=== PATIENT | male | born 1985 | race Caucasian/White ===

== ENCOUNTER 2019-12-05 20:48 | Inpatient (IN) ==
--- OUTSIDE RECORDS SUMMARY | 2019-12-05 20:49 | External Medical Summary | Continuity of Care Document ---
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 , M.D . Refills: 0 Venlafaxine HCl ER 150 MG Oral Capsule E xtended Release 24 Hour; TAKE 1 CAPSULE DAILY. , M.D. Refills: 0 KlonoPIN 1 MG Oral Tablet; TAKE 1 TABLET EVERY 12 HOURS N EEDED. , M.D. Refills: 0 HYDROcodone-Acetaminophen 5-325 MG Oral Tablet; TAKE 1 TABLET EVERY 4 TO 6 HOURS NEEDED FOR PAIN. JORGE ALBERTO Torres Start: 20-Dec-2013 Quantity: 20 Refills: 0 Tamsulosin HCl - 0.4 MG Oral Capsule; TAKE 1 CAPSULE Daily G JORGE ALBERTO wheeler Nany Start: 20-Dec-2013 Quantity: 30 Refills: 0 Prochlorperazine 25 MG Rectal Suppositor y; INSERT 1 SUPPOSITORY RECTALLY 3 TIMES DAILY. JORGE ALBERTO Torres Nany Start: 20-Dec-2013 Quantity: 9 Refills: 0 Procedures Procedures not documented Immunizations Immunizations not documented Family History Grandparent FH: colon cancer (V16.0) (Z80.0) Status: Active Mother Family history of diabetes mellitus (V18.0) (Z83.3) Status: Active Unknown Family Member Family history of cardiac disorder (V17.49) Status: Active Comments: Family History (Z82.49) Family history of hypertension (V17.49) Status: Active Comments: Family History (Z82.49) Family history of lung cancer (V16.1) (Z80.1) Status: Active Comments: Family History Social History - Smoking Status Never smoked tobacco Plan of Treatment Planned Observations Planned Goals not documented Results No Known Results Results not documented
[2019-12-05 21:43] LABS: Appearance Urine Clear (Clear); Bilirubin Urine Negative (Negative); Blood Urine Negative (Negative); Color Urine Yellow; Glucose Urine UA Negative (Negative); Ketones Urine Negative (Negative); Leukocyte Esterase Urine Negative (Negative); Nitrite Urine Negative (Negative); Protein Urine Negative (Negative); Urobilinogen Urine Negative (Negative)
[2019-12-05 21:56] LABS: Basophils # (auto) 0.03 K/uL (0-0.2); Basophils % (auto) 0.3 %; Eosinophils # (auto) 0.14 K/uL (0-0.5); Eosinophils % (auto) 1.3 %; Hematocrit (blood only) 45.6 % (42-52); Immature Granulocytes # (auto) 0.03 K/uL (0.00-0.02); Immature Granulocytes % (auto) 0.3 %; Lymphocytes # (auto) 3.27 K/uL (1.2-3.4); Lymphocytes % (auto) 31.5 %; Mean Corpuscular Hemoglobin 32.4 pg (25-34); Mean Corpuscular Hgb Conc 35.1 g/dL (32-36); Mean Corpuscular Volume 92.3 fL (80-100); Mean Platelet Volume 9.2 fL (7.4-10.4); Monocytes # (auto) 1.11 K/uL (0.11-0.59); Monocytes % (auto) 10.7 %; Neutrophils % (auto) 55.9 %; Platelet Count 446 K/uL (130-400); RDW Coefficient of Variation 12.9 % (11.5-14.5); RDW Standard Deviation 43.3 fL (36.4-46.3); Red Blood Count 4.94 M/uL (4.7-6.1); White Blood Count 10.38 K/uL (4.8-10.8)
--- NOTE | 2019-12-05 21:59 | Emergency Department Note ---
Impression & Plan Mood disorder, Involuntary commitment ED Provider Note Provider: Davis Chery MD DATE OF SERVICE: 12/05/2019 CHIEF COMPLAINT: 302 warrant HISTORY OF PRESENT ILLNESS: Patient is a 34-year-old gentleman history of prior depression presenting today with police on a 302 involuntary warrant. Patient states of last several weeks has been a bit depressed. States about 2 weeks ago he felt depression and discussed this with the crisis center today. They sent him home he says and he was going to call for additional assistance in the morning. Patient states that he does not have any active suicidal or homicidal thoughts. Patient denies any hallucinations or voices at this time. Patient states he does not believe he needs inpatient treatment at this time. Not currently seeing an outpatient counselor or therapist or currently on psychiatric medication. Patient states he has been sleeping fine. Patient has been stressed due to some money lost in the stock market recently. Patient states he lives by himself in an apartment. 302 warrant is reviewed with petitioning statement from the crisis center indicating he made multiple statements to them about plans to commit suicide and also made inquiries about possibly sexually assaulting and/or raping girls. REVIEW OF SYSTEMS: A total of 10 review of systems was obtained and negative except as stated above in the HPI. PAST MEDICAL HISTORY: As noted above MEDICATIONS: Denies current medications SOCIAL HISTORY: Patient is a non-smoker. 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 PHYSICAL EXAM: GENERAL: alert and oriented in no acute distress on stretcher Head: normocephalic and atraumatic EYES: No injection, discharge or icterus. ENT: Mucous membranes pink and moist. LUNGS: Airway patent. No retractions. Breath sounds clear HEART: Regular rate and rhythm. No chest wall tenderness SKIN: Acyanotic, warm, dry, without rashes EXTREMITIES: Without swelling or deformity NEUROLOGICAL: No focal deficits. No aphasia. No facial droop or slurred speech. Ambulatory. Psych: Denies any SI or HI. Denies voices or hallucinations. Flattened affect. Patient does endorse some mild depression. Patient's hypertension was referred to PCP HOSPITAL COURSE: 2119 Patient was first seen and H&P performed. Psychiatric classification case manager present. [id number] paperwork completed. Delegate enroute to ED. 0115 patient accepted to 3 S. Reevaluated the patient who states that he is concerned about taking any medications with feeling anxious. Discussed with him I believe he needs medication is making statements that he believes [employer] has causing cancer and is worried about his neighbor down from his apartment. Long discussion with the patient. Ordered oral Risperdal Patient's laboratory studies and imaging reviewed. Differential includes Mood disorder, infection, hypoglycemia, electrolyte abnormalities, cardiac sources, intracerebral event, toxicologic, trauma, neurologic, as well as other pathologies. IMPRESSION/MEDICAL DECISION MAKING: Patient presents on an involuntary mental health warrant. Patient denies any active symptoms to me other than depression. Denies suicidality. Medical clearance was completed. Seen conjunction with psychiatric classification case manager. The petitioning statement is highly concerning. Patient is a history of psychosis with prior admission to inpatient psychiatric care in 2011. Not currently seeing outpatient treatment or on medications. Very concerned given the retorted petition statement from the crisis center. Believe involuntary grounds exist. 302 was completed. Patient accepted 3 S. further inpatient care. Later on reevaluation the patient seems to be having more psychotic and grandiose thoughts. DIAGNOSIS: mood disorder, involuntary comittment DISPOSITION: Psychiatric Placement 3S Past Med/Surg History Social History Feels Safe at Home: Yes Smoking Status: Never smoker Allergies Allergies Allergy/AdvReac Type Severity Reaction Status Date / Time Penicillins Allergy Unknown Unknown Verified 12/05/19 21:45 Sulfa (Sulfonamide Allergy Unknown Unknown Verified 12/05/19 21:45 Antibiotics) Tobacco Allergy Mild Watery Eye Uncoded 12/05/19 21:45 Home Meds Home Medications Medication Instructions Recorded Confirmed No Known Home Medications 12/05/19 12/05/19 Results & Data (ED) Vital Signs Vital Signs - 24 hr 12/05/19 21:01 12/05/19 23:58 12/06/19 01:11 Temperature 37.1 C Temperature Source Oral Pulse Rate 130 H Pulse Rate [Left] 110 H 102 H Respiratory Rate 17 20 20 Respiratory Effort / Characteristics Non-Labored Spontaneous Non-Labored Spontaneous Respiratory Depth Normal Normal Blood Pressure 144/119 H Blood Pressure [Left Arm] 132/101 H 132/86 Blood Pressure Mean 127 Blood Pressure Mean [Left Arm] 111 101 Blood Pressure Position [Left Arm] Sitting Lying Pulse Oximetry 99 96 96 Oxygen Delivery Method Room Air Room Air Room Air Sepsis Recent Fever Within 48 Hours No Sepsis New/Unexplained Change in Mental Status No Sepsis Action Taken by Nursing No Action Required Laboratory Data Result diagrams: 12/05/19 21:37 12/05/19 21:37 Lab Results 12/05/19 12/05/19 12/05/19 Range/Units 21:04 21:04 21:37 WBC 10.38 (4.8-10.8) K/uL RBC 4.94 (4.7-6.1) M/uL Hgb 16.0 (14.0-18.0) g/dL Hct 45.6 (42-52) % MCV 92.3 (80-100) fL MCH 32.4 (25-34) pg MCHC 35.1 (32-36) g/dL RDW Std Deviation 43.3 (36.4-46.3) fL RDW Coeff of Ferdinand 12.9 (11.5-14.5) % Plt Count 446 H (130-400) K/uL MPV 9.2 (7.4-10.4) fL Immature Gran % (Auto) 0.3 % Neut % (Auto) 55.9 % Lymph % (Auto) 31.5 % [place] % (Auto) 10.7 % Eos % (Auto) 1.3 % Baso % (Auto) 0.3 % Neut # (Auto) 5.80 (1.4-6.5) K/uL Lymph # (Auto) 3.27 (1.2-3.4) K/uL [place] # (Auto) 1.11 H (0.11-0.59) K/uL Eos # (Auto) 0.14 (0-0.5) K/uL Baso # (Auto) 0.03 (0-0.2) K/uL Immature Gran # (Auto) 0.03 H (0.00-0.02) K/uL Sodium (136-145) mmol/L Potassium (3.5-5.1) mmol/L Chloride (98-107) mmol/L Carbon Dioxide (21-32) mmol/L Anion Gap (3-11) BUN (7-18) mg/dl Creatinine (0.6-1.4) mg/dl Est Cr Clr Drug Dosing ml/min Est GFR ( Amer) Est GFR (Non-Af Amer) BUN/Creatinine Ratio (10-20) Glucose (70-99) mg/dl Calcium (8.5-10.1) mg/dl Total Bilirubin (0.2-1) mg/dl AST (15-37) U/L ALT (12-78) U/L Alkaline Phosphatase (45-117) U/L Total Protein (6.4-8.2) gm/dl Albumin (3.4-5.0) gm/dl Globulin (2.5-4.0) gm/dl Albumin/Globulin Ratio (0.9-2) TSH (0.300-4.500) uIu/ml Urine Color Yellow Urine Appearance Clear (Clear) Urine pH 7.0 (4.5-7.5) Ur Specific [place] 1.010 (1.000-1.030) Urine Protein Negative (Negative) Urine Glucose (UA) Negative (Negative) Urine Ketones Negative (Negative) Urine Blood Negative (Negative) Urine Nitrite Negative (Negative) Urine Bilirubin Negative (Negative) Urine Urobilinogen Negative (Negative) Ur Leukocyte Esterase Negative (Negative) Salicylates (2.8-20) mg/dl Urine Opiates Screen Neg (Neg) Ur Methadone, Qual Neg (Neg) Acetaminophen (10-30) ug/ml Urine Barbiturates Neg (Neg) Ur Phencyclidine (PCP) Neg (Neg) U Amphetamin/Meth Scrn Neg (Neg) MDMA (Ecstasy) Screen Neg (Neg) U Benzodiazepines Scrn Neg (Neg) Ur Cocaine Metabolite Neg (Neg) U Marijuana (THC) Screen Neg (Neg) Ethyl Alcohol mg/dL (0-3) mg/dl 12/05/19 12/05/19 12/05/19 Range/Units 21:37 21:37 21:37 WBC (4.8-10.8) K/uL RBC (4.7-6.1) M/uL Hgb (14.0-18.0) g/dL Hct (42-52) % MCV (80-100) fL MCH (25-34) pg MCHC (32-36) g/dL RDW Std Deviation (36.4-46.3) fL RDW Coeff of Ferdinand (11.5-14.5) % Plt Count (130-400) K/uL MPV (7.4-10.4) fL Immature Gran % (Auto) % Neut % (Auto) % Lymph % (Auto) % [place] % (Auto) % Eos % (Auto) % Baso % (Auto) % Neut # (Auto) (1.4-6.5) K/uL Lymph # (Auto) (1.2-3.4) K/uL [place] # (Auto) (0.11-0.59) K/uL Eos # (Auto) (0-0.5) K/uL Baso # (Auto) (0-0.2) K/uL Immature Gran # (Auto) (0.00-0.02) K/uL Sodium 136 (136-145) mmol/L Potassium 3.5 (3.5-5.1) mmol/L Chloride 105 (98-107) mmol/L Carbon Dioxide 25 (21-32) mmol/L Anion Gap 6.0 (3-11) BUN 12 (7-18) mg/dl Creatinine 1.31 (0.6-1.4) mg/dl Est Cr Clr Drug Dosing 78.0 ml/min Est GFR ( Amer) 80.6 Est GFR (Non-Af Amer) 69.6 BUN/Creatinine Ratio 9.0 L (10-20) Glucose 187 H (70-99) mg/dl Calcium 8.8 (8.5-10.1) mg/dl Total Bilirubin 0.4 (0.2-1) mg/dl AST 15 (15-37) U/L ALT 37 (12-78) U/L Alkaline Phosphatase 70 (45-117) U/L Total Protein 8.2 (6.4-8.2) gm/dl Albumin 4.1 (3.4-5.0) gm/dl Globulin 4.1 H (2.5-4.0) gm/dl Albumin/Globulin Ratio 1.0 (0.9-2) TSH 3.680 (0.300-4.500) uIu/ml Urine Color Urine Appearance (Clear) Urine pH (4.5-7.5) Ur Specific [place] (1.000-1.030) Urine Protein (Negative) Urine Glucose (UA) (Negative) Urine Ketones (Negative) Urine Blood (Negative) Urine Nitrite (Negative) Urine Bilirubin (Negative) Urine Urobilinogen (Negative) Ur Leukocyte Esterase (Negative) Salicylates < 1.7 L (2.8-20) mg/dl Urine Opiates Screen (Neg) Ur Methadone, Qual (Neg) Acetaminophen < 2 L (10-30) ug/ml Urine Barbiturates (Neg) Ur Phencyclidine (PCP) (Neg) U Amphetamin/Meth Scrn (Neg) MDMA (Ecstasy) Screen (Neg) U Benzodiazepines Scrn (Neg) Ur Cocaine Metabolite (Neg) U Marijuana (THC) Screen (Neg) Ethyl Alcohol mg/dL < 3.0 (0-3) mg/dl Discharge Plan Visit Data Chief Complaint: Mental Health Evaluation Stated Complaint: EVALUATION ED Provider: Davis Chery Discharge Problem: Mood disorder, Involuntary commitment Forms Stand Alone Forms: [facility], Suicide Prevention Resources Prescriptions Prescriptions: No Action No Known Home Medications RF: 0
[2019-12-05 22:03] LABS: Amphetamines+Metham, Urine Neg (Neg); Barbiturates, Urine Neg (Neg); Benzodiazepine, Urine Neg (Neg); Cocaine, Urine Neg (Neg); MDMA (Ecstacy), Urine Neg (Neg); Methadone, Urine Neg (Neg); Opiate, Urine Neg (Neg); Phencyclidine, Urine Neg (Neg)
[2019-12-05 22:13] LABS: Albumin Level 4.1 gm/dl (3.4-5.0); Calcium 8.8 mg/dl (8.5-10.1); Est GFR (African American) 80.6; Est GFR (Non-African American) 69.6; Potassium 3.5 mmol/L (3.5-5.1)
[2019-12-05 22:16] LABS: Acetaminophen < 2 ug/ml (10-30); Salicylate < 1.7 mg/dl (2.8-20)
[2019-12-05 22:23] LABS: Bilirubin,Total 0.4 mg/dl (0.2-1); Globulin 4.1 gm/dl (2.5-4.0); Thyroid Stimulating Hormone 3.68 uIu/ml (0.300-4.500); Total Protein 8.2 gm/dl (6.4-8.2)
[2019-12-06] MEDS ORDERED: risperiDONE 2 MG TABLET PO STA (01:21)
[2019-12-06] MEDS ORDERED: ALUMINUM/MAGNESIUM SUSP 30 ML UDC PO PRN (01:24)
[2019-12-06] MEDS ORDERED: SODIUM CHLORIDE 0.65% NA SOLN 45 ML (OCEAN) PRN (01:24)
[2019-12-06] MEDS ORDERED: ACETAMINOPHEN 325 MG TAB PO PRN (01:24)
[2019-12-06] MEDS ORDERED: MAGNESIUM HYDROXIDE SUSP 30 ML UDC PO PRN (01:24)
[2019-12-06] MEDS ORDERED: BISMUTH SUBSALICYLATE PER ML OMNICELL CHARGE PO PRN (01:24)
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
[2019-12-06] MEDS: RISPERIDONE ODT 1MG PO SCH ×2 (10:10→21:17)
[2019-12-07 08:08] LABS: Glucose Fasting 100 mg/dl (70-99)
[2019-12-07 08:14] LABS: Chol HDL Ratio 5; Cholesterol 183 mg/dl (0-200); HDL Cholesterol 38 mg/dl; LDL Cholesterol Calculated 120 mg/dl; Triglycerides 123 mg/dl (0-150); VLDL Cholesterol 25 mg/dl
[2019-12-07] MEDS: RISPERIDONE ODT 1MG PO SCH ×2 (08:44→22:27)
--- NOTE | 2019-12-07 11:42 | Psychiatric Progress Note ---
Date of Service December 07, 2019 Impression / Recommendations Impression The patient is a 34-year-old single male who has a history of psychosis NOS and mood disorder NOS, with multiple previous hospitalizations, but although he has had multiple visits to the emergency room for psychiatric complaints such as "depression," he has not been seen here on the inpatient unit for approximately 9 years and says he has not had any psychiatric treatment for the last several years. He presented initially with self-reports of suicidal ideation with various plans, including hanging, self poisoning, etc. Clinical findings at admission included mood alterations and psychotic symptoms. He initially initially reporting depressive symptoms and suicidal ideation with multiple plans, but within 24 hours began to state that his mood was "great." Also, his affect was somewhat expansive, his speech was notably disorganized but was also pressured, voluminous, and suggestive of flight of ideas. It was noted that he had been treated successfully with risperidone and lithium during hospitalizati on here at [facility] in 2011, and has agreed to resume risperidone initially. Risperidone 1 mg twice a day was prescribed, and the patient's response appeared to be favorable. He began sleeping well, reported that he felt that he had "calm down," and we noticed that his thoughts were significantly more organized and focused. His behavior remains slightly intrusive with his peers, but he consistently reported that he was not having any suicidal thoughts, and continue to express an ongoing desire to continue his treatment on an outpatient basis. Given the history, and given the ongoing evidence of some symptoms of viviane, as well as some elements that suggest that the patient may not be fully forthcoming regarding a history of intentional self-injurious behaviors in the past, we are recommending that continued inpatient treatment so that we can reinstitute lithium carbonate, titrated as necessary, and determine his response before returning him to the community. James rosario, as of 11/27/2019 it is determined that the patient, while in need of intensive treatment, is unwilling to agree to stay in the hospital voluntarily, and we do not find that he will meet [place] criteria for inpatient psychiatric treatment beyond 12/10/2019. (1) Psychosis: 12/05 -continue hospitalization on 302, in a medically necessary private r oom due to psychosis. His 302 expires on Tuesday. Continue to gather information toward the need for further involuntary commitment. -Previously diagnosed with psychosis NOS, unknown what his outpatient diagnosis was, and has not been in treatment for years. Differential includes schizophrenia, schizoaffective disorder, and a psychotic mood disorder. -He agreed to resume risperidone as it was helpful in the past, and will start 1 mg twice daily with fasting labs tomorrow. Reviewed risks and benefits, and patient has tolerated first 2 doses well. -Gather collateral information if able to identify any supports in the community. 12/06 -Patient reports that he feels that he is responding favorably to risperidone. He notes some difficulty with sedation, and, more specifically, says that he misses having as much energy has he had had prior to admission. However, he also agrees that his thinking has become more organized, he has become more calm, and he is now sleeping well. -We discussed with the patient the fact that he had responded favorably to a combination of risperidone and lithium carbonate in the past, and the patient said that he recalls taking lithium carbonate and does not recall any adverse effects. However, he seemed ambivalent about the question of adding a second psychiatric medication at this point. We recommended that he remain in the hospital so that we can restart lithium carbonate as a mood stabilizer. He accepts that he is having mood alterations and mood swings, and does endorse certain symptoms consistent with viviane in the recent past. However, he is not willing to remain hospitalized voluntarily, and we do not find at this time that he can be expected to continue to meet criteria for involuntary treatment following another 2 or 3 days of observation and medication adjustments as indicated. -The patient's request is that the decision to start lithium be made on an outpatient basis. He reports intent to be fully adherent with the outpatient medication and reiterates that the reason that he had the mental health hotline was in order to secure outpatient services. -Some of the patient's reports are contradictory, or seem somewhat unlikely. For example, he told me that he was always very close with his mother, and that she had in 2012 of amyotrophic lateral sclerosis. When I asked him if that might of had something to do with his psychiatric hospitalization, he responded by saying, "no, I do not think that my being in the hospital had anything to do with it. I then asked him if he had been with his mother when she , and he said that he had not. I asked him if he attended a or memorial service for his mother, and he said "I do not remember. I do not think so." He also told me that he had been close with his father who we reports within a year of his mother. He also said he could remember if he went to a memorial or service for his father, but he did say that he knows that his father of lung cancer. (2) Mood disorder: 12/05 -differential includes psychotic depression or bipolar disorder. Assessment limited as patient is a poor historian. Although he reports primary depressive symptoms, his affect is expansive, and this morning he was singing and dancing and is reporting good mood. Attempt to identify someone for collateral information as above, and continue to monitor and observe mood symptoms here. He had a good response to lithium when hospitalized here in 2011, so could consider a retrial of that medication. 12/06 -The addition of risperidone 1 mg twice a day seems to have stabilized the patient's mood to some degree. The clinical data so far would suggest that the patient may meet criteria for a rapid cycling bipolar disorder or, possibly, for schizoaffective disorder bipolar type. -The patient does endorse certain manic symptoms prior to admission, as well as yesterday. He feels that risperidone has assisted him in that regard and that he has noted that his mood seems more stable. He also reports that he feels that he is more often depressed than manic. When asked to talk about his initial statement that he is "the greatest kana in the world," he initially said that he was kidding and that he understands that that sounds grandiose, but he also was able to say that in the past he has sometimes felt that way. -The patient's thought content today is probably more consistent with depression. He was somewhat self depreciating and talked about the fact that he has had difficulty with various academic pursuits (he claims that within the past 8 years she has tried several colleges, including [employer] without success). 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 He externalizes responsibility for the fact that he lost both of these jobs, but says that he recognizes that at the age of 34 he should have a steady source of income and more friendsalthough he says that he currently has 2 fairly close friends that he can count on. Risk Factors Assessment Male: Yes : Yes Do You Have Access To A Gun?: No (Patient said he is unable to own a gun as he has been involuntarily committed in the past.) Health Problems: Yes Mental Health Diagnoses: Yes Substance Use Disorders: No Previous Attempt: Yes Previous Psychiatric Hospitalization: Yes Smoker: No Protective Factors Assessment Cheondoism Beliefs: Yes : No Responsible for Young Children: No Employed: No Supportive Family: No Good Rapport with Provider: No Interval History Chief Complaint "Depressed, I guess". Review of Systems Sleep Information Total Hours of Sleep: 7.75 Sleep Comments: + 2.5hrs on evening shift Meal Information Percent Meal Consumed - Breakfast: 100 Percent Meal Consumed - Lunch: 100 Percent Meal Consumed - Dinner: 95 Subjective Subjective Patient was seen & assessed and interval progress reviewed with treatment team. I met individually with the patient in order to assess his current mental status, evaluate his response to treatment, coordinate any necessary changes in the patient's treatment plan with the patient, and address issues, questions and concerns that may arise. I began by asking the patient to tell me a little bit about himself, and he responded, "okay. I am the greatest kana in the world!" However, he laughed and said that he was simply joking. He also added, "That sounds grandiose, doen't it? He reports that prior to admission he had been experiencing decreased sleep, decreased desire for sleep, increased energy, and difficulty with racing thoughts. At the same time, he said that he had been feeling "kind of lonely and depressed," and explained that he had called a mental health hotline and reported suicidal ideas with suicidal plans, not because he was actually suicidal, but because he was hoping that the threats of suicide would cause the people at the other end of the line to be more likely to actively help him obtain treatment. More specifically, he said that he was looking for an outpatient therapist, a psychiatrist, and "an opportunity to make friends." He acknowledges that he has been in psychiatric treatment, off and on, since childhood ("about the age of 5, I think," he said), but he notes that he has not been in treatment either on an inpatient or an outpatient basis for several years. When asked about suicidal thoughts, the patient reiterated that he had never had suicidal thoughts, but had mistakenly assumed that if he said he was suicidal that would be "a shortcut" to getting an outpatient provider sooner. According the patient, he has no history of suicide attempts, but he does acknowledge a history of intentional self-injurious behaviors as a way of handling stress. The admission history and physical from a 2012 admission to the behavioral health unit references an unspecified history of a suicide attempt, but when the patient was confronted about this he reported that he has deliberately cut himself, but has never actually made a suicide attempt. The patient reports that he does not have any history of intentionally causing physical harm to the person or property of others. Physical Exam Psychiatric Orientation: alert, oriented x 3 and cooperative Apperance: appropriately dressed and appropriately groomed Eye Contact: + fair eye contact Motor Behavior: steady gait and station Speech: normal rate/rhythm/volume of speech Affect: + constricted affect "I guess it is okay." Thought Process: + tangential thought process The patient appears to be somewhat guarded, but no delusional material is elicited. Suicidal Thoughts: denies suicidal thoughts With reference to the patient's preadmission expression of suicidal ideation with multiple plans, the patient reports that he actually never had any suicidal plans and only reported suicidal ideation as a way of securing more rapid treatment and assistance. Homicidal Thoughts: denies homicidal thoughts Hallucinations: + auditory hallucinations The patient reports that in the past he has experienced both visual and auditory hallucinations. He notes that the hallucinations often were of a running commentary nature, and sometimes he would hear more than 1 voice talking back and forth, often as an observation of the patient's behavior such as, "Is he brushing his teeth?" (Voice#1) followed by, "Yes, he is doing it right now." (Voice #2) the patient notes, unconvincingly, that he was successful in stopping the voices through "deep meditation." He also says that he has not had any recent visual disturbances. Cognition: recent memory grossly intact, remote memory grossly intact, attention grossly intact and language grossly intact Estimated Intelligence: + above average estimated intelligence Insight: + limited insight The patient does recognize his need for treatment, although he seems to believe that part of his treatment will be to find friends for him. 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 Judgement: + impaired judgement We are recommending continued inpatient treatment. The old records indicate that he had responded well to the addition of lithium carbonate, and we talked to him about our preference that he stay in the hospital so that we could begin, titrate, and evaluate his response to lithium prior to discharge. The patient's focus was on leaving. Vital Signs (Past 24 Hours) Last Vital Signs Temp 36.8 C 12/07/19 06:00 Pulse 89 12/07/19 06:20 Resp 18 12/07/19 06:00 BP 113/78 12/07/19 06:20 Pulse Ox 96 12/06/19 02:27 Results & Data ([facility]) Laboratory Results Laboratory Results - last 24 hr 12/07/19 07:26 Fasting Glucose 100 H Triglycerides 123 Cholesterol 183 LDL Cholesterol, Calc 120 VLDL Cholesterol, Calc 25 HDL Cholesterol 38 Cholesterol/HDL Ratio 5 Current Inpatient Medications Current Inpatient Medications: Current Inpatient Medications Acetaminophen (Tylenol) 650 mg PO Q4H PRN PRN Reason: Headache or Minor Fever Stop: 01/05/20 01:23 Al Hydrox/Mg Hydrox/Simethicone (Maalox) 30 ml PO Q4H PRN PRN Reason: GI Upset Stop: 01/05/20 01:23 Bismuth Subsalicylate (Kaopectate) 15 ml PO PRN PRN PRN Reason: Loose Stool Stop: 01/05/20 01:23 Hydroxyzine HCl (Vistaril) 50 mg PO HSZ PRN PRN Reason: Insomnia Stop: 01/05/20 01:23 Hydroxyzine HCl (Vistaril) 25 mg PO Q4H PRN PRN Reason: Anxiety Stop: 01/05/20 01:23 Magnesium Hydroxide (Milk Of Magnesia) 30 ml PO DAILY PRN PRN Reason: Constipation Stop: 01/05/20 01:23 Risperidone (Risperdal M) 1 mg PO BID MOUNIKA Stop: 01/05/20 09:59 Last Admin: 12/07/19 08:44 Dose: 1 mg Documented by: Sodium Chloride ([place] Nasal) 1 - 2 sprays NA PRN PRN PRN Reason: Nasal Dryness/Congestion Stop: 01/05/20 01:23 Mental Health & Subst Abuse Tx Psychiatrist Name of Psychiatrist: Toshia Zambrano Psychiatrist's Psychiatric Appointment Comment: [phone] [facility] [place] Office Technologist Name of Office Technologist: willing to get one Post Discharge Appointments Primary Care Physician Name Of Family Doctor: Mee Verduzco Primary Care Provider Appointment Comment: [address] [place] [id number] Contact Information Discharge Discharge Address: [address] [place] [address]
[2019-12-07] MEDS ORDERED: risperiDONE 1 MG TABLET PO PRN (15:03)
[2019-12-07] MEDS ORDERED: LORazepam 0.5 MG TAB PO PRN (15:05)
[2019-12-07] MEDS: LITHIUM CARBONATE 300 MG TAB PO SCH ×2 (16:51→22:26)
[2019-12-07] MEDS ORDERED: RISPERIDONE ODT 1MG PO SCH ×2 (22:00)
[2019-12-08] MEDS: LITHIUM CARBONATE 300 MG TAB PO SCH ×2 (08:07→21:32)
[2019-12-08] MEDS: RISPERIDONE ODT 1MG PO SCH ×2 (08:07→21:31)
--- NOTE | 2019-12-08 08:39 | Psychiatric Progress Note ---
Date of Service December 08, 2019 Impression / Recommendations Impression The patient is a 34-year-old single male who has a history of psychosis NOS and mood disorder NOS, with multiple previous hospitalizations, but although he has had multiple visits to the emergency room for psychiatric complaints such as "depression," he has not been seen here on the inpatient unit for approximately 9 years and says he has not had any psychiatric treatment for the last several years. He presented initially with self-reports of suicidal ideation with various plans, including hanging, self poisoning, etc. Clinical findings at admission included mood alterations and psychotic symptoms. Within 24 hours he began to state that his mood was "great," and affect appeared expansive, with notably disorganized, pressured, and voluminous speech, suggestive of flight of ideas. It was noted that he had been treated successfully with risperidone and lithium during hospitalization here at [facility] in 2011, and these medications have been resumed. He has been delusional and paranoid, looking for weapons and stating beliefs that terrorists were going to come on the unit and kill everyone. (1) Psychosis: 12/05 -continue hospitalization on , in a medically necessary private room due to psychosis. His 302 expires on Tuesday. Continue to gather information toward the need for further involuntary commitment. -Previously diagnosed with psychosis NOS, unknown what his outpatient diagnosis was, and has not been in treatment for years. Differential includes schizophrenia, schizoaffective disorder, and a psychotic mood disorder. -He agreed to resume risperidone as it was helpful in the past, and will start 1 mg twice daily with fasting labs tomorrow. Reviewed risks and benefits, and patient has tolerated first 2 doses well. -Gather collateral information if able to identify any supports in the community. 12/06 -Patient reports that he feels that he is responding favorably to risperidone. He notes some difficulty with sedation, and, more specifically, says that he misses having as much energy has he had had prior to admission. However, he also agrees that his thinking has become more organized, he has become more calm, and he is now sleeping well. -We discussed with the patient the fact that he had responded favorably to a combination of risperidone and lithium carbonate in the past, and the patient said that he recalls taking lithium carbonate and does not recall any adverse effects. However, he seemed ambivalent about the question of adding a second psychiatric medication at this point. We recommended that he remain in the hospital so that we can restart lithium carbonate as a mood stabilizer. He accepts that he is having mood alterations and mood swings, and does endorse certain symptoms consistent with viviane in the recent past. However, he is not willing to remain hospitalized voluntarily, and we do not find at this time that he can be expected to continue to meet criteria for involuntary treatment following another 2 or 3 days of observation and medication adjustments as indicated. -The patient's request is that the decision to start lithium be made on an outpatient basis. He reports intent to be fully adherent with the outpatient medication and reiterates that the reason that he had the mental health hotline was in order to secure outpatient services. -Some of the patient's reports are contradictory, or seem somewhat unlikely. For example, he told me that he was always very close with his mother, and that she had in 2012 of amyotrophic lateral sclerosis. When I asked him if that might of had something to do with his psychiatric hospitalization, he responded by saying, "no, I do not think that my being in the hospital had anything to do with it. I then asked him if he had been with his mother when she , and he said that he had not. I asked him if he attended a or memorial service for his mother, and he said "I do not remember. I do not think so." He also told me that he had been close with his father who we reports within a year of his mother. He also said he could remember if he went to a memorial or service for his father, but he did say that he knows that his father of lung cancer. 12/07 -Increase risperidone to 2 mg twice daily, and continue as needed dose. Continue lithium, consolidate to 900 mg at bedtime for renal protection, and check trough level after 5 days (12/12/2019). -303 hearing scheduled for Tuesday. Attempt to get collateral information from his friend Willard, as this is the only support he can identify. -He will need outpatient care including psychiatry, therapy, and case management. Address on Tuesday (2) Mood disorder: 12/05 -differential includes psychotic depression or bipolar disorder. Assessment limited as patient is a poor historian. Although he reports primary depressive symptoms, his affect is expansive, and this morning he was singing and dancing and is reporting good mood. Attempt to identify someone for collateral information as above, and continue to monitor and observe mood symptoms here. He had a good response to lithium when hospitalized here in 2011, so could consider a retrial of that medication. 12/06 -The addition of risperidone 1 mg twice a day seems to have stabilized the patient's mood to some degree. The clinical data so far would suggest that the patient may meet criteria for a rapid cycling bipolar disorder or, possibly, for schizoaffective disorder bipolar type. -The patient does endorse certain manic symptoms prior to admission, as well as yesterday. He feels that risperidone has assisted him in that regard and that he has noted that his mood seems more stable. He also reports that he feels that he is more often depressed than manic. When asked to talk about his initial statement that he is "the greatest kana in the world," he initially said that he was kidding and that he understands that that sounds grandiose, but he also was able to say that in the past he has sometimes felt that way. -The patient's thought content today is probably more consistent with depression. He was somewhat self depreciating and talked about the fact that he has had difficulty with various academic pursuits (he claims that within the past 8 years she has tried several colleges, including [employer] without success). 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 He externalizes responsibility for the fact that he lost both of these jobs, but says that he recognizes that at the age of 34 he should have a steady source of income and more friendsalthough he says that he currently has 2 fairly close friends that he can count on. Risk Factors Assessment Male: Yes : Yes Do You Have Access To A Gun?: No (Patient said he is unable to own a gun as he has been involuntarily committed in the past.) Health Problems: Yes Mental Health Diagnoses: Yes Substance Use Disorders: No Previous Attempt: Yes Previous Psychiatric Hospitalization: Yes Smoker: No Protective Factors Assessment Gnosticist Beliefs: Yes : No Responsible for Young Children: No Employed: No Supportive Family: No Good Rapport with Provider: No Interval History Identifying Information BOBBY SRINIVASAN is a 34-year-old M who currently lives in [place] alone, has a history of schizophrenia, and was admitted on 12/06/19 01:24 on a 302 involuntary commitment for psychosis and SI with multiple plans. Chief Complaint "Well I'm in here and kind of sad because I wanna get out of here". Review of Systems Sleep Information Total Hours of Sleep: 13.25 Sleep Comments: + 2.5hrs on evening shift Meal Information Percent Meal Consumed - Breakfast: 100 Percent Meal Consumed - Lunch: 100 Percent Meal Consumed - Dinner: 95 Subjective Subjective Patient was seen & assessed and interval progress reviewed with nursing and social work. Staff report patient was delusional and paranoid yesterday, stating that all staff members were the devil, and said he was looking for a weapon because he believed terrorists were going to break onto the unit at any moment and attack. Due to concerns for ongoing psychosis and suicidality, a 303 petition was completed and hearing scheduled for Tuesday. On my assessment today, the patient states he is upset that he is still here as he would like to leave. When asked about his mood, he says that medications "make me a little bit lower in excitedness," and gives conflicting reports about whether mood is better or worse than when he came to the hospital. When asked how he has been sleeping, he says "well, I sleep here," gesturing to his bed. With additional questioning he clarifies that he feels he is sleeping "okay," and when asked if he is getting enough sleep and feels rested, he says "well my eyes burn when I wake up." He is evasive when asked about his statements that staff are the devil and that he fears for his safety here, stating he does not want to talk about it because it "makes me uncomfortable." He says he has spoken to his friend, Willard, who lives locally, but cannot identify any other supports and does not have outpatient follow-up arranged. Physical Exam Psychiatric Orientation: alert and cooperative (Partially, but evasive with questioning, and refuses to answer some questions) Dressed in multiple layers, wearing 2 polo shirts and scrub pants. He was initi ally found standing in his room, staring out the window, holding a banana in his hands. He has a receding hairline and patchy, unkempt facial hair. Eye Contact: + poor eye contact Motor Behavior: steady gait and station and no abnormal motor movements Minimal, delayed, monotone. Affect: + depressed affect (Appears paranoid and fearful) "I have to fight every day to get up and cheer up." Thought Process: + concrete thought process; + thought association not intact Delayed thoughts, paucity of thought content, evasive, at times answers very concretely Thought Content: + preoccupation, + paranoid, + delusions and + persecution Answers with unrelated information Homicidal Thoughts: denies homicidal thoughts Denies hallucinations, but at times appears to be listening to unseen others. Cognition: + recent memory not intact and + attention not intact Insight: + poor insight Judgement: + poor judgement Vital Signs (Past 24 Hours) Last Vital Signs Temp 36.9 C 12/08/19 06:28 Pulse 91 H 12/08/19 06:28 Resp 18 12/08/19 06:28 BP 126/80 12/08/19 06:28 Pulse Ox 96 12/06/19 02:27 Results & Data ([facility]) Current Inpatient Medications Current Inpatient Medications: Current Inpatient Medications Acetaminophen (Tylenol) 650 mg PO Q4H PRN PRN Reason: Headache or Minor Fever Stop: 01/05/20 01:23 Al Hydrox/Mg Hydrox/Simethicone (Maalox) 30 ml PO Q4H PRN PRN Reason: GI Upset Stop: 01/05/20 01:23 Bismuth Subsalicylate (Kaopectate) 15 ml PO PRN PRN PRN Reason: Loose Stool Stop: 01/05/20 01:23 Hydroxyzine HCl (Vistaril) 50 mg PO HSZ PRN PRN Reason: Insomnia Stop: 01/05/20 01:23 Hydroxyzine HCl (Vistaril) 25 mg PO Q4H PRN PRN Reason: Anxiety Stop: 01/05/20 01:23 Bel-Ridge Carbonate (Bel-Ridge Carbonate) 600 mg PO HS MOUNIKA Stop: 01/06/20 21:59 Last Admin: 12/07/19 22:26 Dose: 600 mg Documented by: Bel-Ridge Carbonate (Bel-Ridge Carbonate) 300 mg PO QAM MOUNIKA Stop: 01/06/20 14:59 Last Admin: 12/08/19 08:07 Dose: 300 mg Documented by: Lorazepam (Ativan) 0.5 mg PO Q6H PRN PRN Reason: Anxiety/Agitation Stop: 01/06/20 15:04 Last Admin: 12/07/19 15:20 Dose: 0.5 mg Documented by: Magnesium Hydroxide (Milk Of Magnesia) 30 ml PO DAILY PRN PRN Reason: Constipation Stop: 01/05/20 01:23 Risperidone (Risperdal M) 1 mg PO DAILY MOUNIKA Stop: 01/07/20 08:59 Last Admin: 12/08/19 08:07 Dose: 1 mg Documented by: Risperidone (Risperdal M) 2 mg PO HS MOUNIKA Stop: 01/06/20 21:59 Last Admin: 12/07/19 22:27 Dose: 2 mg Documented by: Risperidone (Risperdal) 1 mg PO Q6H PRN PRN Reason: viviane/anxiety/agitation Stop: 01/06/20 15:02 Last Admin: 12/07/19 15:24 Dose: 1 mg Documented by: Sodium Chloride (Wharton Nasal) 1 - 2 sprays NA PRN PRN PRN Reason: Nasal Dryness/Congestion Stop: 01/05/20 01:23 Mental Health & Subst Abuse Tx Psychiatrist Name of Psychiatrist: Toshia Zambrano Psychiatrist's Psychiatric Appointment Comment: [phone] [facility] Economist Name of Tax Economist: PRASAD Phone Number for Tax Economist: [phone] Case Management Appointment Comment: [address] [facility], [address] [place] [address] Post Discharge Appointments Primary Care Physician Name Of Family Doctor: Mee Verduzco Primary Care Provider Appointment Comment: [address] [place] [address] Contact Information Discharge Discharge Address: [address] [place] [address], [place] [address]
--- NOTE | 2019-12-09 08:19 | Psychiatric Progress Note ---
Date of Service December 09, 2019 Impression / Recommendations Impression The patient is a 34-year-old single male who has a history of psychosis NOS and mood disorder NOS, with multiple previous hospitalizations, but although he has had multiple visits to the emergency room for psychiatric complaints such as "depression," he has not been seen here on the inpatient unit for approximately 9 years and says he has not had any psychiatric treatment for the last several years. He presented initially with self-reports of suicidal ideation with various plans, including hanging, self poisoning, etc. Clinical findings at admission included mood alterations and psychotic symptoms. Within 24 hours he began to state that his mood was "great," and affect appeared expansive, with notably disorganized, pressured, and voluminous speech, suggestive of flight of ideas, but mood continues to vacillate with both depressive and manic symptoms. He remains psychotic, disorganized, with delusions of persecution and paranoia, and is very guarded and reluctant to discuss the symptoms. It was noted that he had been treated successfully with risperidone and lithium during hospitalization here at [facility] in 2011, and these medications have been resumed. He has been delusional and paranoid, looking for weapons and stating beliefs that terrorists were going to come on the unit and kill everyone. He is on a 302 involuntary commitment, with a 303 hearing scheduled for tomorrow. (1) Psychosis: 12/05 -continue hospitalization on 302, in a medically necessary private room due to psychosis. His 302 expires on Tuesday. Continue to gather information toward the need for further involuntary commitment. -Previously diagnosed with psychosis NOS, unknown what his outpatient diagnosis was, and has not been in treatment for years. Differential includes schizophrenia, schizoaffective disorder, and a psychotic mood disorder. -He agreed to resume risperidone as it was helpful in the past, and will start 1 mg twice daily with fasting labs tomorrow. Reviewed risks and benefits, and patient has tolerated first 2 doses well. -Gather collateral information if able to identify any supports in the community. 12/06 -Patient reports that he feels that he is responding favorably to risperidone. He notes some difficulty with sedation, and, more specifically, says that he misses having as much energy has he had had prior to admission. However, he also agrees that his thinking has become more organized, he has become more calm, and he is now sleeping well. -We discussed with the patient the fact that he had responded favorably to a combination of risperidone and lithium carbonate in the past, and the patient said that he recalls taking lithium carbonate and does not recall any adverse effects. However, he seemed ambivalent about the question of adding a second psychiatric medication at this point. We recommended that he remain in the hospital so that we can restart lithium carbonate as a mood stabilizer. He accepts that he is having mood alterations and mood swings, and does endorse certain symptoms consistent with viviane in the recent past. However, he is not willing to remain hospitalized voluntarily, and we do not find at this time that he can be expected to continue to meet criteria for involuntary treatment following another 2 or 3 days of observation and medication adjustments as indicated. -The patient's request is that the decision to start lithium be made on an outpatient basis. He reports intent to be fully adherent with the outpatient medication and reiterates that the reason that he had the mental health hotline was in order to secure outpatient services. -Some of the patient's reports are contradictory, or seem somewhat unlikely. For example, he told me that he was always very close with his mother, and that she had in 2012 of amyotrophic lateral sclerosis. When I asked him if that might of had something to do with his psychiatric hospitalization, he responded by saying, "no, I do not think that my being in the hospital had anything to do with it. I then asked him if he had been with his mother when she , and he said that he had not. I asked him if he attended a or memorial service for his mother, and he said "I do not remember. I do not think so." He also told me that he had been close with his father who we reports within a year of his mother. He also said he could remember if he went to a memorial or service for his father, but he did say that he knows that his father of lung cancer. 12/07 -Increase risperidone to 2 mg twice daily, and continue as needed dose. Continue lithium, consolidate to 900 mg at bedtime for renal protection, and check trough level after 5 days (12/12/2019). -303 hearing scheduled for Tuesday. Attempt to get collateral information from his friend Willard, as this is the only support he can identify. -He will need outpatient care including psychiatry, therapy, and case management. Address on Tuesday. 12/08 -Social work attempting to contact his friend Willard for collateral information. 303 hearing tomorrow. -Continue current medication doses. Discussed option of switching risperidone to paliperidone, given patient's concern about side effects and also to allow an option of an ROBERT, but he was unwilling to do this. Previously responded to 6 mg daily of risperidone, so may need further dose titration. (2) Mood disorder: 12/05 -differential includes psychotic depression or bipolar disorder. Assessment limited as patient is a poor historian. Although he reports primary depressive symptoms, his affect is expansive, and this morning he was singing and dancing and is reporting good mood. Attempt to identify someone for collateral information as above, and continue to monitor and observe mood symptoms here. He had a good response to lithium when hospitalized here in 2011, so could consider a retrial of that medication. 12/06 -The addition of risperidone 1 mg twice a day seems to have stabilized the patient's mood to some degree. The clinical data so far would suggest that the patient may meet criteria for a rapid cycling bipolar disorder or, possibly, for schizoaffective disorder bipolar type. -The patient does endorse certain manic symptoms prior to admission, as well as yesterday. He feels that risperidone has assisted him in that regard and that he has noted that his mood seems more stable. He also reports that he feels that he is more often depressed than manic. When asked to talk about his initial statement that he is "the greatest kana in the world," he initially said that he was kidding and that he understands that that sounds grandiose, but he also was able to say that in the past he has sometimes felt that way. -The patient's thought content today is probably more consistent with depression. He was somewhat self depreciating and talked about the fact that he has had difficulty with various academic pursuits (he claims that within the past 8 years she has tried several colleges, including [employer] without success). 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 He externalizes responsibility for the fact that he lost both of these jobs, but says that he recognizes that at the age of 34 he should have a steady source of income and more friendsalthough he says that he currently has 2 fairly close friends that he can count on. Risk Factors Assessment Male: Yes : Yes Do You Have Access To A Gun?: No (Patient said he is unable to own a gun as he has been involuntarily committed in the past.) Health Problems: Yes Mental Health Diagnoses: Yes Substance Use Disorders: No Previous Attempt: Yes Previous Psychiatric Hospitalization: Yes Smoker: No Protective Factors Assessment Sikh Beliefs: Yes : No Responsible for Young Children: No Employed: No Supportive Family: No Good Rapport with Provider: No Interval History Identifying Information BOBBY SRINIVASAN is a 34-year-old M who currently lives in [place] alone, has a history of schizophrenia, and was admitted on 12/06/19 01:24 on a 302 involuntary commitment for psychosis and SI with multiple plans. Chief Complaint " I don't feel good in my stomach". Review of Systems Sleep Information Total Hours of Sleep: 8 Sleep Comments: + 2.5hrs on evening shift Meal Information Percent Meal Consumed - Breakfast: 100 Percent Meal Consumed - Lunch: 100 Percent Meal Consumed - Dinner: 100 Subjective Subjective Patient was seen & assessed and interval progress reviewed with nursing and social work. Staff report he remains disorganized, labile, paranoid and delusional, told staff there were "the devil," and was unable to interact appropriately during a game of checkers. He attended community meeting and participated, but many of his responses were unrelated and bizarre despite attempts to redirect him. He refused his morning dose of risperidone, stating that he thought it made him feel nauseated after he took it last night, although he had just finished eating a large breakfast. On my assessment, he states that he is worried about various side effects that could be related to medications, including nausea which occurred last night, denies vomiting, constipation, diarrhea. He also reports "tired, like the blood is draining from my head," and says "my eye is not moving right." He attributes all of these somatic concerns to medication, stating he would like to decrease his doses of medication. Reports thoughts are "confusing, my brain's going 'blaaahhhh blaaahhh', instead of words." He continues to report paranoia and persecutory delusions, but does not want to discuss the details, stating that it scares him and that if he does not think about it he does not feel as scared. He reports continued concerns that others would harm him, but then says he would like to leave the hospital although he cannot review any kind of safety plan. He denies suicidal thoughts, and says he thinks they resolved because "I was scared." Shortly after that, he says that he is still very fearful. Discussed his concerns about medications, including that any antipsychotic we use will likely cause some side effects in the short-term, and that this is expected in the acute stabilization phase. Also discussed various alternatives to his current medications, including a switch to paliperidone or similar antipsychotic with a lower side effect risk, but he declined this stating "A[employer], that heartburn drug, they said it causes diseases." He ultimately said he wants to stay on his current medications, and explained that the plan was to titrate his doses to the previously effective doses, and that we are not yet there, and that given ongoing symptoms, I cannot recommend decreasing his doses. We discussed other ways to mitigate side effects, and encouraged him to drink more water as he had been drinking more coffee yesterday per his report. Discussed his 303 hearing tomorrow and explained what I would be saying and again reviewed treatment recommendations. He abruptly interrupted to say "you've been asking me about pooping for 5 days, now I actually need to poop." Advised him to go to the bathroom if he needed to, and he replied "now it's stopped." He was unable to indicate whether he was in agreement with the treatment recommendations or not, asking what he should say at the hearing and was advised to talk to his workers compensation defense attorney. He then said he would agree to "what ever is best," but immediately said he wanted his medication doses reduced. Physical Exam Psychiatric Orientation: alert and cooperative Apperance: appropriately dressed Dressed casually in a T-shirt, receding hairline, patchy facial hair. Seated in no acute distress. Eye Contact: + fair eye contact Motor Behavior: steady gait and station and no abnormal motor movements Halting speech, often does not finish sentences Affect: + depressed affect, + anxious affect and + constricted affect "Really tired." Thought Process: + tangential thought process Disorganized, often answers with unrelated information, or makes conflicting statements Thought Content: + paranoid, + delusions, + ideas of reference and + persecution Suicidal Thoughts: denies suicidal thoughts Homicidal Thoughts: denies homicidal thoughts But reports fears that others want to kill him Hallucinations: no auditory hallucinations Cognition: + recent memory not intact and + attention not intact Insight: + limited insight Judgement: + limited judgement Vital Signs (Past 24 Hours) Last Vital Signs Temp 36.7 C 12/09/19 06:39 Pulse 99 H 12/09/19 06:39 Resp 18 12/09/19 06:39 BP 133/93 12/09/19 06:39 Pulse Ox 96 12/06/19 02:27 Results & Data ([facility]) Current Inpatient Medications Current Inpatient Medications: Current Inpatient Medications Acetaminophen (Tylenol) 650 mg PO Q4H PRN PRN Reason: Headache or Minor Fever Stop: 01/05/20 01:23 Al Hydrox/Mg Hydrox/Simethicone (Maalox) 30 ml PO Q4H PRN PRN Reason: GI Upset Stop: 01/05/20 01:23 Bismuth Subsalicylate (Kaopectate) 15 ml PO PRN PRN PRN Reason: Loose Stool Stop: 01/05/20 01:23 Hydroxyzine HCl (Vistaril) 50 mg PO HSZ PRN PRN Reason: Insomnia Stop: 01/05/20 01:23 Hydroxyzine HCl (Vistaril) 25 mg PO Q4H PRN PRN Reason: Anxiety Stop: 01/05/20 01:23 Kunkle Carbonate (Kunkle Carbonate) 900 mg PO HS MOUNIKA Stop: 01/08/20 21:59 Lorazepam (Ativan) 0.5 mg PO Q6H PRN PRN Reason: Anxiety/Agitation Stop: 01/06/20 15:04 Last Admin: 12/07/19 15:20 Dose: 0.5 mg Documented by: Magnesium Hydroxide (Milk Of Magnesia) 30 ml PO DAILY PRN PRN Reason: Constipation Stop: 01/05/20 01:23 Risperidone (Risperdal) 1 mg PO Q6H PRN PRN Reason: viviane/anxiety/agitation Stop: 01/06/20 15:02 Last Admin: 12/07/19 15:24 Dose: 1 mg Documented by: Risperidone (Risperdal M) 2 mg PO BID MOUNIKA Stop: 01/07/20 20:59 Last Admin: 12/08/19 21:31 Dose: 2 mg Documented by: Sodium Chloride ([place] Nasal) 1 - 2 sprays NA PRN PRN PRN Reason: Nasal Dryness/Congestion Stop: 01/05/20 01:23 Mental Health & Subst Abuse Tx Psychiatrist Name of Psychiatrist: Toshia Zambrano Psychiatrist's Psychiatric Appointment Comment: [id number] [facility] Work[facility] Tra[facility] Name of Maintenance Worker House Trailer: PRASAD Phone Number for Maintenance Worker House Trailer: [phone] Case Management Appointment Comment: [address] [facility], [address] [place] [address] Post Discharge Appointments Primary Care Physician Name Of Family Doctor: Mee Verduzco Primary Care Provider Appointment Comment: [address] [place] [address] Contact Information Discharge Discharge Address: [address] [place] [address], [place] [address]
[2019-12-09] MEDS: RISPERIDONE ODT 1MG PO SCH ×2 (10:38→20:22)
[2019-12-09] MEDS: LITHIUM CARBONATE 300 MG TAB PO SCH (20:23)
--- NOTE | 2019-12-10 06:35 | Psychiatric Progress Note ---
Date of Service December 10, 2019 Impression / Recommendations Impression The patient is a 34-year-old single male who has a history of psychosis NOS and mood disorder NOS, with multiple previous hospitalizations, but although he has had multiple visits to the emergency room for psychiatric complaints such as "depression," he has not been seen here on the inpatient unit for approximately 9 years and says he has not had any psychiatric treatment for the last several years. He presented initially with self-reports of suicidal ideation with various plans, including hanging, self poisoning, etc. Clinical findings at admission included mood alterations and psychotic symptoms. Within 24 hours he began to state that his mood was "great," and affect appeared expansive, with notably disorganized, pressured, and voluminous speech, suggestive of flight of ideas, but mood continues to vacillate with both depressive and manic symptoms. He remains psychotic, disorganized, with delusions of persecution and paranoia, and is very guarded and reluctant to discuss his perceptions. It was noted that he had been treated successfully with risperidone and lithium during hospitalization here at [facility] in 2011, and these medications have been resumed. He has been delusional and paranoid, looking for weapons and stating beliefs that terrorists were going to come on the unit and kill everyone. He is on a 303 involuntary commitment as of 12/10/2019. (1) Psychosis: 12/05 -continue hospitalization on 302, in a medically necessary private room due to psychosis. His 302 expires on Tuesday. Continue to gather information toward the need for further involuntary commitment. -Previously diagnosed with psychosis NOS, unknown what his outpatient diagnosis was, and has not been in treatment for years. Differential includes schi zophrenia, schizoaffective disorder, and a psychotic mood disorder. -He agreed to resume risperidone as it was helpful in the past, and will start 1 mg twice daily with fasting labs tomorrow. Reviewed risks and benefits, and patient has tolerated first 2 doses well. -Gather collateral information if able to identify any supports in the community. 12/06 -Patient reports that he feels that he is responding favorably to risperidone. He notes some difficulty with sedation, and, more specifically, says that he misses having as much energy has he had had prior to admission. However, he also agrees that his thinking has become more organized, he has become more calm, and he is now sleeping well. -We discussed with the patient the fact that he had responded favorably to a combination of risperidone and lithium carbonate in the past, and the patient said that he recalls taking lithium carbonate and does not recall any adverse effects. However, he seemed ambivalent about the question of adding a second psychiatric medication at this point. We recommended that he remain in the hospital so that we can restart lithium carbonate as a mood stabilizer. He accepts that he is having mood alterations and mood swings, and does endorse certain symptoms consistent with viviane in the recent past. However, he is not willing to remain hospitalized voluntarily, and we do not find at this time that he can be expected to continue to meet criteria for involuntary treatment following another 2 or 3 days of observation and medication adjustments as indicated. -The patient's request is that the decision to start lithium be made on an outpatient basis. He reports intent to be fully adherent with the outpatient medication and reiterates that the reason that he had the mental health hotline was in order to secure outpatient services. -Some of the patient's reports are contradictory, or seem somewhat unlikely. For example, he told me that he was always very close with his mother, and that she had in 2012 of amyotrophic lateral sclerosis. When I asked him if that might of had something to do with his psychiatric hospitalization, he responded by saying, "no, I do not think that my being in the hospital had anything to do with it. I then asked him if he had been with his mother when she , and he said that he had not. I asked him if he attended a or memorial service for his mother, and he said "I do not remember. I do not think so." He also told me that he had been close with his father who we reports within a year of his mother. He also said he could remember if he went to a memorial or service for his father, but he did say that he knows that his father of lung cancer. 12/07 -Increase risperidone to 2 mg twice daily, and continue as needed dose. Continue lithium, consolidate to 900 mg at bedtime for renal protection, and check trough level after 5 days (12/12/2019). -303 hearing scheduled for Tuesday. Attempt to get collateral information from his friend Willard, as this is the only support he can identify. -He will need outpatient care including psychiatry, therapy, and case management. Address on Tuesday. 12/08 -Social work attempting to contact his friend Willard for collateral information. 303 hearing tomorrow. -Continue current medication doses. Discussed option of switching risperidone to paliperidone, given patient's concern about side effects and also to allow an option of an ROBERT, but he was unwilling to do this. Previously responded to 6 mg daily of risperidone, so may need further dose titration. 12/09 -collateral information from friend indicates patient did well when in treatment in [id number], but decompensated over the next several years after he dropped out of treatment, with another acute decompensation over the past few months. -Patient is responding well to current medication and does not want to increase the doses further, in fact asking to decrease them, but would not recommend this given the fact that he symptoms are still not well controlled; continue them and check lithium level after 5 days. Discussed with him that after he is stable for approximately 6 months, he and his outpatient clinician could consider decreasing doses, but the doing so now would likely result in decompensation and longer hospitalization. -Refer for case management, outpatient psychiatry, and therapy. (2) Mood disorder: 12/05 -differential includes psychotic depression or bipolar disorder. Assessment limited as patient is a poor historian. Although he reports primary depressive symptoms, his affect is expansive, and this morning he was singing and dancing and is reporting good mood. Attempt to identify someone for collateral information as above, and continue to monitor and observe mood symptoms here. He had a good response to lithium when hospitalized here in 2011, so could consider a retrial of that medication. 12/06 -The addition of risperidone 1 mg twice a day seems to have stabilized the patient's mood to some degree. The clinical data so far would suggest that the patient may meet criteria for a rapid cycling bipolar disorder or, possibly, for schizoaffective disorder bipolar type. -The patient does endorse certain manic symptoms prior to admission, as well as yesterday. He feels that risperidone has assisted him in that regard and that he has noted that his mood seems more stable. He also reports that he feels that he is more often depressed than manic. When asked to talk about his initial statement that he is "the greatest kana in the world," he initially said that he was kidding and that he understands that that sounds grandiose, but he also was able to say that in the past he has sometimes felt that way. -The patient's thought content today is probably more consistent with depression. He was somewhat self depreciating and talked about the fact that he has had difficulty with various academic pursuits (he claims that within the past 8 years she has tried several colleges, including [employer] without success). 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 He externalizes responsibility for the fact that he lost both of these jobs, but says that he recognizes that at the age of 34 he should have a steady source of income and more friendsalthough he says that he currently has 2 fairly close friends that he can count on. 12/09 -Continue to explore ways to increase socialization and supports outside of the hospital, for example by attending religion or other activities. Risk Factors Assessment Male: Yes : Yes Do You Have Access To A Gun?: No (Patient said he is unable to own a gun as he has been involuntarily committed in the past.) Health Problems: Yes Mental Health Diagnoses: Yes Substance Use Disorders: No Previous Attempt: Yes Previous Psychiatric Hospitalization: Yes Smoker: No Protective Factors Assessment Mormon Beliefs: Yes : No Responsible for Young Children: No Employed: No Supportive Family: No Good Rapport with Provider: No Interval History Identifying Information BOBBY SRINIVASAN is a 34-year-old M who currently lives in [place] alone, has a history of schizophrenia, and was admitted on 12/06/19 01:24 on a 302 involuntary commitment for psychosis and SI with multiple plans. Chief Complaint "Really good, pretty good, okay". Review of Systems Sleep Information Total Hours of Sleep: 7.5 Sleep Comments: + 2.5hrs on evening shift Meal Information Percent Meal Consumed - Breakfast: 100 Percent Meal Consumed - Lunch: 100 Percent Meal Consumed - Dinner: 100 Subjective Subjective Patient was seen & assessed and interval progress reviewed with treatment team. Staff report he remains disorganized, requiring staff direction for some ADLs. He appeared to be responding to internal stimuli, had delayed answers to questions, and was observed staring blankly. He struggled to answer basic questions about his life, for example stated he had been to [place] times, then said he thinks it was actually his father that went to [place] 40 times. He appeared to be misinterpreting interactions with others, stating that appear was talking about shooting someone, while appears that he made a comment about gun violence. He approached staff multiple times with concerns, for example stating that he did not think patients should be watching programming about violence or adult situations, when there was a news report about baseball players using steroids. His friend, Willard, was contacted for collateral information and stated he is known the patient for 6 years, and that he did much better when he was in outpatient treatment, but in 2017 he decided to stop taking his medications and dropped out of treatment, and has declined since that time. He has no other family or supports, as he had an altercation with his stepfather and sister years ago and is now estranged from them, and his parents in 2012 and 2013. Over the past 6 months, the patient has been increasingly agitated, with racing thoughts, and delusions, stating that he was a "savior," becoming increasingly paranoid about his living situation, believing his landlord was spying on him, and expressing fears about where he lived. He described the patient's home as a house with a few bedrooms, with each 10 and having their own room, but sharing at living area, bathroom, and kitchen. The landlord lives upstairs. On my assessment, the patient states his mood is better this morning, although he slept poorly, woke multiple times, and felt easily distracted by other noises. He believed he could hear people talking in the room next-door and that this kept him awake. He is trying to stay active on the unit, playing piano, video games, watching TV, exercising, and talking to his peers. He continues to endorse paranoia, stating that he thought staff were angry at him or judging him because they would not say hello to him when they were doing checks last night. He continues to feel unsafe at times, but does not want to discuss his thoughts that other people on the unit might be the devil or might try to hurt others. He endorses feeling "stressed out" when he can hear other people talking, and says this causes him to "freak out." He says he worries he will "open my door, come in." He denies suicidal thoughts, and thinks it is helping him to be around other people and talk to them. He is able to suggest several ideas of how he might increase socialization outside of the h ospital. He reports mild nausea this morning, but is eating 100% of each meal plus snacks, and denies vomiting, diarrhea, and constipation. He reports feeling "tense where my spleen is, while I don't have a spleen," and wonders if this is due to medication. He does not want to consider a switch to a different antipsychotic, as he thinks that risperidone is working well, but would like the dose to be decreased. Reviewed that the goal right now is to control his psychotic symptoms, but that if he stabilizes, he will possibly be able to reduce his dose of medication in the future, and he expressed understanding. Discussed his history of noncompliance with treatment and he states this was due to "the stigma of it," and is now willing for outpatient treatment but wants "the nicest people." Reviewed his treatment plan and length of stay, and he expressed agreement with that and said he would not contest the 303 commitment. He also stated he did not want to attend his hearing. He does not believe he contacted his traffic law attorney, and thinks he lost the contact information. Physical Exam Psychiatric Orientation: alert and cooperative Apperance: appropriately dressed, appropriately groomed and appeared stated age Eye Contact: + fair eye contact Motor Behavior: steady gait and station and no abnormal motor movements Speech: normal rate/rhythm/volume of speech Slightly hyperverbal today Affect: + anxious affect Frequent inappropriate laughter "Really good, pretty good, okay." Disorganized Thought Content: + paranoid, + delusions and + persecution Suicidal Thoughts: denies suicidal thoughts But believes he may be at risk of danger from others Homicidal Thoughts: denies homicidal thoughts Hallucinations: + auditory hallucinations (Reports hearing voices of other people talking which distracts him and prevents sleep) Appears to be responding to unseen others, laughing inappropriately and without provocation Cognition: attention grossly intact and language grossly intact; + recent memory not intact and + remote memory not intact Estimated Intelligence: average estimated intelligence Insight: + fair insight Judgement: + fair judgement Vital Signs (Past 24 Hours) Last Vital Signs Temp 36.8 C 12/10/19 06:30 Pulse 91 H 12/10/19 06:31 Resp 18 12/10/19 06:30 BP 121/76 12/10/19 06:31 Pulse Ox 96 12/06/19 02:27 Results & Data ([facility]) Current Inpatient Medications Current Inpatient Medications: Current Inpatient Medications Acetaminophen (Tylenol) 650 mg PO Q4H PRN PRN Reason: Headache or Minor Fever Stop: 01/05/20 01:23 Al Hydrox/Mg Hydrox/Simethicone (Maalox) 30 ml PO Q4H PRN PRN Reason: GI Upset Stop: 01/05/20 01:23 Bismuth Subsalicylate (Kaopectate) 15 ml PO PRN PRN PRN Reason: Loose Stool Stop: 01/05/20 01:23 Hydroxyzine HCl (Vistaril) 50 mg PO HSZ PRN PRN Reason: Insomnia Stop: 01/05/20 01:23 Hydroxyzine HCl (Vistaril) 25 mg PO Q4H PRN PRN Reason: Anxiety Stop: 01/05/20 01:23 [place] Carbonate ([place] Carbonate) 900 mg PO HS MOUNIKA Stop: 01/08/20 21:59 Last Admin: 12/09/19 20:23 Dose: 900 mg Documented by: Lorazepam (Ativan) 0.5 mg PO Q6H PRN PRN Reason: Anxiety/Agitation Stop: 01/06/20 15:04 Last Admin: 12/07/19 15:20 Dose: 0.5 mg Documented by: Magnesium Hydroxide (Milk Of Magnesia) 30 ml PO DAILY PRN PRN Reason: Constipation Stop: 01/05/20 01:23 Risperidone (Risperdal) 1 mg PO Q6H PRN PRN Reason: viviaen/anxiety/agitation Stop: 01/06/20 15:02 Last Admin: 12/07/19 15:24 Dose: 1 mg Documented by: Risperidone (Risperdal M) 2 mg PO BID MOUNIKA Stop: 01/07/20 20:59 Last Admin: 12/09/19 20:22 Dose: 2 mg Documented by: Sodium Chloride ([place] Nasal) 1 - 2 sprays NA PRN PRN PRN Reason: Nasal Dryness/Congestion Stop: 01/05/20 01:23 Mental Health & Subst Abuse Tx Psychiatrist Name of Psychiatrist: [facility] Psychiatrist's Psychiatric Appointment Comment: [id number] [facility] Client Renewal Specialist Name of Client Renewal Specialist: [facility]SU Phone Number for Client Renewal Specialist: [phone] Case Management Appointment Comment: [address] [facility], [address] Post Discharge Appointments Primary Care Physician Name Of Family Doctor: Mee Verduzco Primary Care Provider Appointment Comment: [address] [place] [address] Contact Information Discharge Discharge Address: [address] [place] [address], [place] [address]
[2019-12-10] MEDS: RISPERIDONE ODT 1MG PO SCH ×2 (08:49→20:45)
[2019-12-10] MEDS: LITHIUM CARBONATE 300 MG TAB PO SCH (20:46)
[2019-12-11] MEDS: RISPERIDONE ODT 1MG PO SCH ×2 (09:07→20:56)
--- NOTE | 2019-12-11 11:38 | Psychiatric Progress Note ---
Date of Service December 11, 2019 Impression / Recommendations Impression The patient is a 34-year-old single male who has a history of psychosis NOS and mood disorder NOS, with multiple previous hospitalizations, but although he has had multiple visits to the emergency room for psychiatric complaints such as "depression," he has not been seen here on the inpatient unit for approximately 9 years and says he has not had any psychiatric treatment for the last several years. He presented initially with self-reports of suicidal ideation with various plans, including hanging, self poisoning, etc. Clinical findings at admission included mood alterations and psychotic symptoms. Within 24 hours he began to state that his mood was "great," and affect appeared expansive, with notably disorganized, pressured, and voluminous speech, suggestive of flight of ideas, but mood continues to vacillate with both depressive and manic symptoms. He remains psychotic, disorganized, with delusions of persecution and paranoia, and is very guarded and reluctant to discuss his perceptions. It was noted that he had been treated successfully with risperidone and lithium during hospitalization here at [facility] in 2011, and these medications have been resumed. He had been delusional and paranoid, looking for weapons and stating beliefs that terrorists were going to come on the unit and kill everyone. He continues to be paranoid and delusional, but has been demonstrating gradual improvement as his medications are being titrated. He is on a 303 involuntary commitment as of 12/10/2019. (1) Psychosis: 12/05 -continue hospitalization on 302, in a medically necessary private room due to psychosis. His 302 expires on Tuesday. Continue to gather information toward the need for further involuntary commitment. -Previously diagnosed with psychosis NOS, unknown what his outpatient diagnosis was, and has not been in treatment for years. Differential includes schizophrenia, schizoaffective disorder, and a psychotic mood disorder. -He agreed to resume risperidone as it was helpful in the past, and will start 1 mg twice daily with fasting labs tomorrow. Reviewed risks and benefits, and patient has tolerated first 2 doses well. -Gather collateral information if able to identify any supports in the community. 12/06 -Patient reports that he feels that he is responding favorably to risperidone. He notes some difficulty with sedation, and, more specifically, says that he misses having as much energy has he had had prior to admission. However, he also agrees that his thinking has become more organized, he has become more calm, and he is now sleeping well. -We discussed with the patient the fact that he had responded favorably to a combination of risperidone and lithium carbonate in the past, and the patient said that he recalls taking lithium carbonate and does not recall any adverse effects. However, he seemed ambivalent about the question of adding a second psychiatric medication at this point. We recommended that he remain in the hospital so that we can restart lithium carbonate as a mood stabilizer. He accepts that he is having mood alterations and mood swings, and does endorse certain symptoms consistent with viviane in the recent past. However, he is not willing to remain hospitalized voluntarily, and we do not find at this time that he can be expected to continue to meet criteria for involuntary treatment following another 2 or 3 days of observation and medication adjustments as indicated. -The patient's request is that the decision to start lithium be made on an outpatient basis. He reports intent to be fully adherent with the outpatient medication and reiterates that the reason that he had the mental health hotline was in order to secure outpatient services. -Some of the patient's reports are contradictory, or seem somewhat unlikely. For example, he told me that he was always very close with his mother, and that she had in 2012 of amyotrophic lateral sclerosis. When I asked him if that might of had something to do with his psychiatric hospitalization, he responded by saying, "no, I do not think that my being in the hospital had anything to do with it. I then asked him if he had been with his mother when she , and he said that he had not. I asked him if he attended a or memorial service for his mother, and he said "I do not remember. I do not think so." He also told me that he had been close with his father who we reports within a year of his mother. He also said he could remember if he went to a memorial or service for his father, but he did say that he knows that his father of lung cancer. 12/07 -Increase risperidone to 2 mg twice daily, and continue as needed dose. Continue lithium, consolidate to 900 mg at bedtime for renal protection, and check trough level after 5 days (12/12/2019). -303 hearing scheduled for Tuesday. Attempt to get collateral information from his friend Willard, as this is the only support he can identify. -He will need outpatient care including psychiatry, therapy, and case management. Address on Tuesday. 12/08 -Social work attempting to contact his friend Willard for collateral information. 303 hearing tomorrow. -Continue current medication doses. Discussed option of switching risperidone to paliperidone, given patient's concern about side effects and also to allow an option of an ROBERT, but he was unwilling to do this. Previously responded to 6 mg daily of risperidone, so may need further dose titration. 12/09 -collateral information from friend indicates patient did well when in treatment in [id number], but decompensated over the next several years after he dropped out of treatment, with another acute decompensation over the past few months. -Patient is responding well to current medication and does not want to increase the doses further, in fact asking to decrease them, but would not recommend this given the fact that he symptoms are still not well controlled; continue them and check lithium level after 5 days. Discussed with him that after he is stable for approximately 6 months, he and his outpatient clinician could consider decreasing doses, but the doing so now would likely result in decompensation and longer hospitalization. -Refer for case management, outpatient psychiatry, and therapy. 12/10 - Continues to demonstrate gradual improvement with current medication regimen, but has ongoing delusions and paranoia along with disorganized and tangential thoughts. Pt consented to titrating risperidone to 2mg qAM and 3mg qHS - continuing lithium at 900mg qHS with level to be drawn on 12/11. - Pt completed [facility] phone intake - hopeful to have assigned outpatient case manager meet with patient - Referred to [facility] for medication management, will require a therapist (2) Mood disorder: 12/05 -differential includes psychotic depression or bipolar disorder. Assessment limited as patient is a poor historian. Although he reports primary depressive symptoms, his affect is expansive, and this morning he was singing and dancing and is reporting good mood. Attempt to identify someone for collateral information as above, and continue to monitor and observe mood symptoms here. He had a good response to lithium when hospitalized here in 2011, so could consider a retrial of that medication. 12/06 -The addition of risperidone 1 mg twice a day seems to have stabilized the patient's mood to some degree. The clinical data so far would suggest that the patient may meet criteria for a rapid cycling bipolar disorder or, possibly, for schizoaffective disorder bipolar type. -The patient does endorse certain manic symptoms prior to admission, as well as yesterday. He feels that risperidone has assisted him in that regard and that ezra hale has noted that his mood seems more stable. He also reports that he feels that he is more often depressed than manic. When asked to talk about his initial statement that he is "the greatest kana in the world," he initially said that he was kidding and that he understands that that sounds grandiose, but he also was able to say that in the past he has sometimes felt that way. -The patient's thought content today is probably more consistent with depression. He was somewhat self depreciating and talked about the fact that he has had difficulty with various academic pursuits (he claims that within the past 8 years she has tried several colleges, including [employer] without success). 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 He externalizes responsibility for the fact that he lost both of these jobs, but says that he recognizes that at the age of 34 he should have a steady source of income and more friendsalthough he says that he currently has 2 fairly close friends that he can count on. 12/09 -Continue to explore ways to increase socialization and supports outside of the hospital, for example by attending mandaen or other activities. Risk Factors Assessment Male: Yes : Yes Do You Have Access To A Gun?: No (Patient said he is unable to own a gun as he has been involuntarily committed in the past.) Health Problems: Yes Mental Health Diagnoses: Yes Substance Use Disorders: No Previous Attempt: Yes Previous Psychiatric Hospitalization: Yes Smoker: No Protective Factors Assessment Anabaptism Beliefs: Yes : No Responsible for Young Children: No Employed: No Supportive Family: No Good Rapport with Provider: No Interval History Identifying Information BOBBY SRINIVASAN is a 34-year-old M who currently lives in [place] alone, has a history of schizophrenia, and was admitted on 12/06/19 01:24 on a 302 involuntary commitment for psychosis and SI with multiple plans. Chief Complaint "Today is the first day I've been more absent-minded." Review of Systems Notes Constitutional: denied Cardiovascular: denied Respiratory: denied Gastrointestinal: denied Neurological: denied Psychiatric: denies symptoms other than stated above Total of at least 10 systems reviewed, pertinent positives as above and in HPI. Sleep Information Total Hours of Sleep: 7.25 Sleep Comments: pt on q-15 minute checks Meal Information Percent Meal Consumed - Breakfast: 100 Percent Meal Consumed - Lunch: 100 Percent Meal Consumed - Dinner: 100 Subjective Subjective Patient was seen & assessed and interval progress reviewed with nursing and social work. Staff report the patient had some difficulty last evening and processed various concerns with staff (asking if someone had as he felt "low vibrations"). He was also reportedly paranoid when a new patient was escorted onto the unit by security. Pt did complete his initial phone [facility]. Pt was seen today to assess progress since admission. Pt was initially asked how he was feeling, and stated "I'm thinking 'feel' is a trigger now that I think about it." When asked to elaborate on this thought, the patient was unable to provide a response that could be rationally interpreted by this provider. Instead, he was asked what improvements he has noticed over the course of his admission. Pt states "Today is the first day I've been more absent-minded." Pt does believe this may be a positive thing, though describes it as "blah" and "like I don't have to worry about other people as much, but I still worry about them." Pt reports that he is sleeping decently on the unit, but does not feel he is eating enough food. Pt claims he has lost ~8lbs in the past 6 days - though it is not clear from documentation that there was an indication to weigh patient since admission. Pt reports continued anxiety related to "new people" on the unit, as "they're strangers, they do drugs, and they have security with them. One kana was in the so I don't know how many people he has killed, but he probably has killed people. And this is a psych ndiaye, so who knows if some of them are crazy." Pt was encouraged to take time to get to know the other patients as he feels comfortable, as our initial judgements are not always consistent with the truth. Pt interjected with random comments or topics at several points during our conversation. Once spontaneously laughing uncontrollably as "your mask. It reminds me, well...I shouldn't say what it reminds me of. I just think of Cobra from Lorrie Rosales." At one point he also interjected with "in school, I used to get a 104 and thought I failed." When asked where this particular thought came from, the patient states "I'm just reading your body language. I would imagine from reading you that you're right-hand dominant so when you look to the top right you are thinking about your thoughts about me, and when you look to the bottom right you are thinking about your emotions. The left side is objective, so not important for this conversation. I don't know, it just made me think about feeling like I was failing in school." Pt denied any suicidal or homicidal thoughts at this time. He denied other needs or concerns presently. Physical Exam Psychiatric Orientation: alert, oriented x 3 and + guarded (superficially cooperative) Apperance: appropriately dressed (casually, wearing a polo shirt and scrub pants), appropriately groomed and appeared stated age Eye Contact: + fair eye contact Motor Behavior: + psychomotor agitation (appearing restless and somewhat anxious/uncomfortable) Speech: normal rate/rhythm/volume of speech Affect: + anxious affect and + constricted affect Mood: + anxious mood ("I'm still worrying about other people, but not as much") Thought Process: + thought blocking, + tangential thought process, + looseness of associations and + perseveration Thought Content: + paranoid, + delusions and + persecution Suicidal Thoughts: denies suicidal thoughts Homicidal Thoughts: denies homicidal thoughts Cognition: attention grossly intact and language grossly intact Insight: + impaired insight Judgement: + impaired judgement Vital Signs (Past 24 Hours) Last Vital Signs Temp 36.7 C 12/11/19 06:36 Pulse 82 12/11/19 06:36 Resp 18 12/11/19 06:36 BP 101/65 12/11/19 06:36 Pulse Ox 96 12/06/19 02:27 Results & Data ([facility]) Current Inpatient Medications Current Inpatient Medications: Current Inpatient Medications Acetaminophen (Tylenol) 650 mg PO Q4H PRN PRN Reason: Headache or Minor Fever Stop: 01/05/20 01:23 Al Hydrox/Mg Hydrox/Simethicone (Maalox) 30 ml PO Q4H PRN PRN Reason: GI Upset Stop: 01/05/20 01:23 Bismuth Subsalicylate (Kaopectate) 15 ml PO PRN PRN PRN Reason: Loose Stool Stop: 01/05/20 01:23 Hydroxyzine HCl (Vistaril) 50 mg PO HSZ PRN PRN Reason: Insomnia Stop: 01/05/20 01:23 Hydroxyzine HCl (Vistaril) 25 mg PO Q4H PRN PRN Reason: Anxiety Stop: 01/05/20 01:23 [place] Carbonate ([place] Carbonate) 900 mg PO HS MOUNIKA Stop: 01/08/20 21:59 Last Admin: 12/10/19 20:46 Dose: 900 mg Documented by: Lorazepam (Ativan) 0.5 mg PO Q6H PRN PRN Reason: Anxiety/Agitation Stop: 01/06/20 15:04 Last Admin: 12/07/19 15:20 Dose: 0.5 mg Documented by: Magnesium Hydroxide (Milk Of Magnesia) 30 ml PO DAILY PRN PRN Reason: Constipation Stop: 01/05/20 01:23 Risperidone (Risperdal) 1 mg PO Q6H PRN PRN Reason: viviane/anxiety/agitation Stop: 01/06/20 15:02 Last Admin: 12/07/19 15:24 Dose: 1 mg Documented by: Risperidone (Risperdal M) 2 mg PO BID MOUNIKA Stop: 01/07/20 20:59 Last Admin: 12/11/19 09:07 Dose: 2 mg Documented by: Sodium Chloride (P[place]is Nasal) 1 - 2 sprays NA PRN PRN PRN Reason: Nasal Dryness/Congestion Stop: 01/05/20 01:23 Mental Health & Subst Abuse Tx Psychiatrist Name of Psychiatrist: Toshia Salazar [facility] Psychiatrist's Date of Appointment with Psychiatrist: 01/10/20 Time of Appointment with Psychiatrist: 8:20am Psychiatric Appointment Comment: [address] [facility] Receiving Tank Operator Name of Receiving Tank Operator: U Phone Number for Receiving Tank Operator: [phone] Case Management Appointment Comment: [address] [facility], [address], [place] Post Discharge Appointments Primary Care Physician Name Of Family Doctor: Mee Verduzco Primary Care Provider Appointment Comment: Karthik Cruz, ZACHERY Hernandez [phone] Contact Information Discharge Discharge Address: [address] [place] [address], [place] [address]
[2019-12-11] MEDS: LITHIUM CARBONATE 300 MG TAB PO SCH (20:56)
[2019-12-12] MEDS: RISPERIDONE ODT 1MG PO SCH ×2 (09:56→20:23)
--- NOTE | 2019-12-12 13:32 | Psychiatric Progress Note ---
Date of Service December 12, 2019 Impression / Recommendations Impression The patient is a 34-year-old single male who has a history of psychosis NOS and mood disorder NOS, with multiple previous hospitalizations, but although he has had multiple visits to the emergency room for psychiatric complaints such as "depression," he has not been seen here on the inpatient unit for approximately 9 years and says he has not had any psychiatric treatment for the last several years. He presented initially with self-reports of suicidal ideation with various plans, including hanging, self poisoning, etc. Clinical findings at admission included mood alterations and psychotic symptoms. Within 24 hours he began to state that his mood was "great," and affect appeared expansive, with notably disorganized, pressured, and voluminous speech, suggestive of flight of ideas, but mood continues to vacillate with both depressive and manic symptoms. He remains psychotic, disorganized, with delusions of persecution and paranoia, and is very guarded and reluctant to discuss his perceptions. It was noted that he had been treated successfully with risperidone and lithium during hospitalization here at [facility] in 2011, and these medications have been resumed. He had been delusional and paranoid, looking for weapons and stating beliefs that terrorists were going to come on the unit and kill everyone. He continues to be paranoid and delusional, but has been demonstrating gradual improvement as his medications are being titrated. He is on a 303 involuntary commitment as of 12/10/2019. (1) Psychosis: 12/05 -continue hospitalization on 302, in a medically necessary private room due to psychosis. His 302 expires on Tuesday. Continue to gather information toward the need for further involuntary commitment. -Previously diagnosed with psychosis NOS, unknown what his outpatient diagnosis was, and has not been in treatment for years. Differential includes schizophrenia, schizoaffective disorder, and a psychotic mood disorder. -He agreed to resume risperidone as it was helpful in the past, and will start 1 mg twice daily with fasting labs tomorrow. Reviewed risks and benefits, and patient has tolerated first 2 doses well. -Gather collateral information if able to identify any supports in the community. 12/06 -Patient reports that he feels that he is responding favorably to risperidone. He notes some difficulty with sedation, and, more specifically, says that he misses having as much energy has he had had prior to admission. However, he also agrees that his thinking has become more organized, he has become more calm, and he is now sleeping well. -We discussed with the patient the fact that he had responded favorably to a combination of risperidone and lithium carbonate in the past, and the patient said that he recalls taking lithium carbonate and does not recall any adverse effects. However, he seemed ambivalent about the question of adding a second psychiatric medication at this point. We recommended that he remain in the hospital so that we can restart lithium carbonate as a mood stabilizer. He accepts that he is having mood alterations and mood swings, and does endorse certain symptoms consistent with viviane in the recent past. However, he is not willing to remain hospitalized voluntarily, and we do not find at this time that he can be expected to continue to meet criteria for involuntary treatment following another 2 or 3 days of observation and medication adjustments as indicated. -The patient's request is that the decision to start lithium be made on an outpatient basis. He reports intent to be fully adherent with the outpatient medication and reiterates that the reason that he had the mental health hotline was in order to secure outpatient services. -Some of the patient's reports are contradictory, or seem somewhat unlikely. For example, he told me that he was always very close with his mother, and that she had in 2012 of amyotrophic lateral sclerosis. When I asked him if that might of had something to do with his psychiatric hospitalization, he responded by saying, "no, I do not think that my being in the hospital had anything to do with it. I then asked him if he had been with his mother when she , and he said that he had not. I asked him if he attended a or memorial service for his mother, and he said "I do not remember. I do not think so." He also told me that he had been close with his father who we reports within a year of his mother. He also said he could remember if he went to a memorial or service for his father, but he did say that he knows that his father of lung cancer. 12/07 -Increase risperidone to 2 mg twice daily, and continue as needed dose. Continue lithium, consolidate to 900 mg at bedtime for renal protection, and check trough level after 5 days (12/12/2019). -303 hearing scheduled for Tuesday. Attempt to get collateral information from his friend Willard, as this is the only support he can identify. -He will need outpatient care including psychiatry, therapy, and case management. Address on Tuesday. 12/08 -Social work attempting to contact his friend Willard for collateral information. 303 hearing tomorrow. -Continue current medication doses. Discussed option of switching risperidone to paliperidone, given patient's concern about side effects and also to allow an option of an ROBERT, but he was unwilling to do this. Previously responded to 6 mg daily of risperidone, so may need further dose titration. 12/09 -collateral information from friend indicates patient did well when in treatment in [id number], but decompensated over the next several years after he dropped out of treatment, with another acute decompensation over the past few months. -Patient is responding well to current medication and does not want to increase the doses further, in fact asking to decrease them, but would not recommend this given the fact that he symptoms are still not well controlled; continue them and check lithium level after 5 days. Discussed with him that after he is stable for approximately 6 months, he and his outpatient clinician could consider decreasing doses, but the doing so now would likely result in decompensation and longer hospitalization. -Refer for case management, outpatient psychiatry, and therapy. 12/10 - Continues to demonstrate gradual improvement with current medication regimen, but has ongoing delusions and paranoia along with disorganized and tangential thoughts. Pt consented to titrating risperidone to 2mg qAM and 3mg qHS - continuing lithium at 900mg qHS with level to be drawn on 12/11. - Pt completed [facility] phone intake - hopeful to have assigned pillowcase folder meet with patient - Referred to [place] for medication management, will require a therapist 12/11 - Continue risperidone 2mg qAM and 3mg qHS, can consider further titration as indicated/tolerated - Pt did engage in somewhat organized conversation about cross-titration to paliperidone with option to start an ROBERT. He seemed very intrigued by this and requested additional information, but was not yet comfortable consenting to the switch. - Cordele level drawn today - subtherapeutic at 0.5. Will increase lithium to 300mg qAM and 900mg qHS after discussion of risks, benefits, and dosing options with patient - Continue to encourage group participation as appropriate - Meeting with assigned pillowcase folder this afternoon - Maintain private room due to continued delusions/paranoia - staff reports ongoing thought disorganization, paranoia, and occasional bizarre statements; although patient denies any of this at this time (2) Mood disorder: 12/05 -differential includes psychotic depression or bipolar disorder. Assessment limited as patient is a poor historian. Although he reports primary depressive symptoms, his affect is expansive, and this morning he was singing and dancing and is reporting good mood. Attempt to identify someone for collateral information as above, and continue to monitor and observe mood symptoms here. He had a good response to lithium when hospitalized here in 2011, so could consider a retrial of that medication. 12/06 -The addition of risperidone 1 mg twice a day seems to have stabilized the patient's mood to some degree. The clinical data so far would suggest that the patient may meet criteria for a rapid cycling bipolar disorder or, possibly, for schizoaffective disorder bipolar type. -The patient does endorse certain manic symptoms prior to admission, as well as yesterday. He feels that risperidone has assisted him in that regard and that he has noted that his mood seems more stable. He also reports that he feels that he is more often depressed than manic. When asked to talk about his initial statement that he is "the greatest kana in the world," he initially said that he was kidding and that he understands that that sounds grandiose, but he also was able to say that in the past he has sometimes felt that way. -The patient's thought content today is probably more consistent with depression. He was somewhat self depreciating and talked about the fact that he has had difficulty with various academic pursuits (he claims that within the past 8 years she has tried several colleges, including [employer] without success). 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 He externalizes responsibility for the fact that he lost both of these jobs, but says that he recognizes that at the age of 34 he should have a steady source of income and more friendsalthough he says that he currently has 2 fairly close friends that he can count on. 12/09 -Continue to explore ways to increase socialization and supports outside of the hospital, for example by attending [facility] or other activities. 12/11 - Continue as above Risk Factors Assessment Male: Yes : Yes Do You Have Access To A Gun?: No (Patient said he is unable to own a gun as he has been involuntarily committed in the past.) Health Problems: Yes Mental Health Diagnoses: Yes Substance Use Disorders: No Previous Attempt: Yes Previous Psychiatric Hospitalization: Yes Smoker: No Protective Factors Assessment [employer] Beliefs: Yes : No Responsible for Young Children: No Employed: No Supportive Family: No Good Rapport with Provider: No Interval History Identifying Information BOBBY SRINIVASAN is a 34-year-old M who currently lives in [place] alone, has a history of schizophrenia, and was admitted on 12/06/19 01:24 on a 302 involuntary commitment for psychosis and SI with multiple plans. Chief Complaint "Pretty good." Review of Systems Notes Constitutional: denied Cardiovascular: denied Respiratory: denied Gastrointestinal: denied Neurological: denied Psychiatric: denies symptoms other than stated above Total of at least 10 systems reviewed, pertinent positives as above and in HPI. Sleep Information Total Hours of Sleep: 7 Sleep Comments: pt on q-15 minute checks Meal Information Percent Meal Consumed - Breakfast: 100 Percent Meal Consumed - Lunch: 100 Percent Meal Consumed - Dinner: 100 Subjective Subjective Patient was seen & assessed and interval progress reviewed with treatment team. Staff report the patient continues to have intermittent thought blocking and verbalizing paranoid/delusional statements at times. Pt did rate his mood a 7/10 and "peaceful" last evening. It was reported that his level of distress appeared reduced after he was returned to a private room. Pt was seen today to assess progress since admission. Pt states he is "pretty good" today and denies concerns, and describes himself as "pretty happy." This provider asked about the presence of any fearful or paranoid thoughts. He had difficulty with this questions, repeatedly asking what it meant or requesting it be re-phrased. Pt denies any issues with his thoughts today, despite multiple staff reports that the patient has continued to be paranoid/delusional and continues to make bizarre statements. When asked specifically about his mood, the patient he sitates and describes his mood as "normal I guess", but then reports "I guess if I really want to know, I would just look in the mirror." When asked how this has been helpful for him, he states "so I can see myself from an outside perspective, I don't know." Pt did appear frequently flustered and confused during our conversation, requiring for simple questions to be repeated or re- phrased. When asked about the presence of suicidal and homicidal thoughts, the patient admits "I don't like that you ask me that." This provider apologized, but reminded patient of statement he had made earlier in his admission about wanting to end his life. Pt recalled this, but stated the thoughts are no longer present, and "I don't want you to ask that anymore." Pt did engage in a somewhat organized conversation about potential medication adjustments, which started with his subtherapeutic lithium level and recommendation to increase the medication. Pt agreed to an additional 300mg morning dose. We also discussed potential to convert medications to allow for initiation of an ROBERT. Pt did admit he was intrigued by this idea with tolerated further discussion. He did admit to hesitation to change medications as "I'm really concerned about the risk for long-term diseases, like things that could happen to me 2 and 4 and 6 and 8 years from now." We did review need for regular monitoring of fasting labs and other potential side effects, but that paliperidone is rather similar to risperidone in this regard. Pt shares his somewhat disorganized understanding of the influence of various neurotransmitters in his brain, and hope that one day there will be an injection that "just makes your brain go back to normal." Pt does admit to desire to learn more about paliperidone, but is not yet comfortable switching medications. Pt requests a handout on paliperidone, which was provided to him. Otherwise, he denies additional needs or concerns today. Physical Exam Psychiatric Orientation: alert, oriented x 3 and + guarded (superficially cooperative) Apperance: appropriately dressed (casually, in sweater and scrub pants), appropriately groomed and appeared stated age Eye Contact: + fair eye contact (distracted, eye contact darting around surroundings) Motor Behavior: no abnormal motor movements and + psychomotor agitation (pacing, appearing somewhat restless) Speech: normal rate/rhythm/volume of speech (some delay in response) often repeating ending phrases of questions before answering Affect: + anxious affect and + constricted affect Mood: no depressed mood ("pretty good" and "pretty happy") and no anxious mood Thought Process: + thought blocking and + tangential thought process Thought Content: + paranoid (based on reports from staff, though patient denies) and + cognitive distortions (versus delusions); no hopelessness Suicidal Thoughts: denies suicidal thoughts and denies suicidal intent Homicidal Thoughts: denies homicidal thoughts Hallucinations: no auditory hallucinations and no visual hallucinations Cognition: attention grossly intact and language grossly intact Estimated Intelligence: consistent with education level Insight: + impaired insight Judgement: + impaired judgement Vital Signs (Past 24 Hours) Last Vital Signs Temp 36.7 C 12/12/19 06:25 Pulse 87 12/12/19 06:26 Resp 18 12/12/19 06:25 BP 109/69 12/12/19 06:26 Pulse Ox 96 12/06/19 02:27 [facility] Laboratory Results Laboratory Results - last 24 hr 12/12/19 08:34 Cordele 0.5 L Current Inpatient Medications Current Inpatient Medications: Current Inpatient Medications Acetaminophen (Tylenol) 650 mg PO Q4H PRN PRN Reason: Headache or Minor Fever Stop: 01/05/20 01:23 Al Hydrox/Mg Hydrox/Simethicone (Maalox) 30 ml PO Q4H PRN PRN Reason: GI Upset Stop: 01/05/20 01:23 Bismuth Subsalicylate (Kaopectate) 15 ml PO PRN PRN PRN Reason: Loose Stool Stop: 01/05/20 01:23 Hydroxyzine HCl (Vistaril) 50 mg PO HSZ PRN PRN Reason: Insomnia Stop: 01/05/20 01:23 Hydroxyzine HCl (Vistaril) 25 mg PO Q4H PRN PRN Reason: Anxiety Stop: 01/05/20 01:23 Cordele Carbonate ([place] Carbonate) 900 mg PO HS MOUNIKA Stop: 01/08/20 21:59 Last Admin: 12/11/19 20:56 Dose: 900 mg Documented by: Lorazepam (Ativan) 0.5 mg PO Q6H PRN PRN Reason: Anxiety/Agitation Stop: 01/06/20 15:04 Last Admin: 12/07/19 15:20 Dose: 0.5 mg Documented by: Magnesium Hydroxide (Milk Of Magnesia) 30 ml PO DAILY PRN PRN Reason: Constipation Stop: 01/05/20 01:23 Risperidone (Risperdal) 1 mg PO Q6H PRN PRN Reason: viviane/anxiety/agitation Stop: 01/06/20 15:02 Last Admin: 12/07/19 15:24 Dose: 1 mg Documented by: Risperidone (Risperdal M) 2 mg PO QAM MOUNIKA Stop: 01/11/20 08:59 Last Admin: 12/12/19 09:56 Dose: 2 mg Documented by: Risperidone (Risperdal M) 3 mg PO HS MOUNIKA Stop: 01/10/20 21:59 Last Admin: 12/11/19 20:56 Dose: 3 mg Documented by: Sodium Chloride ([place] Nasal) 1 - 2 sprays NA PRN PRN PRN Reason: Nasal Dryness/Congestion Stop: 01/05/20 01:23 Mental Health & Subst Abuse Tx Psychiatrist Name of Psychiatrist: Toshia Singleton Psychiatrist's Date of Appointment with Psychiatrist: 01/10/20 Time of Appointment with Psychiatrist: 8:20 am Psychiatric Appointment Comment: [address] [facility] Therapist Name of Therapist: [facility] Therapist's Therapy Appointment Comment: [address] [facility], [facility] [address] Skin Installer Name of Skin Installer: PRASAD Celeste Phone Number for Skin Installer: [phone] Case Management Appointment Comment: [address] [facility], [facility] [address] Post Discharge Appointments Primary Care Physician Name Of Family Doctor: Mee Verduzco Primary Care Provider Appointment Comment: [address] [facility] [place] [address] Contact Information Discharge Discharge Address: [address] [place] [address], [place] [address]
[2019-12-12] MEDS: LITHIUM CARBONATE 300 MG TAB PO SCH (20:22)
[2019-12-13] MEDS ORDERED: LITHIUM CARBONATE 300 MG TAB PO SCH (09:00)
[2019-12-13] MEDS: RISPERIDONE ODT 1MG PO SCH (09:02)
--- NOTE | 2019-12-13 09:52 | Psychiatric Progress Note ---
Date of Service December 13, 2019 Impression / Recommendations Impression The patient is a 34-year-old single male who has a history of psychosis NOS and mood disorder NOS, with multiple previous hospitalizations, but although he has had multiple visits to the emergency room for psychiatric complaints such as "depression," he has not been seen here on the inpatient unit for approximately 9 years and says he has not had any psychiatric treatment for the last several years. He presented initially with self-reports of suicidal ideation with various plans, including hanging, self poisoning, etc. Clinical findings at admission included mood alterations and psychotic symptoms. Within 24 hours he began to state that his mood was "great," and affect appeared expansive, with notably disorganized, pressured, and voluminous speech, suggestive of flight of ideas, but mood continues to vacillate with both depressive and manic symptoms. He remains psychotic, disorganized, with delusions of persecution and paranoia, and is guarded and reluctant to discuss his perceptions. It was noted that he had been treated successfully with risperidone and lithium during hospitalization here at [facility] in 2011, and these medications have been resumed. He remains delusional and paranoid, disorganized, and easily overwhelmed by external stimuli, but is reporting improvements in mood and denying SI. He is on a 303 involuntary commitment as of 12/10/2019. We are recommending a trial of Invega with transition to Invega Sustenna, but he is still considering it. Inpatient treatment is medically necessary due to the severity of his symptoms and risk for harm to himself if discharged prematurely. (1) Psychosis: 12/05 -continue hospitalization on 302, in a medically necessary private room due to psychosis. His 302 expires on Tuesday. Continue to gather information toward the need for further involuntary commitment. -Previously diagnosed with psychosis NOS, unknown what his outpatient diagnosis was, and has not been in treatment for years. Differential includes schizophrenia, schizoaffective disorder, and a psychotic mood disorder. -He agreed to resume risperidone as it was helpful in the past, and will start 1 mg twice daily with fasting labs tomorrow. Reviewed risks and benefits, and patient has tolerated first 2 doses well. -Gather collateral information if able to identify any supports in the community. 12/06 -Patient reports that he feels that he is responding favorably to risperidone. He notes some difficulty with sedation, and, more specifically, says that he misses having as much energy has he had had prior to admission. However, he also agrees that his thinking has become more organized, he has become more calm, and he is now sleeping well. -We discussed with the patient the fact that he had responded favorably to a combination of risperidone and lithium carbonate in the past, and the patient said that he recalls taking lithium carbonate and does not recall any adverse effects. However, he seemed ambivalent about the question of adding a second psychiatric medication at this point. We recommended that he remain in the hospital so that we can restart lithium carbonate as a mood stabilizer. He accepts that he is having mood alterations and mood swings, and does endorse certain symptoms consistent with viviane in the recent past. However, he is not willing to remain hospitalized voluntarily, and we do not find at this time that he can be expected to continue to meet criteria for involuntary treatment following another 2 or 3 days of observation and medication adjustments as shalonda cated. -The patient's request is that the decision to start lithium be made on an outpatient basis. He reports intent to be fully adherent with the outpatient medication and reiterates that the reason that he had the mental health hotline was in order to secure outpatient services. -Some of the patient's reports are contradictory, or seem somewhat unlikely. For example, he told me that he was always very close with his mother, and that she had in 2012 of amyotrophic lateral sclerosis. When I asked him if that might of had something to do with his psychiatric hospitalization, he responded by saying, "no, I do not think that my being in the hospital had anything to do with it. I then asked him if he had been with his mother when she , and he said that he had not. I asked him if he attended a or memorial service for his mother, and he said "I do not remember. I do not think so." He also told me that he had been close with his father who we reports within a year of his mother. He also said he could remember if he went to a memorial or service for his father, but he did say that he knows that his father of lung cancer. 12/07 -Increase risperidone to 2 mg twice daily, and continue as needed dose. Continue lithium, consolidate to 900 mg at bedtime for renal protection, and check trough level after 5 days (12/12/2019). -303 hearing scheduled for Tuesday. Attempt to get collateral information from his friend Willard, as this is the only support he can identify. -He will need outpatient care including psychiatry, therapy, and case management. Address on Tuesday. 12/08 -Social work attempting to contact his friend Willard for collateral information. 303 hearing tomorrow. -Continue current medication doses. Discussed option of switching risperidone to paliperidone, given patient's concern about side effects and also to allow an option of an ROBERT, but he was unwilling to do this. Previously responded to 6 mg daily of risperidone, so may need further dose titration. 12/09 -collateral information from friend indicates patient did well when in treatment in [id number], but decompensated over the next several years after he dropped out of treatment, with another acute decompensation over the past few months. -Patient is responding well to current medication and does not want to increase the doses further, in fact asking to decrease them, but would not recommend this given the fact that he symptoms are still not well controlled; continue them and check lithium level after 5 days. Discussed with him that after he is stable for approximately 6 months, he and his outpatient clinician could consider decreasing doses, but the doing so now would likely result in decompensation and longer hospitalization. -Refer for case management, outpatient psychiatry, and therapy. 12/10 - Continues to demonstrate gradual improvement with current medication regimen, but has ongoing delusions and paranoia along with disorganized and tangential thoughts. Pt consented to titrating risperidone to 2mg qAM and 3mg qHS - continuing lithium at 900mg qHS with level to be drawn on 12/11. - Pt completed [facility] phone intake - hopeful to have assigned egg caser meet with patient - Referred to [facility] for medication management, will require a therapist 12/11 - Continue risperidone 2mg qAM and 3mg qHS, can consider further titration as indicated/tolerated - Pt did engage in somewhat organized conversation about cross-titration to paliperidone with option to start an ROBERT. He seemed very intrigued by this and requested additional information, but was not yet comfortable consenting to the switch. - [place] level drawn today - subtherapeutic at 0.5. Will increase lithium to 300mg qAM and 900mg qHS after discussion of risks, benefits, and dosing options with patient - Continue to encourage group participation as appropriate - Meeting with assigned egg caser this afternoon - Maintain private room due to continued delusions/paranoia - staff reports ongoing thought disorganization, paranoia, and occasional bizarre statements; although patient denies any of this at this time 12/12 -Reviewed Invega, Invega Sustenna, and risperidone in detail with patient, provided up-to-date patient handouts on the medications, and answered his questions. We are recommending a trial of Invega due to the more favorable side effect profile and the option of an ROBERT. He has some difficulty manipulating information, and says he would like to think about it some more before making a decision. If he does agree to Invega, we will need to check with his insurance regarding the need for a PA. -Continue increase lithium dose and consolidate to bedtime for renal protection; repeat trough level due 12/18/2019. (2) Mood disorder: 12/05 -differential includes psychotic depression or bipolar disorder. Assessment limited as patient is a poor historian. Although he reports primary depressive symptoms, his affect is expansive, and this morning he was singing and dancing and is reporting good mood. Attempt to identify someone for collateral information as above, and continue to monitor and observe mood sympt oms here. He had a good response to lithium when hospitalized here in 2011, so could consider a retrial of that medication. 12/06 -The addition of risperidone 1 mg twice a day seems to have stabilized the patient's mood to some degree. The clinical data so far would suggest that the patient may meet criteria for a rapid cycling bipolar disorder or, possibly, for schizoaffective disorder bipolar type. -The patient does endorse certain manic symptoms prior to admission, as well as yesterday. He feels that risperidone has assisted him in that regard and that he has noted that his mood seems more stable. He also reports that he feels that he is more often depressed than manic. When asked to talk about his initial statement that he is "the greatest kana in the world," he initially said that he was kidding and that he understands that that sounds grandiose, but he also was able to say that in the past he has sometimes felt that way. -The patient's thought content today is probably more consistent with depression. He was somewhat self depreciating and talked about the fact that he has had difficulty with various academic pursuits (he claims that within the past 8 years she has tried several colleges, including [employer] without success). 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 He externalizes responsibility for the fact that he lost both of these jobs, but says that he recognizes that at the age of 34 he should have a steady source of income and more friendsalthough he says that he currently has 2 fairly close friends that he can count on. 12/09 -Continue to explore ways to increase socialization and supports outside of the hospital, for example by attending anabaptism or other activities. 12/11 - Continue as above Risk Factors Assessment Male: Yes : Yes Do You Have Access To A Gun?: No (Patient said he is unable to own a gun as he has been involuntarily committed in the past.) Health Problems: Yes Mental Health Diagnoses: Yes Substance Use Disorders: No Previous Attempt: Yes Previous Psychiatric Hospitalization: Yes Smoker: No Protective Factors Assessment Christianity Beliefs: Yes : No Responsible for Young Children: No Employed: No Supportive Family: No Good Rapport with Provider: No Interval History Identifying Information BOBBY SRINIVASAN is a 34-year-old M who currently lives in [place] alone, has a history of schizophrenia, and was admitted on 12/06/19 01:24 on a 302 involuntary commitment for psychosis and SI with multiple plans. He is on a 303 involuntary commitment as of 12/10/2019. Chief Complaint " Good, I don't know". Review of Systems Sleep Information Total Hours of Sleep: 5.5 Sleep Comments: pt on q-15 minute checks Meal Information Percent Meal Consumed - Breakfast: 75 Percent Meal Consumed - Lunch: 100 Percent Meal Consumed - Dinner: 100 Subjective Subjective Patient was seen & assessed and interval progress reviewed with nursing and social work. Staff report he continues to be confused in his interactions with staff, does not want to discuss delusions of persecution and paranoia, but reported feeling more safe on the unit yesterday and was better able to tolerate interactions with peers. He attended groups but was disorganized with thought blocking and restricted affect. He met with Lis from the [facility] to complete his case management intake. He is taking medications as prescribed, and lithium trough level was 0.5 yesterday, so lithium was increased to 1200 mg daily in divided dosing. He discussed the option of a trial of Invega with transition to Invega Sustenna, but wanted to think about it. On my assessment, he states he is feeling better and describes his mood as "good, normal." He perseverates on being asked to give a feeling word in community meeting, stating "it's kind of a joke, you could say white, and then you talk about that for 20 minutes." He comes back to this topic later saying "jorje confusing to be in here with a 23-year-old man asking for feeling words." He thinks his thoughts are improving and are less jumbled, but has difficulty understanding some of the questions, for example when asked what he feels he needs to work on here, says "you mean designing a curriculum?" Clarified the question, and he then says that his primary goal is "acclimating here." He is able to list multiple coping strategies that are helpful for him, including exercise, playing video games, talking to people. He references "hearing people talking in the background," which is distracting, but denies hallucinations and thinks he was actually hearing people talking elsewhere on the unit. He feels he is ready for discharge, stating he wants to be able to "go outside and get some sun," and also plans to get in touch with some of his friends and start going to anabaptism. He says he read some of the information he was given yesterday on Invega, but wants to read printed information about Risperdal before making a decision. Provided him with an up-to-date patient handout on the medication, and answered all of his questions about side effects and the differences between the 2 medications. Offered a trial of Invega orally, or direct transition to Invega Sustenna. He appeared overwhelmed by the information about the medications, and was ultimately unable to make a decision, saying he needed to think about it some more. Physical Exam Psychiatric Orientation: alert and cooperative Apperance: appropriately dressed, appropriately groomed and appeared stated age Wearing the same clothes since admission, scrub pants and T-shirt. Unshaven facial hair. Adequate hygiene. Eye Contact: + poor eye contact Only brief, limited eye contact. Motor Behavior: steady gait and station and no abnormal motor movements Halting, monotone, soft. Affect: + anxious affect and + blunted affect; + mood not congruent with affect "Good, normal." Thought Process: goal directed thought process Thought Content: + delusions Thought blocking Suicidal Thoughts: denies suicidal thoughts Homicidal Thoughts: denies homicidal thoughts Hallucinations: no auditory hallucinations and no visual hallucinations Denies AH, but reports hearing voices "in the background" which are distracting, and which may represent auditory hallucinations. Cognition: recent memory grossly intact and language grossly intact; + attention not intact Insight: + impaired insight Judgement: + impaired judgement Vital Signs (Past 24 Hours) Last Vital Signs Temp 36.5 C 12/13/19 06:34 Pulse 91 H 12/13/19 06:35 Resp 18 12/13/19 06:34 BP 101/69 12/13/19 06:35 Pulse Ox 96 12/06/19 02:27 Results & Data ([facility]) Current Inpatient Medications Current Inpatient Medications: Current Inpatient Medications Acetaminophen (Tylenol) 650 mg PO Q4H PRN PRN Reason: Headache or Minor Fever Stop: 01/05/20 01:23 Al Hydrox/Mg Hydrox/Simethicone (Maalox) 30 ml PO Q4H PRN PRN Reason: GI Upset Stop: 01/05/20 01:23 Bismuth Subsalicylate (Kaopectate) 15 ml PO PRN PRN PRN Reason: Loose Stool Stop: 01/05/20 01:23 Hydroxyzine HCl (Vistaril) 50 mg PO HSZ PRN PRN Reason: Insomnia Stop: 01/05/20 01:23 Hydroxyzine HCl (Vistaril) 25 mg PO Q4H PRN PRN Reason: Anxiety Stop: 01/05/20 01:23 [place] Carbonate ([place] Carbonate) 900 mg PO HS MOUNIKA Stop: 01/08/20 21:59 Last Admin: 12/12/19 20:22 Dose: 900 mg Documented by: [place] Carbonate ([place] Carbonate) 300 mg PO QAM MOUNIKA Stop: 01/12/20 08:59 Last Admin: 12/13/19 09:02 Dose: 300 mg Documented by: Lorazepam (Ativan) 0.5 mg PO Q6H PRN PRN Reason: Anxiety/Agitation Stop: 01/06/20 15:04 Last Admin: 12/07/19 15:20 Dose: 0.5 mg Documented by: Magnesium Hydroxide (Milk Of Magnesia) 30 ml PO DAILY PRN PRN Reason: Constipation Stop: 01/05/20 01:23 Risperidone (Risperdal) 1 mg PO Q6H PRN PRN Reason: viviane/anxiety/agitation Stop: 01/06/20 15:02 Last Admin: 12/07/19 15:24 Dose: 1 mg Documented by: Risperidone (Risperdal M) 2 mg PO QAM MOUNIKA Stop: 01/11/20 08:59 Last Admin: 12/13/19 09:02 Dose: 2 mg Documented by: Risperidone (Risperdal M) 3 mg PO HS MOUNIKA Stop: 01/10/20 21:59 Last Admin: 12/12/19 20:23 Dose: 3 mg Documented by: Sodium Chloride ([place] Nasal) 1 - 2 sprays NA PRN PRN PRN Reason: Nasal Dryness/Congestion Stop: 01/05/20 01:23 Mental Health & Subst Abuse Tx Psychiatrist Name of Psychiatrist: Toshia Singleton Psychiatrist's Date of Appointment with Psychiatrist: 01/10/20 Time of Appointment with Psychiatrist: 8:20 am Psychiatric Appointment Comment: [address] [facility] Therapist Name of Therapist: Danae Lopez Therapist's Date of Therapist Appointment: 12/18/19 Time of Therapist Appointment: 6:00pm Therapy Appointment Comment: [address] [facility], [facility] [address] Market Garden Worker Name of Market Garden Worker: PRASAD Celeste Phone Number for Market Garden Worker: [phone] Case Management Appointment Comment: [address] [facility], [facility] [address], [place] Post Discharge Appointments Primary Care Physician Name Of Family Doctor: Mee Verduzco Primary Care Provider Appointment Comment: [address] [place] [address] Contact Information Discharge Discharge Address: [address] [place] [id number]
[2019-12-13] MEDS: LITHIUM CARBONATE 300 MG TAB PO SCH (20:46)
[2019-12-13] MEDS ORDERED: PALIPERIDONE 3 MG TABCR PO ONE (22:00)
[2019-12-14] MEDS ORDERED: PALIPERIDONE 3 MG TABCR PO SCH (09:00)
--- NOTE | 2019-12-14 14:08 | Psychiatric Progress Note ---
Date of Service December 14, 2019 Impression / Recommendations Impression The patient is a 34-year-old single male who has a history of psychosis NOS and mood disorder NOS, with multiple previous hospitalizations, but although he has had multiple visits to the emergency room for psychiatric complaints such as "depression," he has not been seen here on the inpatient unit for approximately 9 years and says he has not had any psychiatric treatment for the last several years. He presented initially with self-reports of suicidal ideation with various plans, including hanging, self poisoning, etc. Clinical findings at admission included mood alterations and psychotic symptoms. Within 24 hours he began to state that his mood was "great," and affect appeared expansive, with notably disorganized, pressured, and voluminous speech, suggestive of flight of ideas, but mood continues to vacillate with both depressive and manic symptoms. He remains psychotic, disorganized, with delusions of persecution and paranoia, and is guarded and reluctant to discuss his perceptions. It was noted that he had been treated successfully with risperidone and lithium during hospitalization here at [facility] in 2011, and these medications have been resumed. He remains delusional and paranoid, disorganized, and easily overwhelmed by external stimuli, but is reporting improvements in mood and denying SI. He is on a 303 involuntary commitment as of 12/10/2019. Pt was agreeable but he is still considering it. Inpatient treatment is medically necessary due to the severity of his symptoms and risk for harm to himself if discharged prematurely. (1) Psychosis: 12/05 -continue hospitalization on 302, in a medically necessary private room due to psychosis. His 302 expires on Tuesday. Continue to gather information toward the need for further involuntary commitment. -Previously diagnosed with psychosis NOS, unknown what his outpatient diagnosis was, and has not been in treatment for years. Differential includes schizophrenia, schizoaffective disorder, and a psychotic mood disorder. -He agreed to resume risperidone as it was helpful in the past, and will start 1 mg twice daily with fasting labs tomorrow. Reviewed risks and benefits, and patient has tolerated first 2 doses well. -Gather collateral information if able to identify any supports in the community. 12/06 -Patient reports that he feels that he is responding favorably to risperidone. He notes some difficulty with sedation, and, more specifically, says that he misses having as much energy has he had had prior to admission. However, he also agrees that his thinking has become more organized, he has become more calm, and he is now sleeping well. -We discussed with the patient the fact that he had responded favorably to a combination of risperidone and lithium carbonate in the past, and the patient said that he recalls taking lithium carbonate and does not recall any adverse effects. However, he seemed ambivalent about the question of adding a second psychiatric medication at this point. We recommended that he remain in the hospital so that we can restart lithium carbonate as a mood stabilizer. He accepts that he is having mood alterations and mood swings, and does endorse certain symptoms consistent with viviane in the recent past. However, he is not willing to remain hospitalized voluntarily, and we do not find at this time that he can be expected to continue to meet criteria for involuntary treatment following another 2 or 3 days of observation and medication adjustments as indicated. -The patient's request is that the decision to start lithium be made on an outpatient basis. He reports intent to be fully adherent with the outpatient medication and reiterates that the reason that he had the mental health hotline was in order to secure outpatient services. -Some of the patient's reports are contradictory, or seem somewhat unlikely. For example, he told me that he was always very close with his mother, and that she had in 2012 of amyotrophic lateral sclerosis. When I asked him if that might of had something to do with his psychiatric hospitalization, he responded by saying, "no, I do not think that my being in the hospital had anything to do with it. I then asked him if he had been with his mother when she , and he said that he had not. I asked him if he attended a or memorial service for his mother, and he said "I do not remember. I do not think so." He also told me that he had been close with his father who we reports within a year of his mother. He also said he could remember if he went to a memorial or service for his father, but he did say that he knows that his father of lung cancer. 12/07 -Increase risperidone to 2 mg twice daily, and continue as needed dose. Con tinue lithium, consolidate to 900 mg at bedtime for renal protection, and check trough level after 5 days (12/12/2019). -303 hearing scheduled for Tuesday. Attempt to get collateral information from his friend Willard, as this is the only support he can identify. -He will need outpatient care including psychiatry, therapy, and case management. Address on Tuesday. 12/08 -Social work attempting to contact his friend Willard for collateral information. 303 hearing tomorrow. -Continue current medication doses. Discussed option of switching risperidone to paliperidone, given patient's concern about side effects and also to allow an option of an ROBERT, but he was unwilling to do this. Previously responded to 6 mg daily of risperidone, so may need further dose titration. 12/09 -collateral information from friend indicates patient did well when in treatment in [id number], but decompensated over the next several years after he dropped out of treatment, with another acute decompensation over the past few months. -Patient is responding well to current medication and does not want to increase the doses further, in fact asking to decrease them, but would not recommend this given the fact that he symptoms are still not well controlled; continue them and check lithium level after 5 days. Discussed with him that after he is stable for approximately 6 months, he and his outpatient clinician could consider decreasing doses, but the doing so now would likely result in decompensation and longer hospitalization. -Refer for case management, outpatient psychiatry, and therapy. 12/10 - Continues to demonstrate gradual improvement with current medication regimen, but has ongoing delusions and paranoia along with disorganized and tangential thoughts. Pt consented to titrating risperidone to 2mg qAM and 3mg qHS - continuing lithium at 900mg qHS with level to be drawn on 12/11. - Pt completed [facility] phone intake - hopeful to have assigned classification case manager meet with patient - Referred to [facility] for medication management, will require a therapist 12/11 - Continue risperidone 2mg qAM and 3mg qHS, can consider further titration as indicated/tolerated - Pt did engage in somewhat organized conversation about cross-titration to paliperidone with option to start an ROBERT. He seemed very intrigued by this and requested additional information, but was not yet comfortable consenting to the switch. - Ovando level drawn today - subtherapeutic at 0.5. Will increase lithium to 300mg qAM and 900mg qHS after discussion of risks, benefits, and dosing options with patient - Continue to encourage group participation as appropriate - Meeting with assigned classification case manager this afternoon - Maintain private room due to continued delusions/paranoia - staff reports ongoing thought disorganization, paranoia, and occasional bizarre statements; although patient denies any of this at this time 12/12 -Reviewed Invega, Invega Sustenna, and risperidone in detail with patient, provided up-to-date patient handouts on the medications, and answered his questions. We are recommending a trial of Invega due to the more favorable side effect profile and the option of an ROBERT. He has some difficulty manipulating information, and says he would like to think about it some more before making a decision. If he does agree to Invega, we will need to check with his insurance regarding the need for a PA. -Continue increase lithium dose and consolidate to bedtime for renal protection; repeat trough level due 12/18/2019. 12/13 - Continue Invega titration, recommending titration to 9mg for tomorrow morning. - We are continuing to recommend that patient receive the two loading injections of Invega Sustenna prior to discharge; however, pt was rather irritable today and was not willing to discuss this today - Continue MNPR due to level of irritability and disorganized thoughts (2) Mood disorder: 12/05 -differential includes psychotic depression or bipolar disorder. Assessment limited as patient is a poor historian. Although he reports primary depressive symptoms, his affect is expansive, and this morning he was singing and dancing and is reporting good mood. Attempt to identify someone for collateral information as above, and continue to monitor and observe mood symptoms here. He had a good response to lithium when hospitalized here in 2011, so could consider a retrial of that medication. 12/06 -The addition of risperidone 1 mg twice a day seems to have stabilized the patient's mood to some degree. The clinical data so far would suggest that the patient may meet criteria for a rapid cycling bipolar disorder or, possibly, for schizoaffective disorder bipolar type. -The patient does endorse certain manic symptoms prior to admission, as well as yesterday. He feels that risperidone has assisted him in that regard and that he has noted that his mood seems more stable. He also reports that he feels that he is more often depressed than manic. When asked to talk about his initial statement that he is "the greatest kana in the world," he initially said that he was kidding and that he understands that that sounds grandiose, but he also was able to say that in the past he has sometimes felt that way. -The patient's thought content today is probably more consistent with depression. He was somewhat self depreciating and talked about the fact that he has had difficulty with various academic pursuits (he claims that within the past 8 years she has tried several colleges, including [employer] without success). 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 He externalizes responsibility for the fact that he lost both of these jobs, but says that he recognizes that at the age of 34 he should have a steady source of income and more friendsalthough he says that he currently has 2 fairly close friends that he can count on. 12/09 -Continue to explore ways to increase socialization and supports outside of the hospital, for example by attending sabianism or other activities. 12/11 - Continue as above Risk Factors Assessment Male: Yes : Yes Do You Have Access To A Gun?: No (Patient said he is unable to own a gun as he has been involuntarily committed in the past.) Health Problems: Yes Mental Health Diagnoses: Yes Substance Use Disorders: No Previous Attempt: Yes Previous Psychiatric Hospitalization: Yes Smoker: No Protective Factors Assessment Gnosticist Beliefs: Yes : No Responsible for Young Children: No Employed: No Supportive Family: No Good Rapport with Provider: No Interval History Identifying Information BOBBY SRINIVASAN is a 34-year-old M who currently lives in [place] alone, has a history of schizophrenia, and was admitted on 12/06/19 01:24 on a 302 involuntary commitment for psychosis and SI with multiple plans. He is on a 303 involuntary commitment as of 12/10/2019. Chief Complaint "[]". Review of Systems Notes Constitutional: [denied] Cardiovascular: [denied] Respiratory: [denied] Gastrointestinal: [denied] Neurological: [denied] Psychiatric: [denies symptoms other than stated above] Total of at least 10 systems reviewed, pertinent positives as above and in HPI. Sleep Information Total Hours of Sleep: 6 Sleep Comments: pt on q-15 minute checks Meal Information Percent Meal Consumed - Breakfast: 50 Percent Meal Consumed - Lunch: 75 Percent Meal Consumed - Dinner: 100 Subjective Subjective Patient was seen & assessed and interval progress reviewed with [treatment team] [nursing and social work] Physical Exam Vital Signs (Past 24 Hours) Last Vital Signs Temp 36.8 C 12/14/19 06:29 Pulse 86 12/14/19 06:29 Resp 18 12/14/19 06:29 BP 105/67 12/14/19 06:29 Pulse Ox 96 12/06/19 02:27 Results & Data ([facility]) Current Inpatient Medications Current Inpatient Medications: Current Inpatient Medications Acetaminophen (Tylenol) 650 mg PO Q4H PRN PRN Reason: Headache or Minor Fever Stop: 01/05/20 01:23 Al Hydrox/Mg Hydrox/Simethicone (Maalox) 30 ml PO Q4H PRN PRN Reason: GI Upset Stop: 01/05/20 01:23 Bismuth Subsalicylate (Kaopectate) 15 ml PO PRN PRN PRN Reason: Loose Stool Stop: 01/05/20 01:23 Hydroxyzine HCl (Vistaril) 50 mg PO HSZ PRN PRN Reason: Insomnia Stop: 01/05/20 01:23 Hydroxyzine HCl (Vistaril) 25 mg PO Q4H PRN PRN Reason: Anxiety Stop: 01/05/20 01:23 Ovando Carbonate (Ovando Carbonate) 1,200 mg PO HS MOUNIKA Stop: 01/13/20 21:59 Lorazepam (Ativan) 0.5 mg PO Q6H PRN PRN Reason: Anxiety/Agitation Stop: 01/06/20 15:04 Last Admin: 12/07/19 15:20 Dose: 0.5 mg Documented by: Magnesium Hydroxide (Milk Of Magnesia) 30 ml PO DAILY PRN PRN Reason: Constipation Stop: 01/05/20 01:23 Paliperidone (Invega) 6 mg PO QAM MOUNIKA Stop: 01/13/20 08:59 Last Admin: 12/14/19 09:01 Dose: 6 mg Documented by: Risperidone (Risperdal) 1 mg PO Q6H PRN PRN Reason: viviane/anxiety/agitation Stop: 01/06/20 15:02 Last Admin: 12/07/19 15:24 Dose: 1 mg Documented by: Sodium Chloride ([place] Nasal) 1 - 2 sprays NA PRN PRN PRN Reason: Nasal Dryness/Congestion Stop: 01/05/20 01:23 Mental Health & Subst Abuse Tx Psychiatrist Name of Psychiatrist: Toshia Singleton Psychiatrist's Date of Appointment with Psychiatrist: 01/10/20 Time of Appointment with Psychiatrist: 8:20 am Psychiatric Appointment Comment: [address] [facility] Therapist Name of Therapist: Danae Lopez Therapist's Date of Therapist Appointment: 12/18/19 Time of Therapist Appointment: 6:00pm Therapy Appointment Comment: [address] [facility] [address], [place] Hospice Social Worker Name of Hospice Social Worker: PRASAD Celeste Phone Number for Hospice Social Worker: [phone] Case Management Appointment Comment: [address] [facility] [address], [place] Post Discharge Appointments Primary Care Physician Name Of Family Doctor: Mee Verduzco Primary Care Provider Appointment Comment: [address] [place] [address] Contact Information Discharge Discharge Address: [address] [place] [address], [place] [id number]
--- NOTE | 2019-12-14 18:54 | Psychiatric Progress Note ---
Date of Service December 14, 2019 Impression / Recommendations Impression Originally somewhat manic, hyperactive, intrusive, disorganized, and pressured, the patient's thoughts have become more organized and he is less pressured. His thinking sometimes borders on the illogical, but he is able, with some effort, to reconstitute and remain focused. He is no longer intrusive. In addition to the symptoms of viviane observed during the initial portion of the stay, the patient began to exhibit paranoid delusions. He identifies several staff members, including the activity therapist and 1 of the psychiatrist as being "devils" who were posing his healthcare providers. Also claims that all of his, patients and staff, were going to need to be prepared to defend ourselves against a terrorist attack which he felt was imminent. Within that context, he acknowledged that he had been searching the unit for items that could potentially be used as weapons to defend ourselves against invaders. This week, when we attempted to give him a roommate he told staff that he was afraid of the roommate, specifically because he had learned that the roommate had at one time served in the and the patient believed that because of this the roommate might be prepared to kill or otherwise seriously physically harm the patient. He has been treated with titrating doses of Invega, and the plan for 12/15/2019 is to begin Invega Sustenna, with a repeat in approximately 4 days thereafter. As of 12/14/2019 the patient's degree of paranoia seems less intense and less intrusive. Also, the manic symptoms that were seen initially have abated and his thinking, while still somewhat disorganized and illogical at times, has improved. (1) Psychosis: 12/05 -continue hospitalization on 302, in a medically necessary private room due to psychosis. His 302 expires on Tuesday. Continue to gather information toward the need for further involuntary commitment. -Previously diagnosed with psychosis NOS, unknown what his outpatient diagnosis was, and has not been in treatment for years. Differential includes schizophrenia, schizoaffective disorder, and a psychotic mood disorder. -He agreed to resume risperidone as it was helpful in the past, and will start 1 mg twice daily with fasting labs tomorrow. Reviewed risks and benefits, and patient has tolerated first 2 doses well. -Gather collateral information if able to identify any supports in the [place]. 12/06 -Patient reports that he feels that he is responding favorably to risperidone. He notes some difficulty with sedation, and, more specifically, says that he misses having as much energy has he had had prior to admission. However, he also agrees that his thinking has become more organized, he has become more calm, and he is now sleeping well. -We discussed with the patient the fact that he had responded favorably to a combination of risperidone and lithium carbonate in the past, and the patient said that he recalls taking lithium carbonate and does not recall any adverse effects. However, he seemed ambivalent about the question of adding a second psychiatric medication at this point. We recommended that he remain in the hospital so that we can restart lithium carbonate as a mood stabilizer. He accepts that he is having mood alterations and mood swings, and does endorse certain symptoms consistent with viviane in the recent past. However, he is not willing to remain hospitalized voluntarily, and we do not find at this time that he can be expected to continue to meet criteria for involuntary treatment following another 2 or 3 days of observation and medication adjustments as indicated. -The patient's request is that the decision to start lithium be made on an outpatient basis. He reports intent to be fully adherent with the outpatient medication and reiterates that the reason that he had the mental health hotline was in order to secure outpatient services. -Some of the patient's reports are contradictory, or seem somewhat unlikely. For example, he told me that he was always very close with his mother, and that she had in 2012 of amyotrophic lateral sclerosis. When I asked him if that might of had something to do with his psychiatric hospitalization, he responded by saying, "no, I do not think that my being in the hospital had anything to do with it. I then asked him if he had been with his mother when she , and he said that he had not. I asked him if he attended a or memorial service for his mother, and he said "I do not remember. I do not think so." He also told me that he had been close with his father who we reports within a year of his mother. He also said he could remember if he went to a memorial or service for his father, but he did say that he knows that his father of lung cancer. 12/07 -Increase risperidone to 2 mg twice daily, and continue as needed dose. Continue lithium, consolidate to 900 mg at bedtime for renal protection, and check trough level after 5 days (12/12/2019). -303 hearing scheduled for Tuesday. Attempt to get collateral information from his friend Willard, as this is the only support he can identify. -He will need outpatient care including psychiatry, therapy, and huma hutchinson. Address on Tuesday. 12/08 -Social work attempting to contact his friend Willard for collateral information. 303 hearing tomorrow. -Continue current medication doses. Discussed option of switching risperidone to paliperidone, given patient's concern about side effects and also to allow an option of an ROBERT, but he was unwilling to do this. Previously responded to 6 mg daily of risperidone, so may need further dose titration. 12/09 -collateral information from friend indicates patient did well when in treatment in [id number], but decompensated over the next several years after he dropped out of treatment, with another acute decompensation over the past few months. -Patient is responding well to current medication and does not want to increase the doses further, in fact asking to decrease them, but would not recommend this given the fact that he symptoms are still not well controlled; continue them and check lithium level after 5 days. Discussed with him that after he is stable for approximately 6 months, he and his outpatient clinician could consider decreasing doses, but the doing so now would likely result in decompensation and longer hospitalization. -Refer for case management, outpatient psychiatry, and therapy. 12/10 - Continues to demonstrate gradual improvement with current medication regimen, but has ongoing delusions and paranoia along with disorganized and tangential thoughts. Pt consented to titrating risperidone to 2mg qAM and 3mg qHS - continuing lithium at 900mg qHS with level to be drawn on 12/11. - Pt completed [facility] phone intake - hopeful to have assigned sample case porter meet with patient - Referred to [facility] for medication management, will require a therapist 12/11 - Continue risperidone 2mg qAM and 3mg qHS, can consider further titration as indicated/tolerated - Pt did engage in somewhat organized conversation about cross-titration to paliperidone with option to start an ROBERT. He seemed very intrigued by this and requested additional information, but was not yet comfortable consenting to the switch. - [place] level drawn today - subtherapeutic at 0.5. Will increase lithium to 300mg qAM and 900mg qHS after discussion of risks, benefits, and dosing options with patient - Continue to encourage group participation as appropriate - Meeting with assigned sample case porter this afternoon - Maintain private room due to continued delusions/paranoia - staff reports ongoing thought disorganization, paranoia, and occasional bizarre statements; although patient denies any of this at this time 12/12 -Reviewed Invega, Invega Sustenna, and risperidone in detail with patient, provided up-to-date patient handouts on the medications, and answered his questions. We are recommending a trial of Invega due to the more favorable side effect profile and the option of an ROBERT. He has some difficulty manipulating information, and says he would like to think about it some more before making a decision. If he does agree to Invega, we will need to check with his insurance regarding the need for a PA. -Continue increase lithium dose and consolidate to bedtime for renal protection; repeat trough level due 12/18/2019. 12/13 - Continue Invega titration, recommending titration to 9mg for tomorrow morning. - We are continuing to recommend that patient receive the two loading injections of Invega Sustenna prior to discharge; however, pt was rather irritable today and was not willing to discuss this today - Continue MNPR due to level of irritability and disorganized thoughts 12/14 -The patient agrees to Invega sustenna, and tells us that he understands that we want him to take this medicine to help assure adherence with medication on an outpatient basis in preparation for discharge. -Rather than increase his oral dose to 9 mg tomorrow, we will give the patient a planned dose of Invega Sustenna 234 mg tomorrow (12/16/2019), and will repeat in approximately 4 days, probably at 156 mg IM, as indicated and tolerated. Present on Admission?: Yes (2) Mood disorder: 12/05 -differential includes psychotic depression or bipolar disorder. Assessment limited as patient is a poor historian. Although he reports primary depressive symptoms, his affect is expansive, and this morning he was singing and dancing and is reporting good mood. Attempt to identify someone for collateral information as above, and continue to monitor and observe mood symptoms here. He had a good response to lithium when hospitalized here in 2011, so could consider a retrial of that medication. 12/06 -The addition of risperidone 1 mg twice a day seems to have stabilized the patient's mood to some degree. The clinical data so far would suggest that the patient may meet criteria for a rapid cycling bipolar disorder or, possibly, for schizoaffective disorder bipolar type. -The patient does endorse certain manic symptoms prior to admission, as well as yesterday. He feels that risperidone has assisted him in that regard and that he has noted that his mood seems more stable. He also reports that he feels that he is more often depressed than manic. When asked to talk about his initial statement that he is "the greatest kana in the world," he initially said that he was kidding and that he understands that that sounds grandiose, but he also was able to say that in the past he has sometimes felt that way. -The patient's thought content today is probably more consistent with depression. He was somewhat self depreciating and talked about the fact that he has had difficulty with various academic pursuits (he claims that within the past 8 years she has tried several colleges, including [employer] without success). 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 He externalizes responsibility for the fact that he lost both of these jobs, but says that he recognizes that at the age of 34 he should have a steady source of income and more friendsalthough he says that he currently has 2 fairly close friends that he can count on. 12/09 -Continue to explore ways to increase socialization and supports outside of the hospital, for example by attending lutheran or other activities. 12/11 - Continue as above Inventory Assets Strengths: Intelligent. The patient has some insight and is willing to cooperate with treatment. Able to form positive alliances with other patients. Needs: Resolution of psychosis. Improved ability to trust. Strategy to develop an enhanced support network in the community. Risk Factors Assessment Psychotic illness. Mood disorder. Reported history of previous suicide attempt (although the patient, himself, denies that this is true and says that the old record is in error). Male: Yes : Yes Do You Have Access To A Gun?: No (Patient said he is unable to own a gun as he has been involuntarily committed in the past.) Health Problems: Yes Mental Health Diagnoses: Yes Substance Use Disorders: No Previous Attempt: Yes Previous Psychiatric Hospitalization: Yes Smoker: No Protective Factors Assessment Adventism Beliefs: Yes : No Responsible for Young Children: No Employed: No Supportive Family: No Good Rapport with Provider: No Absence of Any Risk Factors Above: No Interval History Chief Complaint "I think I'm doing better.". Review of Systems Sleep Information Total Hours of Sleep: 6 Sleep Comments: pt on q-15 minute checks Meal Information Percent Meal Consumed - Breakfast: 50 Percent Meal Consumed - Lunch: 75 Percent Meal Consumed - Dinner: 100 Subjective Subjective Patient was seen & assessed and interval progress reviewed with treatment team. I met individually with the patient in order to assess his current mental status, evaluate his response to treatment, coordinate any necessary changes in the patient's treatment regimen with the patient, and address issues, questions and concerns that may arise. The patient had seen another provider earlier in the afternoon, but had asked to see me, and I agreed to do today's evaluation. He explained that he had been upset because he had been told earlier in the day that his length of stay remained the same as it had been earlier in the week, and he felt as if he had been making progress. We focused on the target symptoms evidenced in his treatment plan, and I explained that the staff's concern when reviewing his treatment plan this morning was that they had not seen substantial progress in a number of his identified problems/foci of treatment, and that everyone wanted to make certain that he he was stable and on the right medicine before discharge. I also explained that because he had been nonadherent with his medications on an outpatient basis and because that has been a regular problem we really wanted him to begin a Depo form of his medication, namely Invega Sustenna, which we are hoping to begin tomorrow. The patient has several questions about Invega Sustenna, and I explained that it was a medication that was given by intramuscular injection that eventually allowed a person to only have to have an injection once a month without having to take an oral preparation daily. The patient acknowledges that staff is already talked to him about it and he is willing to accept this form of medication. Most of today's encounter focused on reviewing his target symptoms. I reminded him, for example, that he has been having a lot of difficulty trusting people on the unit and, for example, complained that his roommate had been in the at one time, and so he had expressed fear that the roommate might use his training and physically harm the patient. I also reminded him that he had been telling several lows that he believed that staff members were "the devil," and that he had been searching the unit for devices that could be used as potential weapons in case a terrorist group should break through the double doors on the unit and tach us. The patient nodded his head, and responded, "well, they could. We do not want to be defenseless." Later, he said that he now realizes that that was not a fear that was based in reality. He also added that although he did not trust the roommate and was afraid because he had been in the , he also dislikes having his roommate because he "wore too much cologne." Physical Exam Psychiatric Orientation: alert, oriented x 3 and cooperative Apperance: appropriately dressed, appropriately groomed and appeared stated age Eye Contact: + fair eye contact Motor Behavior: steady gait and station The patient hesitates and tends to look about the room before responding to questions, at least at times. There is no pressured speech, the patient's speech is spontaneous and delivered at a normal volume. Affect: + blunted affect However, he did smile appropriately several times during the encounter. I do not feel depressed. I think I am okay." Thought Process: goal directed thought process The patient's thought processes were tighter and more organized this week then 7 days ago when I last saw the patient. He was very pleased when I provided positive feedback in this regard. Thought Content: + delusions Although the patient did not directly express delusional believes during today's encounter, he did respond to my telling him that the last time I saw him he had been worried that the [facility] behavioral health unit was apt to be invaded by terrorist ("Delmis") by reiterating that he thought it was possible and that it was not a bad idea to be prepared "just in case." Suicidal Thoughts: denies suicidal thoughts Homicidal Thoughts: denies homicidal thoughts Hallucinations: no auditory hallucinations Cognition: recent memory grossly intact and remote memory grossly intact The patient continues to demonstrate some distractibility, but is more focused than previously. Estimated Intelligence: + above average estimated intelligence Insight: + limited insight (The patient states, "I guess I do not disagree that I still need to be here while the medication is adjusted. I just object to the length of stay estimate.") Judgement: + fair judgement Vital Signs (Past 24 Hours) Last Vital Signs Temp 36.8 C 12/14/19 06:29 Pulse 86 12/14/19 06:29 Resp 18 12/14/19 06:29 BP 105/67 12/14/19 06:29 Pulse Ox 96 12/06/19 02:27 Results & Data ([facility]) Current Inpatient Medications Current Inpatient Medications: Current Inpatient Medications Acetaminophen (Tylenol) 650 mg PO Q4H PRN PRN Reason: Headache or Minor Fever Stop: 01/05/20 01:23 Al Hydrox/Mg Hydrox/Simethicone (Maalox) 30 ml PO Q4H PRN PRN Reason: GI Upset Stop: 01/05/20 01:23 Bismuth Subsalicylate (Kaopectate) 15 ml PO PRN PRN PRN Reason: Loose Stool Stop: 01/05/20 01:23 Hydroxyzine HCl (Vistaril) 50 mg PO HSZ PRN PRN Reason: Insomnia Stop: 01/05/20 01:23 Hydroxyzine HCl (Vistaril) 25 mg PO Q4H PRN PRN Reason: Anxiety Stop: 01/05/20 01:23 [place] Carbonate ([place] Carbonate) 1,200 mg PO HS MOUNIKA Stop: 01/13/20 21:59 Lorazepam (Ativan) 0.5 mg PO Q6H PRN PRN Reason: Anxiety/Agitation Stop: 01/06/20 15:04 Last Admin: 12/07/19 15:20 Dose: 0.5 mg Documented by: Magnesium Hydroxide (Milk Of Magnesia) 30 ml PO DAILY PRN PRN Reason: Constipation Stop: 01/05/20 01:23 Paliperidone (Invega) 6 mg PO QAM MOUNIKA Stop: 01/14/20 08:59 Risperidone (Risperdal) 1 mg PO Q6H PRN PRN Reason: viviane/anxiety/agitation Stop: 01/06/20 15:02 Last Admin: 12/07/19 15:24 Dose: 1 mg Documented by: Sodium Chloride ([place] Nasal) 1 - 2 sprays NA PRN PRN PRN Reason: Nasal Dryness/Congestion Stop: 01/05/20 01:23 Mental Health & Subst Abuse Tx Psychiatrist Name of Psychiatrist: Toshia Singleton Psychiatrist's Date of Appointment with Psychiatrist: 01/10/20 Time of Appointment with Psychiatrist: 8:20 am Psychiatric Appointment Comment: [id number] [facility] Therapist Name of Therapist: Danae Lopez Therapist's Date of Therapist Appointment: 12/18/19 Time of Therapist Appointment: 6:00pm Therapy Appointment Comment: [address] [facility], [facility] [address], [place] Hospice Plan Administrator Name of Hospice Plan Administrator: PRASAD Celeste Phone Number for Hospice Plan Administrator: [phone] Case Management Appointment Comment: [address] [facility], [facility] [address], [place] Post Discharge Appointments Primary Care Physician Name Of Family Doctor: Mee Verduzco Primary Care Provider Appointment Comment: [address] [place] [address] Contact Information Discharge Discharge Address: [address] [place] [address], [place] [address]
[2019-12-14] MEDS: LITHIUM CARBONATE 300 MG TAB PO SCH (20:58)
--- NOTE | 2019-12-15 08:59 | Psychiatric Progress Note ---
Date of Service December 15, 2019 Impression / Recommendations Impression 4-year-old single male who has a history of psychosis NOS and mood disorder NOS, with multiple previous hospitalizations, but although he has had multiple visits to the emergency room for psychiatric complaints such as "depression," he has not been seen here on the inpatient unit for approximately 9 years and says he has not had any psychiatric treatment for the last several years. He presented initially with self-reports of suicidal ideation with various plans, including hanging, self poisoning, etc. Clinical findings at admission included mood alterations and psychotic symptoms. Within 24 hours he began to state that his mood was "great," and affect appeared expansive, with notably disorganized, pressured, and voluminous speech, suggestive of flight of ideas, but mood continues to vacillate with both depressive and manic symptoms. Though there has been some improvement observed, he remains psychotic and disorganized, with some ongoing evidence thought blocking. He remains guarded and reluctant to discuss his delusions. It was noted that he had been treated successfully with risperidone and lithium during hospitalization here at [facility] in 2011, and oral risperidone was converted to paliperidone to all of initiation of an ROBERT. Pt did consent to Invega Sustenna and received the initial loading injection on 12/15/2019. He is on a 303 involuntary commitment as of 12/10/2019. (1) Psychosis: 12/05 -continue hospitalization on 302, in a medically necessary private room due to psychosis. His 302 expires on Tuesday. Continue to gather information toward the need for further involuntary commitment. -Previously diagnosed with psychosis NOS, unknown what his outpatient diagnosis was, and has not been in treatment for years. Differential includes schizophrenia, schizoaffective disorder, and a psychotic mood disorder. -He agreed to resume risperidone as it was helpful in the past, and will start 1 mg twice daily with fasting labs tomorrow. Reviewed risks and benefits, and patient has tolerated first 2 doses well. -Gather collateral information if able to identify any supports in the community. 12/06 -Patient reports that he feels that he is responding favorably to risperidone. He notes some difficulty with sedation, and, more specifically, says that he misses having as much energy has he had had prior to admission. However, he also agrees that his thinking has become more organized, he has become more calm, and he is now sleeping well. -We discussed with the patient the fact that he had responded favorably to a combination of risperidone and lithium carbonate in the past, and the patient said that he recalls taking lithium carbonate and does not recall any adverse effects. However, he seemed ambivalent about the question of adding a second psychiatric medication at this point. We recommended that he remain in the hospital so that we can restart lithium carbonate as a mood stabilizer. He accepts that he is having mood alterations and mood swings, and does endorse certain symptoms consistent with viviane in the recent past. However, he is not willing to remain hospitalized voluntarily, and we do not find at this time that he can be expected to continue to meet criteria for involuntary treatment following another 2 or 3 days of observation and medication adjustments as indicated. -The patient's request is that the decision to start lithium be made on an outpatient basis. He reports intent to be fully adherent with the outpatient medication and reiterates that the reason that he had the mental health hotline was in order to secure outpatient services. -Some of the patient's reports are contradictory, or seem somewhat unlikely. For example, he told me that he was always very close with his mother, and that she had in 2012 of amyotrophic lateral sclerosis. When I asked him if that might of had something to do with his psychiatric hospitalization, he responded by saying, "no, I do not think that my being in the hospital had anything to do with it. I then asked him if he had been with his mother when she , and he said that he had not. I asked him if he attended a or memorial service for his mother, and he said "I do not remember. I do not think so." He also told me that he had been close with his father who we reports within a year of his mother. He also said he could remember if he went to a memorial or service for his father, but he did say that he knows that his father of lung cancer. 12/07 -Increase risperidone to 2 mg twice daily, and continue as needed dose. Continue lithium, consolidate to 900 mg at bedtime for renal protection, and check trough level after 5 days (12/12/2019). -303 hearing scheduled for Tuesday. Attempt to get collateral information from his friend Willard, as this is the only support he can identify. -He will need outpatient care including psychiatry, therapy, and case management. Address on Tuesday. 12/08 -Social work attempting to contact his friend Willard for collateral information. 303 hearing tomorrow. -Continue current medication doses. Discussed option of switching risperidone to paliperidone, given patient's concern about side effects and also to allow an option of an ROBERT, but he was unwilling to do this. Previously responded to 6 mg daily of risperidone, so may need further dose titration. 12/09 -collateral information from friend indicates patient did well when in treatment in [id number], but decompensated over the next several years after he dropped out of treatment, with another acute decompensation over the past few months. -Patient is responding well to current medication and does not want to increase the doses further, in fact asking to decrease them, but would not recommend this given the fact that he symptoms are still not well controlled; continue them and check lithium level after 5 days. Discussed with him that after he is stable for approximately 6 months, he and his outpatient clinician could consider decreasing doses, but the doing so now would likely result in decompensation and longer hospitalization. -Refer for case management, outpatient psychiatry, and therapy. 12/10 - Continues to demonstrate gradual improvement with current medication regimen, but has ongoing delusions and paranoia along with disorganized and tangential thoughts. Pt consented to titrating risperidone to 2mg qAM and 3mg qHS - continuing lithium at 900mg qHS with level to be drawn on 12/11. - Pt completed [facility] phone intake - hopeful to have assigned rn case management meet wit h patient - Referred to [facility] for medication management, will require a therapist 12/11 - Continue risperidone 2mg qAM and 3mg qHS, can consider further titration as indicated/tolerated - Pt did engage in somewhat organized conversation about cross-titration to paliperidone with option to start an ROBERT. He seemed very intrigued by this and requested additional information, but was not yet comfortable consenting to the switch. - [place] level drawn today - subtherapeutic at 0.5. Will increase lithium to 300mg qAM and 900mg qHS after discussion of risks, benefits, and dosing options with patient - Continue to encourage group participation as appropriate - Meeting with assigned rn case management this afternoon - Maintain private room due to continued delusions/paranoia - staff reports ongoing thought disorganization, paranoia, and occasional bizarre statements; although patient denies any of this at this time 12/12 -Reviewed Invega, Invega Sustenna, and risperidone in detail with patient, provided up-to-date patient handouts on the medications, and answered his questions. We are recommending a trial of Invega due to the more favorable side effect profile and the option of an ROBERT. He has some difficulty manipulating information, and says he would like to think about it some more before making a decision. If he does agree to Invega, we will need to check with his insurance regarding the need for a PA. -Continue increase lithium dose and consolidate to bedtime for renal protection; repeat trough level due 12/18/2019. 12/13 -The patient agrees to Invega sustenna, and tells us that he understands that we want him to take this medicine to help assure adherence with medication on an outpatient basis in preparation for discharge. -Rather than increase his oral dose to 9 mg tomorrow, we will give the patient a planned dose of Invega Sustenna 234 mg tomorrow (12/16/2019), and will repeat in approximately 4 days, probably at 156 mg IM, as indicated and tolerated. 12/14 - Pt received and reportedly tolerated initial loading injection of Invega Sustenna - reporting only injection site pain. - Continue oral Invega 6mg at this time, can discontinue oral supplementation when pt receives second loading injection - Some observed improvement in organization of thought, but still seems to be struggling with thought blocking - Maintain MNPR (2) Mood disorder: 12/05 -differential includes psychotic depression or bipolar disorder. Assessment limited as patient is a poor historian. Although he reports primary depressive symptoms, his affect is expansive, and this morning he was singing and dancing and is reporting good mood. Attempt to identify someone for collateral information as above, and continue to monitor and observe mood symptoms here. He had a good response to lithium when hospitalized here in 2011, so could consider a retrial of that medication. 12/06 -The addition of risperidone 1 mg twice a day seems to have stabilized the patient's mood to some degree. The clinical data so far would suggest that the patient may meet criteria for a rapid cycling bipolar disorder or, possibly, for schizoaffective disorder bipolar type. -The patient does endorse certain manic symptoms prior to admission, as well as yesterday. He feels that risperidone has assisted him in that regard and that he has noted that his mood seems more stable. He also reports that he feels that he is more often depressed than manic. When asked to talk about his initial statement that he is "the greatest kana in the world," he initially said that he was kidding and that he understands that that sounds grandiose, but he also was able to say that in the past he has sometimes felt that way. -The patient's thought content today is probably more consistent with depression. He was somewhat self depreciating and talked about the fact that he has had difficulty with various academic pursuits (he claims that within the past 8 years she has tried several colleges, including [employer] without success). 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 He externalizes responsibility for the fact that he lost both of these jobs, but says that he recognizes that at the age of 34 he should have a steady source of income and more friendsalthough he says that he currently has 2 fairly close friends that he can count on. 12/09 -Continue to explore ways to increase socialization and supports outside of the hospital, for example by attending mosque or other activities. 12/11 - 12/14 - Continue as above Inventory Assets Strengths: Intelligent. The patient has some insight and is willing to cooperate with treatment. Able to form positive alliances with other patients. Needs: Resolution of psychosis. Improved ability to trust. Strategy to develop an enhanced support network in the community. Risk Factors Assessment Male: Yes : Yes Do You Have Access To A Gun?: No (Patient said he is unable to own a gun as he has been involuntarily committed in the past.) Health Problems: Yes Mental Health Diagnoses: Yes Substance Use Disorders: No Previous Attempt: Yes Previous Psychiatric Hospitalization: Yes Smoker: No Protective Factors Assessment Islam Beliefs: Yes : No Responsible for Young Children: No Employed: No Supportive Family: No Good Rapport with Provider: No Absence of Any Risk Factors Above: No Interval History Identifying Information BOBBY SRINIVASAN is a 34-year-old M who currently lives in [place] alone, has a history of schizophrenia, and was admitted on 12/06/19 01:24 on a 302 involuntary commitment for psychosis and SI with multiple plans. Chief Complaint "Um...I'm ok. Feeling better. Trying to stay busy." Review of Systems Notes Constitutional: reported fatigue earlier this morning Cardiovascular: denied Respiratory: denied Gastrointestinal: denied Neurological: denied Psychiatric: denies symptoms other than stated above Total of at least 10 systems reviewed, pertinent positives as above and in HPI. Sleep Information Total Hours of Sleep: 8.5 Sleep Comments: pt on q-15 minute checks Meal Information Percent Meal Consumed - Breakfast: 50 Percent Meal Consumed - Lunch: 75 Percent Meal Consumed - Dinner: 100 Subjective Subjective Patient was seen & assessed and interval progress reviewed with nursing and social work. Staff report the patient was more isolative and irritable throughout the day yesterday. He continued to demonstrate delusional thinking yesterday afternoon. Pt was seen today to assess progress since admission. He did receive scheduled dose of Invega Sustenna this morning, and reports only injection site pain. Pt states that he is "ok" today and is "feeling better." Pt states he has been keeping busy with exercise and group games today and feels happier. Pt does not openly discuss any delusional thought content during our conversation, and when directly asked about his thoughts denies any concerns. Pt denies any concerns related to his mood. Pt is still hopeful for discharge in the next few days. Timeline of dosing of Invega Sustenna was reviewed. Pt tolerated this conversation much better today, without nearly the irritability he had with this provider on the topic yesterday. He denies any other safety concerns at this time. Physical Exam Psychiatric Orientation: alert and cooperative (superficially pleasant) Apperance: appropriately dressed (casually, in scrub pants and sweater), appropriately groomed and appeared stated age Eye Contact: + fair eye contact Motor Behavior: + psychomotor agitation (some restlessness/fidgeting and pacing) Speech: normal rate/rhythm/volume of speech (some pauses before answering questions, brief repsonses ) Affect: + constricted affect (but appearing brighter, smiling, more energetic ) Mood: no depressed mood ("I feel better") Thought Process: linear/logical thought process (moreso today), + thought blocking (continued paucity of thought), + circumstantial thought process and + concrete thought process Thought Content: + delusions (likely ongoing, though not as preoccupied with them during conversation) Suicidal Thoughts: denies suicidal thoughts Homicidal Thoughts: denies homicidal thoughts Hallucinations: no auditory hallucinations and no visual hallucinations Cognition: attention grossly intact and language grossly intact Estimated Intelligence: consistent with education level Insight: + limited insight Judgement: + limited judgement Vital Signs (Past 24 Hours) Last Vital Signs Temp 36.5 C 12/15/19 06:24 Pulse 61 12/15/19 06:24 Resp 18 12/15/19 06:24 BP 109/71 12/15/19 06:24 Pulse Ox 96 12/06/19 02:27 Results & Data ([facility]) Current Inpatient Medications Current Inpatient Medications: Current Inpatient Medications Acetaminophen (Tylenol) 650 mg PO Q4H PRN PRN Reason: Headache or Minor Fever Stop: 01/05/20 01:23 Al Hydrox/Mg Hydrox/Simethicone (Maalox) 30 ml PO Q4H PRN PRN Reason: GI Upset Stop: 01/05/20 01:23 Bismuth Subsalicylate (Kaopectate) 15 ml PO PRN PRN PRN Reason: Loose Stool Stop: 01/05/20 01:23 Hydroxyzine HCl (Vistaril) 50 mg PO HSZ PRN PRN Reason: Insomnia Stop: 01/05/20 01:23 Hydroxyzine HCl (Vistaril) 25 mg PO Q4H PRN PRN Reason: Anxiety Stop: 01/05/20 01:23 [place] Carbonate ([place] Carbonate) 1,200 mg PO HS MOUNIKA Stop: 01/13/20 21:59 Last Admin: 12/14/19 20:58 Dose: 1,200 mg Documented by: Lorazepam (Ativan) 0.5 mg PO Q6H PRN PRN Reason: Anxiety/Agitation Stop: 01/06/20 15:04 Last Admin: 12/07/19 15:20 Dose: 0.5 mg Documented by: Magnesium Hydroxide (Milk Of Magnesia) 30 ml PO DAILY PRN PRN Reason: Constipation Stop: 01/05/20 01:23 Paliperidone (Invega) 6 mg PO QAM MOUNIKA Stop: 01/14/20 08:59 Paliperidone Palmitate (Invega Sustenna) 234 mg IM ONE ONE Stop: 12/15/19 09:01 Risperidone (Risperdal) 1 mg PO Q6H PRN PRN Reason: viviane/anxiety/agitation Stop: 01/06/20 15:02 Last Admin: 12/07/19 15:24 Dose: 1 mg Documented by: Sodium Chloride (Detmold Nasal) 1 - 2 sprays NA PRN PRN PRN Reason: Nasal Dryness/Congestion Stop: 01/05/20 01:23 Mental Health & Subst Abuse Tx Psychiatrist Name of Psychiatrist: Toshia Singleton Psychiatrist's Date of Appointment with Psychiatrist: 01/10/20 Time of Appointment with Psychiatrist: 8:20 am Psychiatric Appointment Comment: [id number] [facility] Therapist Name of Therapist: Danae Lopez Therapist's Date of Therapist Appointment: 12/18/19 Time of Therapist Appointment: 6:00pm Therapy Appointment Comment: [address] [facility], [facility] [address], [place] Erco Machine Operator Name of Erco Machine Operator: SOILAU - Roula Phone Number for Erco Machine Operator: [phone] Case Management Appointment Comment: [address] [facility], [facility] [address], [place] Post Discharge Appointments Primary Care Physician Name Of Family Doctor: Mee Verduzco Primary Care Provider Appointment Comment: [address] [place] [address] Contact Information Discharge Discharge Address: [address] [place] [address], [place] [address]
[2019-12-15] MEDS ORDERED: PALIPERIDONE 3 MG TABCR PO SCH (09:00)
[2019-12-15] MEDS ORDERED: PALIPERIDONE PALMITATE 234 MG/1.5 ML SYR IM ONE (09:00)
[2019-12-15] MEDS: PALIPERIDONE 3 MG TABCR PO SCH (09:07)
[2019-12-15] MEDS: LITHIUM CARBONATE 300 MG TAB PO SCH (21:26)
--- NOTE | 2019-12-16 07:40 | Psychiatric Progress Note ---
Date of Service December 16, 2019 Impression / Recommendations Impression 4-year-old single male who has a history of psychosis NOS and mood disorder NOS, with multiple previous hospitalizations, but although he has had multiple visits to the emergency room for psychiatric complaints such as "depression," he has not been seen here on the inpatient unit for approximately 9 years and says he has not had any psychiatric treatment for the last several years. He presented initially with self-reports of suicidal ideation with various plans, including hanging, self poisoning, etc. Clinical findings at admission included mood alterations and psychotic symptoms. Within 24 hours he began to state that his mood was "great," and affect appeared expansive, with notably disorganized, pressured, and voluminous speech, suggestive of flight of ideas, but mood continues to vacillate with both depressive and manic symptoms. Though there has been some improvement observed, he remains psychotic and disorganized, with some ongoing evidence thought blocking. He remains guarded and reluctant to discuss his delusions. It was noted that he had been treated successfully with risperidone and lithium during hospitalization here at [facility] in 2011, and oral risperidone was converted to paliperidone to all of initiation of an ROBERT. Pt did consent to Invega Sustenna and received the initial loading injection on 12/15/2019. He is on a 303 involuntary commitment as of 12/10/2019. (1) Psychosis: 12/05 -continue hospitalization on 302, in a medically necessary private room due to psychosis. His 302 expires on Tuesday. Continue to gather information toward the need for further involuntary commitment. -Previously diagnosed with psychosis NOS, unknown what his outpatient diagnosis was, and has not been in treatment for years. Differential includes schizophrenia, schizoaffective disorder, and a psychotic mood disorder. -He agreed to resume risperidone as it was helpful in the past, and will start 1 mg twice daily with fasting labs tomorrow. Reviewed risks and benefits, and patient has tolerated first 2 doses well. -Gather collateral information if able to identify any supports in the community. 12/06 -Patient reports that he feels that he is responding favorably to risperidone. He notes some difficulty with sedation, and, more specifically, says that he misses having as much energy has he had had prior to admission. However, he also agrees that his thinking has become more organized, he has become more calm, and he is now sleeping well. -We discussed with the patient the fact that he had responded favorably to a combination of risperidone and lithium carbonate in the past, and the patient said that he recalls taking lithium carbonate and does not recall any adverse effects. However, he seemed ambivalent about the question of adding a second psychiatric medication at this point. We recommended that he remain in the hospital so that we can restart lithium carbonate as a mood stabilizer. He accepts that he is having mood alterations and mood swings, and does endorse certain symptoms consistent with viviane in the recent past. However, he is not willing to remain hospitalized voluntarily, and we do not find at this time that he can be expected to continue to meet criteria for involuntary treatment following another 2 or 3 days of observation and medication adjustments as indicated. -The patient's request is that the decision to start lithium be made on an outpatient basis. He reports intent to be fully adherent with the outpatient medication and reiterates that the reason that he had the mental health hotline was in order to secure outpatient services. -Some of the patient's reports are contradictory, or seem somewhat unlikely. For example, he told me that he was always very close with his mother, and that she had in 2012 of amyotrophic lateral sclerosis. When I asked him if that might of had something to do with his psychiatric hospitalization, he responded by saying, "no, I do not think that my being in the hospital had anything to do with it. I then asked him if he had been with his mother when she , and he said that he had not. I asked him if he attended a or memorial service for his mother, and he said "I do not remember. I do not think so." He also told me that he had been close with his father who we reports within a year of his mother. He also said he could remember if he went to a memorial or service for his father, but he did say that he knows that his father of lung cancer. 12/07 -Increase risperidone to 2 mg twice daily, and continue as needed dose. Continue lithium, consolidate to 900 mg at bedtime for renal protection, and check trough level after 5 days (12/12/2019). -303 hearing scheduled for Tuesday. Attempt to get collateral information from his friend Willard, as this is the only support he can identify. -He will need outpatient care including psychiatry, therapy, and case management. Address on Tuesday. 12/08 -Social work attempting to contact his friend Willard for collateral information. 303 hearing tomorrow. -Continue current medication doses. Discussed option of switching risperidone to paliperidone, given patient's concern about side effects and also to allow an option of an ROBERT, but he was unwilling to do this. Previously responded to 6 mg daily of risperidone, so may need further dose titration. 12/09 -collateral information from friend indicates patient did well when in treatment in [id number], but decompensated over the next several years after he dropped out of treatment, with another acute decompensation over the past few months. -Patient is responding well to current medication and does not want to increase the doses further, in fact asking to decrease them, but would not recommend this given the fact that he symptoms are still not well controlled; continue them and check lithium level after 5 days. Discussed with him that after he is stable for approximately 6 months, he and his outpatient clinician could consider decreasing doses, but the doing so now would likely result in decompensation and longer hospitalization. -Refer for case management, outpatient psychiatry, and therapy. 12/10 - Continues to demonstrate gradual improvement with current medication regimen, but has ongoing delusions and paranoia along with disorganized and tangential thoughts. Pt consented to titrating risperidone to 2mg qAM and 3mg qHS - continuing lithium at 900mg qHS with level to be drawn on 12/11. - Pt completed [facility] phone intake - hopeful to have assigned welfare case worker meet wit h patient - Referred to [place] for medication management, will require a therapist 12/11 - Continue risperidone 2mg qAM and 3mg qHS, can consider further titration as indicated/tolerated - Pt did engage in somewhat organized conversation about cross-titration to paliperidone with option to start an ROBERT. He seemed very intrigued by this and requested additional information, but was not yet comfortable consenting to the switch. - Selby level drawn today - subtherapeutic at 0.5. Will increase lithium to 300mg qAM and 900mg qHS after discussion of risks, benefits, and dosing options with patient - Continue to encourage group participation as appropriate - Meeting with assigned welfare case worker this afternoon - Maintain private room due to continued delusions/paranoia - staff reports ongoing thought disorganization, paranoia, and occasional bizarre statements; although patient denies any of this at this time 12/12 -Reviewed Invega, Invega Sustenna, and risperidone in detail with patient, provided up-to-date patient handouts on the medications, and answered his questions. We are recommending a trial of Invega due to the more favorable side effect profile and the option of an ROBERT. He has some difficulty manipulating information, and says he would like to think about it some more before making a decision. If he does agree to Invega, we will need to check with his insurance regarding the need for a PA. -Continue increase lithium dose and consolidate to bedtime for renal protection; repeat trough level due 12/18/2019. 12/13 -The patient agrees to Invega sustenna, and tells us that he understands that we want him to take this medicine to help assure adherence with medication on an outpatient basis in preparation for discharge. -Rather than increase his oral dose to 9 mg tomorrow, we will give the patient a planned dose of Invega Sustenna 234 mg tomorrow (12/16/2019), and will repeat in approximately 4 days, probably at 156 mg IM, as indicated and tolerated. 12/14 - Pt received and reportedly tolerated initial loading injection of Invega Sustenna - reporting only injection site pain. - Continue oral Invega 6mg at this time, can discontinue oral supplementation when pt receives second loading injection - Some observed improvement in organization of thought, but still seems to be struggling with thought blocking - Maintain MNPR 12/15 - Second loading dose of Invega Sustenna due 12/18 - continue oral paliperidone 6mg until this injection - Pt continues to demonstrate thought blocking and off-topic and bizarre participation in group programming; overall improvement is observed but present behavior is still not compatible with safe community re-entry - Continue MNPR presently, discussed goal to work toward tolerating a roommate in the next few days (2) Mood disorder: 12/05 -differential includes psychotic depression or bipolar disorder. Assessment limited as patient is a poor historian. Although he reports primary depressive symptoms, his affect is expansive, and this morning he was singing and dancing and is reporting good mood. Attempt to identify someone for collateral information as above, and continue to monitor and observe mood symptoms here. He had a good response to lithium when hospitalized here in 2011, so could consider a retrial of that medication. 12/06 -The addition of risperidone 1 mg twice a day seems to have stabilized the patient's mood to some degree. The clinical data so far would suggest that the patient may meet criteria for a rapid cycling bipolar disorder or, possibly, for schizoaffective disorder bipolar type. -The patient does endorse certain manic symptoms prior to admission, as well as yesterday. He feels that risperidone has assisted him in that regard and that he has noted that his mood seems more stable. He also reports that he feels that he is more often depressed than manic. When asked to talk about his initial statement that he is "the greatest kana in the world," he initially said that he was kidding and that he understands that that sounds grandiose, but he also was able to say that in the past he has sometimes felt that way. -The patient's thought content today is probably more consistent with depression. He was somewhat self depreciating and talked about the fact that he has had difficulty with various academic pursuits (he claims that within the past 8 years she has tried several colleges, including [employer] without success). 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 He externalizes responsibility for the fact that he lost both of these jobs, but says that he recognizes that at the age of 34 he should have a steady source of income and more friendsalthough he says that he currently has 2 fairly close friends that he can count on. 12/09 -Continue to explore ways to increase socialization and supports outside of the hospital, for example by attending buddhism or other activities. 12/11 - 12/15 - Continue as above Inventory Assets Strengths: Intelligent. The patient has some insight and is willing to cooperate with treatment. Able to form positive alliances with other patients. Needs: Resolution of psychosis. Improved ability to trust. Strategy to develop an enhanced support network in the community. Risk Factors Assessment Male: Yes : Yes Do You Have Access To A Gun?: No (Patient said he is unable to own a gun as he has been involuntarily committed in the past.) Health Problems: Yes Mental Health Diagnoses: Yes Substance Use Disorders: No Previous Attempt: Yes Previous Psychiatric Hospitalization: Yes Smoker: No Protective Factors Assessment [employer] Beliefs: Yes : No Responsible for Young Children: No Employed: No Supportive Family: No Good Rapport with Provider: No Absence of Any Risk Factors Above: No Interval History Identifying Information BOBBY SRINIVASAN is a 34-year-old M who currently lives in [place] alone, has a history of schizophrenia, and was admitted on 12/06/19 01:24 on a 302 involuntary commitment for psychosis and SI with multiple plans. Chief Complaint "Um. I'm fine I think. I think good." Review of Systems Notes Constitutional: denied Cardiovascular: denied Respiratory: denied Gastrointestinal: denied Neurological: denied Psychiatric: denies symptoms other than stated above Total of at least 10 systems reviewed, pertinent positives as above and in HPI. Sleep Information Total Hours of Sleep: 7.5 Sleep Comments: pt on q-15 minute checks Meal Information Percent Meal Consumed - Breakfast: 100 Percent Meal Consumed - Lunch: 100 Percent Meal Consumed - Dinner: 100 Subjective Subjective Patient was seen & assessed and interval progress reviewed with nursing and social work. Staff report the patient continues to have inappropriate and delayed responses during groups and other conversations. He continues to verbalize rather bizarre statements and has demonstrated intermittent agitation with other patients. Pt was seen today to assess progress since admission. He states that he is feeling "pretty good." Patient reports he kept busy through out the day yesterday by "watching a movie, working out, and talking with other people." Patient continues to offer delayed responses to questions, seemingly thinking for a considerable amount of time before offering very simple responses. Patient feels that he is been benefiting from group programming, though is unable to provide specific examples of this. He does state that he felt he was able to encourage a peer yesterday, which made him feel good. Patient denies perceived anxiety, paranoia, or feelings of being uncomfortable around peers. Despite this report, patient demonstrated increased restlessness and some fidgeting behavior with this provider started a discussion about patient's ability to tolerate a roommate. Patient was encouraged to think about this treatment goal throughout the day today, with plans to revisit the topic tomorrow. Patient, himself, does not verbalize concern related to peers; however, he has intermittently been observed to be agitated with various p ersonalities on the unit, and often retreats to his room to escape the stressful situations. Patient continues to deny safety concerns related to discharge. At this time he remains agreeable with receiving the second loading injection of Invega Sustenna this coming week. Physical Exam Psychiatric Orientation: alert, oriented x 3 and + guarded (superficially cooperative) Apperance: appropriately dressed (casually, in polo shirt and scrub pants), appropriately groomed (recently showered; adequate hygiene) and appeared stated age Eye Contact: + fair eye contact Motor Behavior: no abnormal motor movements and + psychomotor agitation (appearing anxious; fidgeting with hands, some mild pacing) Speech: normal rate/rhythm/volume of speech (brief responses to questions) Affect: + anxious affect and + constricted affect Mood: no depressed mood ("Um...I guess I'd say...good?") Thought Process: + thought blocking, + looseness of associations and + concrete thought process; + thought process not clear or coherent Thought Content: + paranoid and + delusions Pt participates appropriately with superficial conversation, but continues to verbalize bizarre, off-topic, and inappropriate statements during group programming or when engaged with deeper conversations Suicidal Thoughts: denies suicidal thoughts Homicidal Thoughts: denies homicidal thoughts Hallucinations: no auditory hallucinations and no visual hallucinations Cognition: attention grossly intact and language grossly intact Estimated Intelligence: consistent with education level Insight: + limited insight Judgement: + limited judgement Vital Signs (Past 24 Hours) Last Vital Signs Temp 36.5 C 12/16/19 06:30 Pulse 64 12/16/19 06:30 Resp 16 12/16/19 06:30 BP 97/64 L 12/16/19 06:30 Pulse Ox 96 12/06/19 02:27 [facility] Current Inpatient Medications Current Inpatient Medications: Current Inpatient Medications Acetaminophen (Tylenol) 650 mg PO Q4H PRN PRN Reason: Headache or Minor Fever Stop: 01/05/20 01:23 Al Hydrox/Mg Hydrox/Simethicone (Maalox) 30 ml PO Q4H PRN PRN Reason: GI Upset Stop: 01/05/20 01:23 Bismuth Subsalicylate (Kaopectate) 15 ml PO PRN PRN PRN Reason: Loose Stool Stop: 01/05/20 01:23 Hydroxyzine HCl (Vistaril) 50 mg PO HSZ PRN PRN Reason: Insomnia Stop: 01/05/20 01:23 Hydroxyzine HCl (Vistaril) 25 mg PO Q4H PRN PRN Reason: Anxiety Stop: 01/05/20 01:23 Selby Carbonate (Selby Carbonate) 1,200 mg PO HS MOUNIKA Stop: 01/13/20 21:59 Last Admin: 12/15/19 21:26 Dose: 1,200 mg Documented by: Lorazepam (Ativan) 0.5 mg PO Q6H PRN PRN Reason: Anxiety/Agitation Stop: 01/06/20 15:04 Last Admin: 12/07/19 15:20 Dose: 0.5 mg Documented by: Magnesium Hydroxide (Milk Of Magnesia) 30 ml PO DAILY PRN PRN Reason: Constipation Stop: 01/05/20 01:23 Paliperidone (Invega) 6 mg PO QAM MOUNIKA Stop: 01/14/20 08:59 Last Admin: 12/15/19 09:07 Dose: 6 mg Documented by: Paliperidone Palmitate (Invega Sustenna) 156 mg IM ONE ONE Stop: 12/19/19 09:31 Risperidone (Risperdal) 1 mg PO Q6H PRN PRN Reason: viviane/anxiety/agitation Stop: 01/06/20 15:02 Last Admin: 12/07/19 15:24 Dose: 1 mg Documented by: Sodium Chloride (Chenoa Nasal) 1 - 2 sprays NA PRN PRN PRN Reason: Nasal Dryness/Congestion Stop: 01/05/20 01:23 Mental Health & Subst Abuse Tx Psychiatrist Name of Psychiatrist: Toshia Singleton Psychiatrist's Date of Appointment with Psychiatrist: 01/10/20 Time of Appointment with Psychiatrist: 8:20 am Psychiatric Appointment Comment: [id number] [facility] [place] Therapist Name of Therapist: [facility] Date of Therapist Appointment: 12/18/19 Time of Therapist Appointment: 6:00 pm Therapy Appointment Comment: [address] [facility], [address], [place] Ginner Helper Name of Ginner Helper: PRASAD Celeste Phone Number for Ginner Helper: [phone] Case Management Appointment Comment: [address], [address], [place] Post Discharge Appointments Primary Care Physician Name Of Family Doctor: Mee Verduzco Primary Care Provider Appointment Comment: Karthik Cruz, ZACHERY Hernandez [id number] Contact Information Discharge Discharge Address: [address] [place] [address], [place] [address]
[2019-12-16] MEDS: PALIPERIDONE 3 MG TABCR PO SCH (08:51)
[2019-12-16] MEDS: LITHIUM CARBONATE 300 MG TAB PO SCH (20:49)
[2019-12-17] MEDS: PALIPERIDONE 3 MG TABCR PO SCH (09:32)
--- NOTE | 2019-12-17 12:27 | Psychiatric Progress Note ---
Date of Service December 17, 2019 Impression / Recommendations Impression 4-year-old single male who has a history of psychosis NOS and mood disorder NOS, with multiple previous hospitalizations, but although he has had multiple visits to the emergency room for psychiatric complaints such as "depression," he has not been seen here on the inpatient unit for approximately 9 years and says he has not had any psychiatric treatment for the last several years. He presented initially with self-reports of suicidal ideation with various plans, including hanging, self poisoning, etc. Clinical findings at admission included mood alterations and psychotic symptoms. Within 24 hours he began to state that his mood was "great," and affect appeared expansive, with notably disorganized, pressured, and voluminous speech, suggestive of flight of ideas, but mood continues to vacillate with both depressive and manic symptoms. Though there has been some improvement observed, he remains psychotic and disorganized, with some ongoing evidence thought blocking. He remains guarded and reluctant to discuss his delusions. It was noted that he had been treated successfully with risperidone and lithium during hospitalization here at [facility] in 2011, and oral risperidone was converted to paliperidone to allow for initiation of an ROBERT. Pt did consent to Invega Sustenna and received the initial loading injection on 12/15/2019. He is on a 303 involuntary commitment as of 12/10/2019. (1) Psychosis: 12/05 -continue hospitalization on 302, in a medically necessary private room due to psychosis. His 302 expires on Tuesday. Continue to gather information toward the need for further involuntary commitment. -Previously diagnosed with psychosis NOS, unknown what his outpatient diagnosis was, and has not been in treatment for years. Differential includes schizophrenia, schizoaffective disorder, and a psychotic mood disorder. -He agreed to resume risperidone as it was helpful in the past, and will start 1 mg twice daily with fasting labs tomorrow. Reviewed risks and benefits, and patient has tolerated first 2 doses well. -Gather collateral information if able to identify any supports in the community. 12/06 -Patient reports that he feels that he is responding favorably to risperidone. He notes some difficulty with sedation, and, more specifically, says that he misses having as much energy has he had had prior to admission. However, he also agrees that his thinking has become more organized, he has become more calm, and he is now sleeping well. -We discussed with the patient the fact that he had responded favorably to a combination of risperidone and lithium carbonate in the past, and the patient said that he recalls taking lithium carbonate and does not recall any adverse effects. However, he seemed ambivalent about the question of adding a second psychiatric medication at this point. We recommended that he remain in the hospital so that we can restart lithium carbonate as a mood stabilizer. He accepts that he is having mood alterations and mood swings, and does endorse certain symptoms consistent with viviane in the recent past. However, he is not willing to remain hospitalized voluntarily, and we do not find at this time that he can be expected to continue to meet criteria for involuntary treatment following another 2 or 3 days of observation and medication adjustments as indicated. -The patient's request is that the decision to start lithium be made on an outpatient basis. He reports intent to be fully adherent with the outpatient medication and reiterates that the reason that he had the mental health hotline was in order to secure outpatient services. -Some of the patient's reports are contradictory, or seem somewhat unlikely. For example, he told me that he was always very close with his mother, and that she had in 2012 of amyotrophic lateral sclerosis. When I asked him if that might of had something to do with his psychiatric hospitalization, he responded by saying, "no, I do not think that my being in the hospital had anything to do with it. I then asked him if he had been with his mother when she , and he said that he had not. I asked him if he attended a or memorial service for his mother, and he said "I do not remember. I do not think so." He also told me that he had been close with his father who we reports within a year of his mother. He also said he could remember if he went to a memorial or service for his father, but he did say that he knows that his father of lung cancer. 12/07 -Increase risperidone to 2 mg twice daily, and continue as needed dose. Continue lithium, consolidate to 900 mg at bedtime for renal protection, and check trough level after 5 days (12/12/2019). -303 hearing scheduled for Tuesday. Attempt to get collateral information from his friend Willard, as this is the only support he can identify. -He will need outpatient care including psychiatry, therapy, and case management. Address on Tuesday. 12/08 -Social work attempting to contact his friend Willard for collateral information. 303 hearing tomorrow. -Continue current medication doses. Discussed option of switching risperidone to paliperidone, given patient's concern about side effects and also to allow an option of an ROBERT, but he was unwilling to do this. Previously responded to 6 mg daily of risperidone, so may need further dose titration. 12/09 -collateral information from friend indicates patient did well when in treatment in [phone], but decompensated over the next several years after he dropped out of treatment, with another acute decompensation over the past few months. -Patient is responding well to current medication and does not want to increase the doses further, in fact asking to decrease them, but would not recommend this given the fact that he symptoms are still not well controlled; continue them and check lithium level after 5 days. Discussed with him that after he is stable for approximately 6 months, he and his outpatient clinician could consider decreasing doses, but the doing so now would likely result in decompensation and longer hospitalization. -Refer for case management, outpatient psychiatry, and therapy. 12/10 - Continues to demonstrate gradual improvement with current medication regimen, but has ongoing delusions and paranoia along with disorganized and tangential thoughts. Pt consented to titrating risperidone to 2mg qAM and 3mg qHS - continuing lithium at 900mg qHS with level to be drawn on 12/11. - Pt completed [facility] phone intake - hopeful to have assigned returned case inspector meet with patient - Referred to [facility] for medication management, will require a therapist 12/11 - Continue risperidone 2mg qAM and 3mg qHS, can consider further titration as indicated/tolerated - Pt did engage in somewhat organized conversation about cross-titration to paliperidone with option to start an ROBERT. He seemed very intrigued by this and requested additional information, but was not yet comfortable consenting to the switch. - Malverne level drawn today - subtherapeutic at 0.5. Will increase lithium to 300mg qAM and 900mg qHS after discussion of risks, benefits, and dosing options with patient - Continue to encourage group participation as appropriate - Meeting with assigned returned case inspector this afternoon - Maintain private room due to continued delusions/paranoia - staff reports ongoing thought disorganization, paranoia, and occasional bizarre statements; although patient denies any of this at this time 12/12 -Reviewed Invega, Invega Sustenna, and risperidone in detail with patient, provided up-to-date patient handouts on the medications, and answered his questions. We are recommending a trial of Invega due to the more favorable side effect profile and the option of an ROBERT. He has some difficulty manipulating information, and says he would like to think about it some more before making a decision. If he does agree to Invega, we will need to check with his insurance regarding the need for a PA. -Continue increase lithium dose and consolidate to bedtime for renal protection; repeat trough level due 12/18/2019. 12/13 -The patient agrees to Invega sustenna, and tells us that he understands that we want him to take this medicine to help assure adherence with medication on an outpatient basis in preparation for discharge. -Rather than increase his oral dose to 9 mg tomorrow, we will give the patient a planned dose of Invega Sustenna 234 mg tomorrow (12/16/2019), and will repeat in approximately 4 days, probably at 156 mg IM, as indicated and tolerated. 12/14 - Pt received and reportedly tolerated initial loading injection of Invega Sustenna - reporting only injection site pain. - Continue oral Invega 6mg at this time, can discontinue oral supplementation when pt receives second loading injection - Some observed improvement in organization of thought, but still seems to be struggling with thought blocking - Maintain MNPR 12/15 - Second loading dose of Invega Sustenna due 12/18 - continue oral paliperidone 6mg until this injection - Pt continues to demonstrate thought blocking and off-topic and bizarre participation in group programming; overall improvement is observed but present behavior is still not compatible with safe community re-entry - Continue MNPR presently, discussed goal to work toward tolerating a roommate in the next few days 12/16 - Continue current medication and treatment plan - Pt continues to appear subdued and thinking is slowed, but conversation has been somewhat more appropriate - Discontinue MNPR, encourage increased socialization as patient has been a bit more isolative (2) Mood disorder: 12/05 -differential includes psychotic depression or bipolar disorder. Assessment limited as patient is a poor historian. Although he reports primary depressive symptoms, his affect is expansive, and this morning he was singing and dancing and is reporting good mood. Attempt to identify someone for collateral information as above, and continue to monitor and observe mood symptoms here. He had a good response to lithium when hospitalized here in 2011, so could consider a retrial of that medication. 12/06 -The addition of risperidone 1 mg twice a day seems to have stabilized the patient's mood to some degree. The clinical data so far would suggest that the patient may meet criteria for a rapid cycling bipolar disorder or, possibly, for schizoaffective disorder bipolar type. -The patient does endorse certain manic symptoms prior to admission, as well as yesterday. He feels that risperidone has assisted him in that regard and that he has noted that his mood seems more stable. He also reports that he feels that he is more often depressed than manic. When asked to talk about his initial statement that he is "the greatest kana in the world," he initially said that he was kidding and that he understands that that sounds grandiose, but he also was able to say that in the past he has sometimes felt that way. -The patient's thought content today is probably more consistent with depression. He was somewhat self depreciating and talked about the fact that he has had difficulty with various academic pursuits (he claims that within the past 8 years she has tried several colleges, including [employer] without success). 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 He externalizes responsibility for the fact that he lost both of these jobs, but says that he recognizes that at the age of 34 he should have a steady source of income and more friendsalthough he says that he currently has 2 fairly close friends that he can count on. 12/09 -Continue to explore ways to increase socialization and supports outside of the hospital, for example by attending congregation or other activities. 12/11 - 12/16 - Continue as above Inventory Assets Strengths: Intelligent. The patient has some insight and is willing to cooperate with treatment. Able to form positive alliances with other patients. Needs: Resolution of psychosis. Improved ability to trust. Strategy to develop an enhanced support network in the community. Risk Factors Assessment Male: Yes : Yes Do You Have Access To A Gun?: No (Patient said he is unable to own a gun as he has been involuntarily committed in the past.) Health Problems: Yes Mental Health Diagnoses: Yes Substance Use Disorders: No Previous Attempt: Yes Previous Psychiatric Hospitalization: Yes Smoker: No Protective Factors Assessment Pentecostalism Beliefs: Yes : No Responsible for Young Children: No Employed: No Supportive Family: No Good Rapport with Provider: No Absence of Any Risk Factors Above: No Interval History Identifying Information BOBBY SRINIVASAN is a 34-year-old M who currently lives in [place] alone, has a history of schizophrenia, and was admitted on 12/06/19 01:24 on a 302 involuntary commitment for psychosis and SI with multiple plans. Chief Complaint "I don't really get paranoia anymore." Review of Systems Notes Constitutional: denied Cardiovascular: denied Respiratory: denied Gastrointestinal: denied Neurological: denied Psychiatric: denies symptoms other than stated above Total of at least 10 systems reviewed, pertinent positives as above and in HPI. Sleep Information Total Hours of Sleep: 7.5 Sleep Comments: pt on q-15 minute checks Meal Information Percent Meal Consumed - Breakfast: 75 Percent Meal Consumed - Lunch: 50 Percent Meal Consumed - Dinner: 100 Subjective Subjective Patient was seen & assessed and interval progress reviewed with treatment team. Staff report the patient has been more isolative over the last few days. He does not appear to be as paranoid as earlier in his stay; however, some of his responses in groups continue to be off topic and inappropriate. Patient's thought process is reported to be slowed. Patient was seen today to assess progress since admission. He reports that he is feeling fine, and denies fatigue despite staff reporting the patient appears more tired and has been sleeping in later in the morning. Patient claims that his mood is "good, normal." And he denies any acute concerns. Patient does ask this provider questions related to his written safety plan, and was able to discuss some aspects of warning signs he observes when his mood/thinking is unstable. Patient admits that he did receive assistance from peers and developing his safety plan. He is able to verbalize warning signs of "isolation, irritability, and paranoid thoughts." Patient was engaged in conversation about his perceived ability to recognize thoughts as paranoid, and how he would deal with this recognition outside of the hospital. Unfortunately, patient had difficulty engaging in conversation to the staff, only offering vague and simple responses. Patient does state "I do not really get paranoid anymore." Patient continues to deny significant physical concerns, and is tolerating his medication regimen. Patient was informed of his anticipated length of stay of 2 to 4 days, as well as reminded of his second loading injection of Invega Sustenna. Patient was very excited to hear his reduced length of stay, and continues to be helpful for discharge after the injection. We discussed the idea of discontinuing his medically necessary private room as part of discharge planning and ability to demonstrate that he can tolerate the presence of the roommate. Patient did not appear distressed during this conversation, and did feel that this change would be appropriate at this time. Patient denied additional needs or concerns presently. Physical Exam Psychiatric Orientation: alert, oriented x 3 and cooperative Apperance: appropriately dressed (Casually, wearing a polo shirt and scrub pants), appropriately groomed and appeared stated age Eye Contact: good eye contact Motor Behavior: steady gait and station and no abnormal motor movements Speech: normal rate/rhythm/volume of speech (Some delay in response to questions) Affect: + anxious affect (Still appearing restless and overwhelmed at times) and + blunted affect (Appearing sedated/subdued) Mood: no depressed mood ("Good, normal") Thought Process: goal directed thought process and + concrete thought process Thought Content: not paranoid, no delusions, no hopelessness and no worthlessness Suicidal Thoughts: denies suicidal thoughts Homicidal Thoughts: denies homicidal thoughts Hallucinations: no auditory hallucinations and no visual hallucinations Cognition: attention grossly intact and language grossly intact Insight: + limited insight Judgement: + limited judgement Vital Signs (Past 24 Hours) Last Vital Signs Temp 36.6 C 12/17/19 06:14 Pulse 89 12/17/19 06:14 Resp 16 12/17/19 06:14 BP 113/66 12/17/19 06:14 Pulse Ox 96 12/06/19 02:27 Results & Data ([facility]) Current Inpatient Medications Current Inpatient Medications: Current Inpatient Medications Acetaminophen (Tylenol) 650 mg PO Q4H PRN PRN Reason: Headache or Minor Fever Stop: 01/05/20 01:23 Al Hydrox/Mg Hydrox/Simethicone (Maalox) 30 ml PO Q4H PRN PRN Reason: GI Upset Stop: 01/05/20 01:23 Bismuth Subsalicylate (Kaopectate) 15 ml PO PRN PRN PRN Reason: Loose Stool Stop: 01/05/20 01:23 Hydroxyzine HCl (Vistaril) 50 mg PO HSZ PRN PRN Reason: Insomnia Stop: 01/05/20 01:23 Hydroxyzine HCl (Vistaril) 25 mg PO Q4H PRN PRN Reason: Anxiety Stop: 01/05/20 01:23 Malverne Carbonate (Malverne Carbonate) 1,200 mg PO HS MOUNIKA Stop: 01/13/20 21:59 Last Admin: 12/16/19 20:49 Dose: 1,200 mg Documented by: Lorazepam (Ativan) 0.5 mg PO Q6H PRN PRN Reason: Anxiety/Agitation Stop: 01/06/20 15:04 Last Admin: 12/07/19 15:20 Dose: 0.5 mg Documented by: Magnesium Hydroxide (Milk Of Magnesia) 30 ml PO DAILY PRN PRN Reason: Constipation Stop: 01/05/20 01:23 Paliperidone (Invega) 6 mg PO QAM MOUNIKA Stop: 01/14/20 08:59 Last Admin: 12/17/19 09:32 Dose: 6 mg Documented by: Paliperidone Palmitate (Invega Sustenna) 156 mg IM ONE ONE Stop: 12/19/19 09:31 Risperidone (Risperdal) 1 mg PO Q6H PRN PRN Reason: viviane/anxiety/agitation Stop: 01/06/20 15:02 Last Admin: 12/07/19 15:24 Dose: 1 mg Documented by: Sodium Chloride ([place] Nasal) 1 - 2 sprays NA PRN PRN PRN Reason: Nasal Dryness/Congestion Stop: 01/05/20 01:23 Mental Health & Subst Abuse Tx Psychiatrist Name of Psychiatrist: Toshia Singleton Psychiatrist's Date of Appointment with Psychiatrist: 01/10/20 Time of Appointment with Psychiatrist: 8:20 am Psychiatric Appointment Comment: [facility] Therapist Name of Therapist: Danae Mcmillan Therapist's Date of Therapist Appointment: 12/24/19 Time of Therapist Appointment: 9:00 a.m. Therapy Appointment Comment: [address] [facility] [facility], [address], [place] Folding Machine Operator Name of Folding Machine Operator: [facility] Phone Number for Folding Machine Operator: [phone] Case Management Appointment Comment: [address], [place] [address], [place] Post Discharge Appointments Primary Care Physician Name Of Family Doctor: Mee Verduzco [facility] Time of Appointment with PCP: Please follow up as needed Provider Appointment Comment: [address] [place] [address] Contact Information Discharge Discharge Address: [address] [place] [address], [place] [address]
[2019-12-17] MEDS: LITHIUM CARBONATE 300 MG TAB PO SCH (20:30)
[2019-12-18] MEDS: PALIPERIDONE 3 MG TABCR PO SCH (08:57)
--- NOTE | 2019-12-18 09:04 | Psychiatric Progress Note ---
Date of Service December 18, 2019 Impression / Recommendations Impression 4-year-old single male who has a history of psychosis NOS and mood disorder NOS, with multiple previous hospitalizations, but although he has had multiple visits to the emergency room for psychiatric complaints such as "depression," he has not been seen here on the inpatient unit for approximately 9 years and says he has not had any psychiatric treatment for the last several years. He presented initially with self-reports of suicidal ideation with various plans, including hanging, self poisoning, etc. Clinical findings at admission included mood alterations and psychotic symptoms. Within 24 hours he began to state that his mood was "great," and affect appeared expansive, with notably disorganized, pressured, and voluminous speech, suggestive of flight of ideas, but mood continues to vacillate with both depressive and manic symptoms. Though there has been some improvement observed, he remains psychotic and disorganized, with some ongoing evidence thought blocking. He remains guarded and reluctant to discuss his delusions. It was noted that he had been treated successfully with risperidone and lithium during hospitalization here at [facility] in 2011, and oral risperidone was converted to paliperidone to allow for initiation of an ROBERT. Pt did consent to Invega Sustenna and received the initial loading injection on 12/15/2019. He is on a 303 involuntary commitment as of 12/10/2019. (1) Psychosis: 12/05 -continue hospitalization on 302, in a medically necessary private room due to psychosis. His 302 expires on Tuesday. Continue to gather information toward the need for further involuntary commitment. -Previously diagnosed with psychosis NOS, unknown what his outpatient diagnosis was, and has not been in treatment for years. Differential includes schizophrenia, schizoaffective disorder, and a psychotic mood disorder. -He agreed to resume risperidone as it was helpful in the past, and will start 1 mg twice daily with fasting labs tomorrow. Reviewed risks and benefits, and patient has tolerated first 2 doses well. -Gather collateral information if able to identify any supports in the community. 12/06 -Patient reports that he feels that he is responding favorably to risperidone. He notes some difficulty with sedation, and, more specifically, says that he misses having as much energy has he had had prior to admission. However, he also agrees that his thinking has become more organized, he has become more calm, and he is now sleeping well. -We discussed with the patient the fact that he had responded favorably to a combination of risperidone and lithium carbonate in the past, and the patient said that he recalls taking lithium carbonate and does not recall any adverse effects. However, he seemed ambivalent about the question of adding a second psychiatric medication at this point. We recommended that he remain in the hospital so that we can restart lithium carbonate as a mood stabilizer. He accepts that he is having mood alterations and mood swings, and does endorse certain symptoms consistent with viviane in the recent past. However, he is not willing to remain hospitalized voluntarily, and we do not find at this time that he can be expected to continue to meet criteria for involuntary treatment following another 2 or 3 days of observation and medication adjustments as indicated. -The patient's request is that the decision to start lithium be made on an outpatient basis. He reports intent to be fully adherent with the outpatient medication and reiterates that the reason that he had the mental health hotline was in order to secure outpatient services. -Some of the patient's reports are contradictory, or seem somewhat unlikely. For example, he told me that he was always very close with his mother, and that she had in 2012 of amyotrophic lateral sclerosis. When I asked him if that might of had something to do with his psychiatric hospitalization, he responded by saying, "no, I do not think that my being in the hospital had anything to do with it. I then asked him if he had been with his mother when she , and he said that he had not. I asked him if he attended a or memorial service for his mother, and he said "I do not remember. I do not think so." He also told me that he had been close with his father who we reports within a year of his mother. He also said he could remember if he went to a memorial or service for his father, but he did say that he knows that his father of lung cancer. 12/07 -Increase risperidone to 2 mg twice daily, and continue as needed dose. Continue lithium, consolidate to 900 mg at bedtime for renal protection, and check trough level after 5 days (12/12/2019). -303 hearing scheduled for Tuesday. Attempt to get collateral information from his friend Willard, as this is the only support he can identify. -He will need outpatient care including psychiatry, therapy, and case management. Address on Tuesday. 12/08 -Social work attempting to contact his friend Willard for collateral information. 303 hearing tomorrow. -Continue current medication doses. Discussed option of switching risperidone to paliperidone, given patient's concern about side effects and also to allow an option of an ROBERT, but he was unwilling to do this. Previously responded to 6 mg daily of risperidone, so may need further dose titration. 12/09 -collateral information from friend indicates patient did well when in treatment in [id number], but decompensated over the next several years after he dropped out of treatment, with another acute decompensation over the past few months. -Patient is responding well to current medication and does not want to increase the doses further, in fact asking to decrease them, but would not recommend this given the fact that he symptoms are still not well controlled; continue them and check lithium level after 5 days. Discussed with him that after he is stable for approximately 6 months, he and his outpatient clinician could consider decreasing doses, but the doing so now would likely result in decompensation and longer hospitalization. -Refer for case management, outpatient psychiatry, and therapy. 12/10 - Continues to demonstrate gradual improvement with current medication regimen, but has ongoing delusions and paranoia along with disorganized and tangential thoughts. Pt consented to titrating risperidone to 2mg qAM and 3mg qHS - continuing lithium at 900mg qHS with level to be drawn on 12/11. - Pt completed [facility] phone intake - hopeful to have assigned home health care case manager meet with patient - Referred to [facility] for medication management, will require a therapist 12/11 - Continue risperidone 2mg qAM and 3mg qHS, can consider further titration as indicated/tolerated - Pt did engage in somewhat organized conversation about cross-titration to paliperidone with option to start an ROBERT. He seemed very intrigued by this and requested additional information, but was not yet comfortable consenting to the switch. - Cedro level drawn today - subtherapeutic at 0.5. Will increase lithium to 300mg qAM and 900mg qHS after discussion of risks, benefits, and dosing options with patient - Continue to encourage group participation as appropriate - Meeting with assigned home health care case manager this afternoon - Maintain private room due to continued delusions/paranoia - staff reports ongoing thought disorganization, paranoia, and occasional bizarre statements; although patient denies any of this at this time 12/12 -Reviewed Invega, Invega Sustenna, and risperidone in detail with patient, provided up-to-date patient handouts on the medications, and answered his questions. We are recommending a trial of Invega due to the more favorable side effect profile and the option of an ROBERT. He has some difficulty manipulating information, and says he would like to think about it some more before making a decision. If he does agree to Invega, we will need to check with his insurance regarding the need for a PA. -Continue increase lithium dose and consolidate to bedtime for renal protection; repeat trough level due 12/18/2019. 12/13 -The patient agrees to Invega sustenna, and tells us that he understands that we want him to take this medicine to help assure adherence with medication on an outpatient basis in preparation for discharge. -Rather than increase his oral dose to 9 mg tomorrow, we will give the patient a planned dose of Invega Sustenna 234 mg tomorrow (12/16/2019), and will repeat in approximately 4 days, probably at 156 mg IM, as indicated and tolerated. 12/14 - Pt received and reportedly tolerated initial loading injection of Invega Sustenna - reporting only injection site pain. - Continue oral Invega 6mg at this time, can discontinue oral supplementation when pt receives second loading injection - Some observed improvement in organization of thought, but still seems to be struggling with thought blocking - Maintain MNPR 12/15 - Second loading dose of Invega Sustenna due 12/18 - continue oral paliperidone 6mg until this injection - Pt continues to demonstrate thought blocking and off-topic and bizarre participation in group programming; overall improvement is observed but present behavior is still not compatible with safe community re-entry - Continue MNPR presently, discussed goal to work toward tolerating a roommate in the next few days 12/16 - Continue current medication and treatment plan - Pt continues to appear subdued and thinking is slowed, but conversation has been somewhat more appropriate - Discontinue MNPR, encourage increased socialization as patient has been a bit more isolative 12/17 - Continue current treatment plan - Pt continues to be isolative, but is more appropriate in conversation but continues to have slowed thinking (2) Mood disorder: 12/05 -differential includes psychotic depression or bipolar disorder. Assessment limited as patient is a poor historian. Although he reports primary depressive symptoms, his affect is expansive, and this morning he was singing and dancing and is reporting good mood. Attempt to identify someone for collateral information as above, and continue to monitor and observe mood symptoms here. He had a good response to lithium when hospitalized here in 2011, so could consider a retrial of that medication. 12/06 -The addition of risperidone 1 mg twice a day seems to have stabilized the patient's mood to some degree. The clinical data so far would suggest that the patient may meet criteria for a rapid cycling bipolar disorder or, possibly, for schizoaffective disorder bipolar type. -The patient does endorse certain manic symptoms prior to admission, as well as yesterday. He feels that risperidone has assisted him in that regard and that he has noted that his mood seems more stable. He also reports that he feels that he is more often depressed than manic. When asked to talk about his initial statement that he is "the greatest kana in the world," he initially said that he was kidding and that he understands that that sounds grandiose, but he also was able to say that in the past he has sometimes felt that way. -The patient's thought content today is probably more consistent with depression. He was somewhat self depreciating and talked about the fact that he has had difficulty with various academic pursuits (he claims that within the past 8 years she has tried several colleges, including [employer] without success). 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 He externalizes responsibility for the fact that he lost both of these jobs, but says that he recognizes that at the age of 34 he should have a steady source of income and more friendsalthough he says that he currently has 2 fairly close friends that he can count on. 12/09 -Continue to explore ways to increase socialization and supports outside of the hospital, for example by attending confucianist or other activities. 12/11 - 12/17 - Continue as above Inventory Assets Strengths: Intelligent. The patient has some insight and is willing to cooperate with treatment. Able to form positive alliances with other patients. Needs: Resolution of psychosis. Improved ability to trust. Strategy to develop an enhanced support network in the community. Risk Factors Assessment Male: Yes : Yes Do You Have Access To A Gun?: No (Patient said he is unable to own a gun as he has been involuntarily committed in the past.) Health Problems: Yes Mental Health Diagnoses: Yes Substance Use Disorders: No Previous Attempt: Yes Previous Psychiatric Hospitalization: Yes Smoker: No Protective Factors Assessment Jehovah'S Witness Beliefs: Yes : No Responsible for Young Children: No Employed: No Supportive Family: No Good Rapport with Provider: No Absence of Any Risk Factors Above: No Interval History Identifying Information BOBBY SRINIVASAN is a 34-year-old M who currently lives in [place] alone, has a history of schizophrenia, and was admitted on 12/06/19 01:24 on a 302 involuntary commitment for psychosis and SI with multiple plans. Chief Complaint "Um, I'm good. Just taking a little nap." Review of Systems Notes Constitutional: denied Cardiovascular: denied Respiratory: denied Gastrointestinal: denied Neurological: denied Psychiatric: denies symptoms other than stated above Total of at least 10 systems reviewed, pertinent positives as above and in HPI. Sleep Information Total Hours of Sleep: 6.5 Sleep Comments: pt on q-15 minute checks Meal Information Percent Meal Consumed - Breakfast: 0 Percent Meal Consumed - Lunch: 100 Percent Meal Consumed - Dinner: 100 Subjective Subjective Patient was seen & assessed and interval progress reviewed with nursing and social work. Staff report the patient has continued to be isolative, with some ongoing disorganization - but improved overall. Pt reportedly finished his safety plan with assistance from staff. Pt was seen today to assess progress since admission. Pt states he is "good" today, and reports plan to take a nap before community meeting this morning. Pt states his day yesterday was "good, I went to the meetings." Pt reports he had a phone conversation with his friend. The conversation went well, and the patient states his friend reported "I sounded good." Pt is not interested in us contacting his friend to obtain collateral and assess proximity to baseline. Pt was asked how he feels he will handle returning to his apartment and adjustments following discharge. He states "I actually feel excited." Pt reports he will drive himself to appointments. Pt denies other needs or concerns at this time. He is aware that his second loading injection of Invega Sustenna is scheduled for tomorrow and he is hopeful for discharge after. He was reminded of treatment team meeting tomorrow, and new estimated length of stay will be revealed. Physical Exam Psychiatric Orientation: alert, oriented x 3 and cooperative Apperance: appropriately dressed (casually, in short-sleeve button down shirt and scrub pants), appropriately groomed and appeared stated age Eye Contact: good eye contact Motor Behavior: steady gait and station and no abnormal motor movements Speech: normal rate/rhythm/volume of speech Affect: + blunted affect and + constricted affect Mood: no depressed mood ("good") and no anxious mood Thought Process: goal directed thought process, clear/coherent thought process and + concrete thought process Thought Content: reality based without delusions; not paranoid, no persecution and no hopelessness Suicidal Thoughts: denies suicidal thoughts, denies suicidal plan and denies suicidal intent Homicidal Thoughts: denies homicidal thoughts Hallucinations: no auditory hallucinations and no visual hallucinations Cognition: recent memory grossly intact, attention grossly intact and language grossly intact Estimated Intelligence: consistent with education level Insight: + fair insight Judgement: + fair judgement Vital Signs (Past 24 Hours) Last Vital Signs Temp 36.6 C 12/18/19 06:28 Pulse 84 12/18/19 06:28 Resp 18 12/18/19 06:28 BP 108/68 12/18/19 06:28 Pulse Ox 96 12/06/19 02:27 Results & Data ([facility]) Laboratory Results Laboratory Results - last 24 hr 12/18/19 08:46 Cedro Pending Current Inpatient Medications Current Inpatient Medications: Current Inpatient Medications Acetaminophen (Tylenol) 650 mg PO Q4H PRN PRN Reason: Headache or Minor Fever Stop: 01/05/20 01:23 Al Hydrox/Mg Hydrox/Simethicone (Maalox) 30 ml PO Q4H PRN PRN Reason: GI Upset Stop: 01/05/20 01:23 Bismuth Subsalicylate (Kaopectate) 15 ml PO PRN PRN PRN Reason: Loose Stool Stop: 01/05/20 01:23 Hydroxyzine HCl (Vistaril) 50 mg PO HSZ PRN PRN Reason: Insomnia Stop: 01/05/20 01:23 Hydroxyzine HCl (Vistaril) 25 mg PO Q4H PRN PRN Reason: Anxiety Stop: 01/05/20 01:23 Cedro Carbonate (Cedro Carbonate) 1,200 mg PO HS MOUNIKA Stop: 01/13/20 21:59 Last Admin: 12/17/19 20:30 Dose: 1,200 mg Documented by: Lorazepam (Ativan) 0.5 mg PO Q6H PRN PRN Reason: Anxiety/Agitation Stop: 01/06/20 15:04 Last Admin: 12/07/19 15:20 Dose: 0.5 mg Documented by: Magnesium Hydroxide (Milk Of Magnesia) 30 ml PO DAILY PRN PRN Reason: Constipation Stop: 01/05/20 01:23 Paliperidone (Invega) 6 mg PO QAM MOUNIKA Stop: 01/14/20 08:59 Last Admin: 12/18/19 08:57 Dose: 6 mg Documented by: Paliperidone Palmitate (Invega Sustenna) 156 mg IM ONE ONE Stop: 12/19/19 09:31 Risperidone (Risperdal) 1 mg PO Q6H PRN PRN Reason: viviane/anxiety/agitation Stop: 01/06/20 15:02 Last Admin: 12/07/19 15:24 Dose: 1 mg Documented by: Sodium Chloride ([place] Nasal) 1 - 2 sprays NA PRN PRN PRN Reason: Nasal Dryness/Congestion Stop: 01/05/20 01:23 Mental Health & Subst Abuse Tx Psychiatrist Name of Psychiatrist: Toshia Singleton Psychiatrist's Date of Appointment with Psychiatrist: 01/10/20 Time of Appointment with Psychiatrist: 8:20 am Psychiatric Appointment Comment: [id number] [facility] Therapist Name of Therapist: Danae Mcmillan Therapist's Date of Therapist Appointment: 12/24/19 Time of Therapist Appointment: 9:00 a.m. Therapy Appointment Comment: [address] [facility], [facility] [address], [place] Yardage Estimator Name of Yardage Estimator: PRASAD Celeste Phone Number for Yardage Estimator: [phone] Case Management Appointment Comment: [address] [facility], [address], [place] Post Discharge Appointments Primary Care Physician Name Of Family Doctor: Mee Verduzco Primary [facility] Time of Appointment with PCP: Please follow up as needed Provider App[facility]ment Comment[facility] [address] [place] [address] Contact Information Discharge Discharge Address: [address] [place] [address], [id number]
[2019-12-18] MEDS: LITHIUM CARBONATE 300 MG TAB PO SCH (20:26)
[2019-12-19] MEDS ORDERED: PALIPERIDONE PALMITATE 156 MG/ML SYR IM ONE (09:30)
--- NOTE | 2019-12-19 13:09 | Discharge Summary ---
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 with medication on an outpatient basis in preparation for discharge. -Rather than increase his oral dose to 9 mg tomorrow, we will give the patient a planned dose of Invega Sustenna 234 mg tomorrow (12/16/2019), and will repeat in approximately 4 days, probably at 156 mg IM, as indicated and tolerated. 12/14 - Pt received and reportedly tolerated initial loading injection of Invega Sustenna - reporting only injection site pain. - Continue oral Invega 6mg at this time, can discontinue oral supplementation when pt receives second loading injection - Some observed improvement in organization of thought, but still seems to be struggling with thought blocking - Maintain MNPR 12/15 - Second loading dose of Invega Sustenna due 12/18 - continue oral paliperidone 6mg until this injection - Pt continues to demonstrate thought blocking and off-topic and bizarre participation in group programming; overall improvement is observed but present behavior is still not compatible with safe community re-entry - Continue MNPR presently, discussed goal to work toward tolerating a roommate in the next few days 12/16 - Continue current medication and treatment plan - Pt continues to appear subdued and thinking is slowed, but conversation has been somewhat more appropriate - Discontinue MNPR, encourage increased socialization as patient has been a bit more isolative 12/17 - Continue current treatment plan - Pt continues to be isolative, but is more appropriate in conversation but continues to have slowed thinking 12/18 - Received second loading injection of Invega Sustenna (156mg) without incident - due for next injection on 01/15. - Organization of thought continues to improve (2) Mood disorder: 12/05 -differential includes psychotic depression or bipolar disorder. Assessment limited as patient is a poor historian. Although he reports primary depressive symptoms, his affect is expansive, and this morning he was singing and dancing and is reporting good mood. Attempt to identify someone for collateral information as above, and continue to monitor and observe mood symptoms here. He had a good response to lithium when hospitalized here in 2011, so could consider a retrial of that medication. 12/06 -The addition of risperidone 1 mg twice a day seems to have stabilized the patient's mood to some degree. The clinical data so far would suggest that the patient may meet criteria for a rapid cycling bipolar disorder or, possibly, for schizoaffective disorder bipolar type. -The patient does endorse certain manic symptoms prior to admission, as well as yesterday. He feels that risperidone has assisted him in that regard and that he has noted that his mood seems more stable. He also reports that he feels that he is more often depressed than manic. When asked to talk about his initial statement that he is "the greatest kana in the world," he initially said that he was kidding and that he understands that that sounds grandiose, but he also was able to say that in the past he has sometimes felt that way. -The patient's thought content today is probably more consistent with depression. He was somewhat self depreciating and talked about the fact that he has had difficulty with various academic pursuits (he claims that within the past 8 years she has tried several colleges, including [employer] without success). 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 He externalizes responsibility for the fact that he lost both of these jobs, but says that he recognizes that at the age of 34 he should have a steady source of income and more friendsalthough he says that he currently has 2 fairly close friends that he can count on. 12/09 -Continue to explore ways to increase socialization and supports outside of the hospital, for example by attending mormon or other activities. 12/11 - 12/17 - Continue as above 12/18 - Improvement in mood was reported over the course of the patient's admission Mental Health & Subst Abuse Tx Psychiatrist Name of Psychiatrist: Toshia Singleton Psychiatrist's Date of Appointment with Psychiatrist: 01/10/20 Time of Appointment with Psychiatrist: 8:20 am Psychiatric Appointment Comment: [id number] [facility] Therapist Name of Therapist: Danae Mcmillan Therapist's Date of Therapist Appointment: 12/24/19 Time of Therapist Appointment: 9:00 a.m. Therapy Appointment Comment: [phone] [facility], [facility] [address], [place] Spanish Interpreter Name of Spanish Interpreter: PRASAD Moe Roula Phone Number for Spanish Interpreter: [phone] Case Management Appointment Comment: [id number] [facility], [facility] [address], [place] Post Discharge Appointments Primary Care Physician Name Of Family Doctor: Mee Verduzco Primary Care Time of Appointment with PCP: Please follow up as needed Provider Appointment Comment: [address] [place] [address] Smoking Cessation Counseling Tobacco Cessation Medication Prescribed at Discharge: Not Applicable/Non-Smoker Contact Information Discharge Discharge Address: [address] [place] [address] Discharge Plan Discharge Items Patient Disposition: Home - Self-Care Reason For Visit: UNSPECIFIED MOOD DISORDER Discharge Diagnosis: - Psychosis NOS (r/o schizophrenia vs. schizoaffective disorder) - Mood disorder NOS (r/o depression or bipolar disorder) Condition on Discharge: Fair Activity: Resume your previous activity Non-emergency contact: Primary Care Provider, Psychiatrist, Therapist and Sales Record Clerk Call non-emergency contact if: you have any medication questions and your symptoms worsen Follow-up/Referrals: Richard Verduzco MD [Primary Care Provider] - Diet: Regular Addtl Attending Provider Instructions: SPECIAL CARE INSTRUCTIONS: 1. Follow through with your scheduled aftercare appointments. If unable to keep an appointment, please call to reschedule. 2. Take your medication only as prescribed. Medication should not be changed or stopped without the approval of your doctor. In the event of worsening symptoms or concerns about side effects, contact your doctor immediately. 3. Utilize new healthy coping skills, anger management skills, and stress management skills learned during your hospitalization. Journal feelings and process them with a support person. Identify stressors or situations that may result in relapse, deterioration or inappropriate behaviors and develop a plan to deal with those issues. 4. If your coping skills are ineffective and you are in crisis, contact your outpatient providers for direction. If unable to reach your providers, please call the CAN HELP LINE AT or go to the closest Emergency Room. 5. Avoid alcohol and un-prescribed drugs. 6. You have been provided with the Mental Health Advance Directives Pamphlet for your review. AFTERCARE APPOINTMENTS: * Please call your insurance company prior to your scheduled appointment to confirm your aftercare providers are covered. Take your insurance information to your appointments. WHO TO CALL AND WHEN: Medical Emergencies: For questions or emergencies related to your hospital stay, please contact the Inpatient Behavioral Health Unit at [phone]. A manufacturing recruiter is on-call 13/12 for the Behavioral Health Unit for emergencies At any time you feel your situation is an emergency, you may also call 911 immediately. Your Discharge Instructions noted above were prepared by provider Marisol Santamaria PA-C. Pending Studies at Discharge: No Stand-Alone Forms: My [facility] Pictures, Smoking Cessation, Suicide Prevention Resources Medications and DC Order Prescriptions: New lithium carbonate 600 mg capsule 1,200 mg PO PM 30 Days Qty: 60 RF: 0 Invega Sustenna 234 mg/1.5 mL syringe 234 mg IM Q30D Qty: 1.5 RF: 0 No Action No Known Home Medications RF: 0 Discharge Orders: Discharge Order (Routine); Ordered 12/19/19 Ordered By: Marisol Santamaria Admission Data Admit Date/Time: 12/06/19 01:24 Attending Provider: Joan Keita Admit Provider: Clayton Ariza Primary Care Provider: Richard Verduzco Other Interventions: Discharge Summary Assessment (RN) Last Done: 12/19/19 09:55 PSY Interdisciplinary Discharge Planning Last Done: 12/17/19 12:08 Coding Level of Care Code 34270 D/C day mgmt > 30 min Diagnoses Psychosis F29 Mood disorder F39
== END 2019-12-19 14:40 | disposition home or self-care (01) | DRG 885 ==
LOC: ED 20:48 → 3S 12-06 01:24